=== PATIENT | female | born 1950 | race Caucasian/White ===

== ENCOUNTER → 2017-03-16 | Outpatient (POV) | payer MEDICARE, BC, SELFPAY | PROVIDERS: Visit Provider Internal Medicine | DX: I20.8 Other forms of angina pectoris (principal); I10 Essential (primary) hypertension; E78.5 Hyperlipidemia, unspecified; R00.1 Bradycardia, unspecified; R94.31 Abnormal electrocardiogram [ECG] [EKG]; G89.29 Other chronic pain; Z77.22 Contact with and (suspected) exposure to environmental tobacco smoke (acute) (chronic) | CPT/HCPCS: 36415; 71020; 80048; 80061; 80076; 84439; 84443; 85025; 93005 ==

== ENCOUNTER → 2017-03-18 | Outpatient (CLI) | payer MEDICARE, BC, SELFPAY | PROVIDERS: Family Provider Family Medicine; Visit Provider Internal Medicine | DX: I20.8 Other forms of angina pectoris (principal); I10 Essential (primary) hypertension; E78.5 Hyperlipidemia, unspecified; R00.1 Bradycardia, unspecified; Z77.29 Contact with and (suspected) exposure to other hazardous substances | CPT/HCPCS: 93306 ==

== ENCOUNTER → 2017-04-09 10:52 | Outpatient (CLI) | payer MEDICARE, BC, SELFPAY ==
--- NOTE | 2017-04-09 10:57 | NM_ITS ---
SPECT MYOCARDIAL PERFUSION SCAN, REST AND STRESS: EXERCISE STRESS: [facility] REVIEW QGS EF AND WALL MOTION EVALUATION: QPS - PERFUSION EVALUATION: HISTORY: Chest pain PROCEDURE: Rest imaging performed after administration of10.33 millicuries Tc MIBI. Dose administered at11:05 a.m., with imaging thereafter. Stress imaging was then performed following9 minutes 30 seconds of exercise stress. The patient achieved a heart [id number] with projected heart rate of120 . Resting BP169/76 with stress 168/86. At maximum exercise stress,30.6 millicuries Tc MIBI administered at1:15 pm with minutes thereafter. FINDINGS: Perfusion Evaluation: The single slice spect images as well as the [facility] bull's-eye data summary were reviewed. Wall Motion and Ejection Fraction Evaluation: Gated SPECT review and analysis used to evaluate these features. There is a 72 % left ventricular ejection fraction. There seems to be good wall motion Uniform myocardial activity with both stress and rest IMPRESSION: No scintigraphic evidence of exercise induced myocardial ischemia. Normal ejection fraction normal wall motion
== END ==
PROVIDERS: Family Provider Family Medicine; PCP Family Medicine; Visit Provider Internal Medicine
DX: R94.31 Abnormal electrocardiogram [ECG] [EKG] (principal); I20.9 Angina pectoris, unspecified; Z77.22 Contact with and (suspected) exposure to environmental tobacco smoke (acute) (chronic); I10 Essential (primary) hypertension; E78.4 Other hyperlipidemia
CPT/HCPCS: 78452; 93017; A9502

== ENCOUNTER → 2017-04-14 11:52 | Outpatient (CLI) | payer MEDICARE, BC, SELFPAY ==
[2017-04-14 12:16] LABS: Basophils # 0.1 K/mm3 (0-0.2); Basophils % 0.9 % (0.1-2.0); Eosinophils # 0.3 K/mm3 (0.0-0.4); Eosinophils % 2.2 % (0.1-12.0); Hematocrit 41.5 % (37.0-47.0); Hemoglobin 13.5 g/dL (12.2-16.2); Lymphocytes # 4.4 K/mm3 (0.7-4.5); Lymphocytes % 38.6 K/mm3 (10-50); Mean Corpuscular HGB Conc 32.5 g/dL (31.8-35.4); Mean Corpuscular Hemoglobin 28.9 pg (27.0-31.2); Mean Corpuscular Volume 88.8 fl (81-99); Mean Platelet Volume 7.8 fl (7.4-10.4); Monocytes # 0.6 K/mm3 (0.1-1.0); Monocytes % 5.5 % (1.7-9.3); Neutrophils # 5.9 K/mm3 (1.8-7.8); Neutrophils % 52.8 % (37.0-80.0); Platelet Count 237 K/mm3 (142-424); Red Blood Count 4.67 M/mm3 (4.20-5.40); Red Cell Distribution Width 13.3 % (11.5-17.5); White Blood Count 11.3 K/mm3 (4.8-10.8)
[2017-04-14 13:03] LABS: Anion Gap 10.4 mEq/L (5-15); Blood Urea Nitrogen 21 mg/dL (7-18); Carbon Dioxide 32 mmol/L (21.0-32.0); Chloride 102 mmol/L (98-107); Creatinine,Serum 0.84 mg/dL (0.55-1.02); Estimated Glomerular Filt Rate 67 ml/min (>60); GFR (African American) 82 ML/MIN (>60); Glucose 102 mg/dL (74-106); Potassium 4.4 mmoL/L (3.5-5.1); Sodium 140 mmol/L (136-145)
== END ==
PROVIDERS: PCP Internal Medicine; Visit Provider Internal Medicine
DX: R94.39 Abnormal result of other cardiovascular function study (principal); I20.8 Other forms of angina pectoris; I10 Essential (primary) hypertension; Z77.22 Contact with and (suspected) exposure to environmental tobacco smoke (acute) (chronic); J45.909 Unspecified asthma, uncomplicated; Z82.49 Family history of ischemic heart disease and other diseases of the circulatory system
CPT/HCPCS: 36415; 80048; 85025

== ENCOUNTER 2017-04-20 07:28 | Day surgery (SDC) | payer MEDICARE, BC, SELFPAY ==
[2017-04-20] VITALS (15 sets, daily range): BP systolic 111–186; BP diastolic 60–96; PULSE 59–83; RESP 16–20; TEMP 36.9; O2SAT 93–100; BMI 22.3
--- NOTE | 2017-04-20 | IR_ITS ---
CARDIAC CATHETERIZATION DATE OF CATHETERIZATION:04/20/2017 11:10 AM PROCEDURES: 1. Left heart catheterization 2. Left ventriculogram 3. Selective coronary angiogram 4. Drug-eluting stent deployment to the distal dominant circumflex artery 5. FFR to the LAD 6. FFR to the ramus intermedius INDICATION FOR TEST: 1. Intolerable angina pectoris despite 2 antianginal medications 2. Abnormal stress test 3. Coronary artery disease Informed consent was obtained prior to the procedure. COMPLICATIONS: None ESTIMATED BLOOD LOSS: Less than 10 ml. TECHNIQUE: One percent lidocaine was used to anesthetize the right groin. The right femoral artery was accessed via the Seldinger technique. A 4-Botswanan sheath was placed in the right femoral artery. The JL-4 and JR-4 catheter was also used to perform left heart catheterization left ventriculogram and selective coronary angiogram. At the end of the diagnostic angiogram the 4 B[place]wanan sheath was exchanged for a 6 B[place]wanan sheath and 8000 units of heparin was administered intravenously. An ACT of 343 seconds. A JL 4 guide catheter was used intubate the left main artery and a choice PT wire was placed into the distal circumflex. A 2.75 x 15 mm resolute Naselle stent was deployed at 20 chaparro reducing the focal 80-90% stenosis to less than 10%. Excellent angiographic results were obtained with JAMIE-3 flow down the vessel before and after the procedure. Following this an FFR wire was normalized in the ascending aorta and then placed into the LAD. Adenosine was infused per protocol which produced an FFR index of 0.84. This did not meet hemodynamic significance therefore the wire was pulled back and placed into the ramus intermedius and adenosine was infused this time producing an FFR index of 0.87. At the end of the procedure the closing ACT was 308 seconds. The apparatus was removed the groin is reprepped closure changed sheath was removed and hemostasis was achieved using Perclose device patient transferred to the postop holding area in stable condition ANGIOGRAPHIC RESULTS: 1. The left main artery normal 2. The left anterior descending artery is a small caliber vessel and has a proximal concentric 60% stenosis with normal mid segment and distal segment which produced an FFR index of 0.84 3. The ramus intermedius is a large vessel and has a proximal eccentric 50-60% stenosis which produced an FFR index of 0.87 4. The circumflex artery is a large dominant vessel and has a distal ventriculogram and 90% stenosis 5. The right coronary artery is a vestigial vessel and normal 6. The DENNISON ventriculogram reveals normal 65% 7. The left ventricular end-diastolic pressure 10 to 15 mmHg IMPRESSION: 1. Coronary artery disease as described above 2. Successful stenting of the distal circumflex artery severe disease reduced to 0% with 1 drug-eluting stent 3. Angiographically moderate to severe proximal LAD disease which produced an FFR index of 0.84 which is not hemodynamically significant at this time 4. Angiographically moderate disease in the proximal large ramus intermedius which produced an FFR 5. 0.87 which is not hemodynamically significant at this time 6. Normal ejection fraction 7. Very mildly elevated LVEDP PLAN: 1. Brilinta and aspirin 2. LDL less than 55 3. Risk factor modification 4. Avoidance of tobacco products 5. Cardiac rehabilitation
[2017-04-20 08:13] LABS: Basophils # 0.1 K/mm3 (0-0.2); Basophils % 0.8 % (0.1-2.0); Eosinophils # 0.3 K/mm3 (0.0-0.4); Eosinophils % 2.8 % (0.1-12.0); Hematocrit 40.5 % (37.0-47.0); Hemoglobin 13.4 g/dL (12.2-16.2); Lymphocytes % 45.5 K/mm3 (10-50); Mean Corpuscular HGB Conc 33.2 g/dL (31.8-35.4); Mean Corpuscular Hemoglobin 29.4 pg (27.0-31.2); Mean Corpuscular Volume 88.5 fl (81-99); Monocytes # 0.5 K/mm3 (0.1-1.0); Monocytes % 5.7 % (1.7-9.3); Neutrophils % 45.2 % (37.0-80.0); Platelet Count 220 K/mm3 (142-424); Red Blood Count 4.57 M/mm3 (4.20-5.40); Red Cell Distribution Width 13.2 % (11.5-17.5); White Blood Count 8.9 K/mm3 (4.8-10.8)
[2017-04-20 08:17] LABS: Anion Gap 9.9 mEq/L (5-15); Blood Urea Nitrogen 27 mg/dL (7-18); Carbon Dioxide 30 mmol/L (21.0-32.0); Chloride 103 mmol/L (98-107); Creatinine Clearance Estimated 46 mL/min (0-300); Estimated Glomerular Filt Rate 62 ml/min (>60); GFR (African American) 75 ML/MIN (>60); Glucose 94 mg/dL (74-106); Potassium 3.9 mmoL/L (3.5-5.1); Sodium 139 mmol/L (136-145)
[2017-04-20 14:50] LABS: CATHL Activated Clotting Time 308 SEC (74-125)
[2017-04-20 14:51] LABS: CATHL Activated Clotting Time 343 SEC (74-125)
[2017-04-20 15:26] LABS: POC Glucose,Bedside 107 mg/dL
== END 2017-04-20 15:17 | disposition home or self-care (01) ==
LOC: CATHLAB 07:30
PROVIDERS: Family Provider Family Medicine; PCP Internal Medicine; Visit Provider Internal Medicine
DX: I25.119 Atherosclerotic heart disease of native coronary artery with unspecified angina pectoris; R94.39 Abnormal result of other cardiovascular function study; Z72.0 Tobacco use; I11.9 Hypertensive heart disease without heart failure
CPT/HCPCS: 80048; 82962; 85025; 85347; 92928; 93458; 93571; 93572; 99152; 99153; C1725; C1760; C1769; C1876; C9600; J0153; J1644; Q9967

== ENCOUNTER → 2017-05-06 11:22 | Outpatient (CLI) | payer MEDICARE, BC, SELFPAY ==
[2017-05-06 11:31] LABS: Microscopic, Urine URINE MICROSCOPIC (MICROSCOPIC)
[2017-05-06 11:53] LABS: Appearance,Urine CLEAR (Clear); Bilirubin,Urine Negative (Negative); Blood, Urine Negative (Negative); Color,Urine YELLOW (Yellow); Glucose,Urine (UA) Negative (Negative); Ketones,Urine Negative (Negative); Leukocyte Esterase,Urine Negative (Negative); Nitrate,Urine Negative (Negative); PH,Urine 6.5 (5.0-8.5); Protein,Urine Negative (Negative); Specific Gravity, Urine 1.015 (1.005-1.030); Urobilinogen,Urine 0.2 EU/dl (0.2)
[2017-05-06 12:34] LABS: Anion Gap 11.5 mEq/L (5-15); Blood Urea Nitrogen 24 mg/dL (7-18); Carbon Dioxide 30 mmol/L (21.0-32.0); Chloride 104 mmol/L (98-107); Creatine Kinase 109 U/L (26-192); Creatinine,Serum 1.14 mg/dL (0.55-1.02); Estimated Glomerular Filt Rate 47 ml/min (>60); GFR (African American) 57 ML/MIN (>60); Glucose 105 mg/dL (74-106); Potassium 4.5 mmoL/L (3.5-5.1); Sodium 141 mmol/L (136-145)
[2017-05-06 12:39] LABS: Bacteria,Urine Trace /lpf; RBC,Urine Occasional #/hpf (0-3); WBC,Urine Occasional #/hpf (0-3)
== END ==
PROVIDERS: PCP Family Medicine; Visit Provider Internal Medicine
DX: E78.5 Hyperlipidemia, unspecified (principal)
CPT/HCPCS: 36415; 80048; 81001; 82550

== ENCOUNTER 2017-05-12 12:03 | Emergency (ER) | payer MEDICARE, BC, SELFPAY ==
[2017-05-12 12:55] VITALS: BP 120/65; PULSE 77; RESP 18; TEMP 37.9; O2SAT 98; BMI 21.5
--- NOTE | 2017-05-12 13:01 | HMH.EDUTC ---
[facility] [place] Disposition Clinical Impression: Influenza Disposition: Home, Self-Care Condition on Discharge: Good Instructions: Influenza Additional Instructions: ? Start Tamiflu today if you are going to take it. Discussed risk and possible benefits. ? Lots of rest ? Increase Fluids water, Gatorade, powerade, pedialyte,if /toddler/child ? Alternate Tylenol and / or ibuprofen as discussed for fever, aches, chills x 24 hours without medication for symptoms ? Follow up IMMEDIATELY for new or worsening Symptoms OR no noticeable improvement over the next 48-72 hours, 911 for difficulty or breathing ? You or your child area contagious until no fever, aches, chills for 24 hours with medication for symptoms Prescriptions: Dextromethorphan Polistirex [Delsym] 10 ml PO Q12H PRN #300 jasson.er.12h PRN Reason: Cough Oseltamivir Phosphate [Tamiflu 75mg Capsule] 75 mg PO BID #10 cap Referrals: Ciaran Stubbs MD [Primary Care Provider] - Time of Disposition: 13:10 Medical Decision Making - Medical Records Medical records reviewed: Yes: I reviewed the patient's medical records. Vital Signs: 05/12/17 12:55 Temperature 100.2 F H Temperature Source Temporal Artery Scan Pulse Rate [Right] 77 Respiratory Rate 18 Blood Pressure [Right Arm] 120/65 Blood Pressure Mean [Right Arm] 83 Blood Pressure Source [Right Arm] Automatic Cuff Blood Pressure Position [Right Arm] Sitting 02 Sat by Pulse Oximetry 98 Oxygen Delivery Method Room Air - Jaya Inquiry Pt receiving controlled substance: No Jaya was queried for this patient: No - Reevaluation(s) Reevaluation #1: Patient denies shortness of breath state that she has bad cough and didn't get much rest last night due to the coughing. State that she came in because she felt like she may have the flu [facility] [place] HPI - General Stated complaint: flu like symptoms Mode of Arrival: Ambulatory Source of Information: Patient Limitations: No Limitations Description of Symptoms (Recalled from Triage Doc. by RN): STATES HAS FLU HEENT Symptoms (Recalled from RN notes): Yes Resp Symptoms (Recalled from RN notes): No Skin Symptoms (Recalled from RN notes): No MS Symptoms (Recalled from RN notes): No Functional Status (Recalled from RN notes): N - History of Present Illness Provider Complaint: Patient state that she has been having flu like symptoms since yesterday that has continued to get worse State that she began running a low grade fever this morning and having a bad cough States that she continued to feel worse so she came in to get checked - Related Data Home Medications Medication Instructions Recorded Confirmed albuterol sulfate HFA 90 2 puff INHALATION Q6H 03/30/17 04/19/17 mcg/actuation aerosol inhaler bisoprolol 10 1 tab PO QDAY 03/30/17 04/19/17 mg-hydrochlorothiazide 6.25 mg tablet calcium carbonate 500 mg calcium 500 mg PO QDAY tab 03/30/17 04/19/17 (1,250 mg) chewable tablet cholecalciferol (vitamin D3) 400 400 unit PO QDAY 03/30/17 04/19/17 unit tablet diphenhydramine 25 mg capsule 50 mg PO TID-QID PRN 03/30/17 04/19/17 losartan 100 mg tablet 100 mg PO QDAY 03/30/17 04/19/17 meloxicam 15 mg tablet 15 mg PO QDAY 03/30/17 04/19/17 simvastatin 20 mg tablet 40 mg PO QAM tab 04/02/17 04/19/17 aspirin 81 mg tablet,delayed 81 mg PO QDAY 04/28/17 release ticagrelor 90 mg tablet 90 mg PO BID 04/28/17 cyclobenzaprine 5 mg tablet 5 mg PO TID PRN 05/11/17 Previous Rx's Medication Instructions Recorded amlodipine 10 mg tablet 10 mg PO BID #60 tab 04/28/17 ranolazine ER 500 mg 500 mg PO Q12H #60 tab 05/11/17 tablet,extended release,12 hr Dextromethorphan Polistirex 10 ml PO Q12H PRN #300 jasson.er.12h 05/12/17 [Delsym] Oseltamivir Phosphate [Tamiflu 75 mg PO BID #10 cap 05/12/17 75mg Capsule] Allergies Allergy/AdvReac Type Severity Reaction Status Date / Time PENICILLIN Allergy Intermediate I-RASH Uncoded 03/16/17 15:05 - Worker
--- NOTE | 2017-05-12 13:04 | ED_ITS ---
[facility] [place] Impression: Influenza Disposition: Home, Self-Care Condition on Discharge: Good Instructions: Influenza Additional Instructions: ? Start Tamiflu today if you are going to take it. Discussed risk and possible benefits. ? Lots of rest ? Increase Fluids water, Gatorade, powerade, pedialyte,if infant/toddler/child ? Alternate Tylenol and / or ibuprofen as discussed for fever, aches, chills x 24 hours without medication for symptoms ? Follow up IMMEDIATELY for new or worsening Symptoms OR no noticeable improvement over the next 48-72 hours, 911 for difficulty or breathing ? You or your child area contagious until no fever, aches, chills for 24 hours with medication for symptoms Prescriptions: Dextromethorphan Polistirex [Delsym] 10 ml PO Q12H PRN #300 jasson.er.12h PRN Reason: Cough Oseltamivir Phosphate [Tamiflu 75mg Capsule] 75 mg PO BID #10 cap Referrals: Ciaran Stubbs MD [Primary Care Provider] - Time of Disposition: 13:10 Medical Decision Making - Medical Records Medical records reviewed: Yes: I reviewed the patient's medical records. Vital Signs: 05/12/17 12:55 Temperature 100.2 F H Temperature Source Temporal Artery Scan Pulse Rate [Right] 77 Respiratory Rate 18 Blood Pressure [Right Arm] 120/65 Blood Pressure Mean [Right Arm] 83 Blood Pressure Source [Right Arm] Automatic Cuff Blood Pressure Position [Right Arm] Sitting 02 Sat by Pulse Oximetry 98 Oxygen Delivery Method Room Air - Jaya Inquiry Pt receiving controlled substance: No Jaya was queried for this patient: No - Reevaluation(s) Reevaluation #1: Patient denies shortness of breath state that she has bad cough and didn't get much rest last night due to the coughing. State that she came in because she felt like she may have the flu [facility] [place] - General Stated complaint: flu like symptoms Mode of Arrival: Ambulatory Source of Information: Patient Limitations: No Limitations Description of Symptoms (Recalled from Triage Doc. by RN): STATES HAS FLU HEENT Symptoms (Recalled from RN notes): Yes Resp Symptoms (Recalled from RN notes): No Skin Symptoms (Recalled from RN notes): No MS Symptoms (Recalled from RN notes): No Functional Status (Recalled from RN notes): N - History of Present Illness Provider Complaint: Patient state that she has been having flu like symptoms since yesterday that has continued to get worse State that she began running a low grade fever this morning and having a bad cough States that she continued to feel worse so she came in to get checked - Related Data Home Medications Medication Instructions Recorded Confirmed albuterol sulfate HFA 90 2 puff INHALATION Q6H 03/30/17 04/19/17 mcg/actuation aerosol inhaler bisoprolol 10 1 tab PO QDAY 03/30/17 04/19/17 mg-hydrochlorothiazide 6.25 mg tablet calcium carbonate 500 mg calcium 500 mg PO QDAY tab 03/30/17 04/19/17 (1,250 mg) chewable tablet cholecalciferol (vitamin D3) 400 400 unit PO QDAY 03/30/17 04/19/17 unit tablet diphenhydramine 25 mg capsule 50 mg PO TID-QID PRN 03/30/17 04/19/17 losartan 100 mg tablet 100 mg PO QDAY 03/30/17 04/19/17 meloxicam 15 mg tablet 15 mg PO QDAY 03/30/17 04/19/17 simvastatin 20 mg tablet 40 mg PO QAM tab 04/02/17 04/19/17 aspirin 81 mg tablet,delayed 81 mg PO QDAY 04/28/17 release
[2017-05-12 13:11] LABS: UTC Influenza A Antigen Negative (Negative); UTC Influenza B Antigen Positive (Negative)
[2017-05-12 13:12] VITALS: BP 128/77; PULSE 88; RESP 20; TEMP 37.7
== END 2017-05-12 13:17 | disposition home or self-care (01) ==
PROVIDERS: Emergency Provider Nurse Practitioner; Family Provider Family Medicine; PCP Family Medicine
DX: J11.1 Influenza due to unidentified influenza virus with other respiratory manifestations (principal); Z79.82 Long term (current) use of aspirin; J45.909 Unspecified asthma, uncomplicated; E78.5 Hyperlipidemia, unspecified; I10 Essential (primary) hypertension; Z88.0 Allergy status to penicillin; Z96.642 Presence of left artificial hip joint
CPT/HCPCS: G0463; 87804; 99202

== ENCOUNTER 2017-06-01 12:49 | Outpatient (RCR) | payer MEDICARE, BC, SELFPAY | END 2017-07-28 11:14 | disposition home or self-care (01) | LOC: PT 12:49 | PROVIDERS: Family Provider Family Medicine; PCP Family Medicine; Visit Provider Internal Medicine | DX: Z95.5 Presence of coronary angioplasty implant and graft (principal) | CPT/HCPCS: 93798 ==

== ENCOUNTER → 2017-07-20 13:34 | Outpatient (CLI) | payer MEDICARE, BC, SELFPAY ==
[2017-07-20 16:01] LABS: Anion Gap 13.6 mEq/L (5-15); Blood Urea Nitrogen 29 mg/dL (7-18); Carbon Dioxide 30 mmol/L (21.0-32.0); Chloride 105 mmol/L (98-107); Creatinine,Serum 1.11 mg/dL (0.55-1.02); Estimated Glomerular Filt Rate 49 ml/min (>60); GFR (African American) 59 ML/MIN (>60); Glucose 106 mg/dL (74-106); Potassium 3.6 mmoL/L (3.5-5.1); Sodium 145 mmol/L (136-145)
== END ==
PROVIDERS: Visit Provider Internal Medicine
DX: I25.118 Atherosclerotic heart disease of native coronary artery with other forms of angina pectoris (principal); R94.31 Abnormal electrocardiogram [ECG] [EKG]; J45.909 Unspecified asthma, uncomplicated; K21.9 Gastro-esophageal reflux disease without esophagitis; I11.9 Hypertensive heart disease without heart failure; E78.4 Other hyperlipidemia
CPT/HCPCS: 36415; 80048

== ENCOUNTER → 2017-08-17 13:16 | Outpatient (CLI) | payer MEDICARE, BC, SELFPAY ==
[2017-08-17 14:28] LABS: Alanine Aminotransferase 24 U/L (12-78); Alkaline Phosphatase 83 U/L (46-116); Aspartate Amino Transferase 23 U/L (15-37); Bilirubin,Direct 0.2 mg/dL (0.0-0.2); Bilirubin,Indirect 0.4 mg/dL (0.0-0.9); Bilirubin,Total 0.6 mg/dL (0.2-1.0); Chol/HDL Ratio 3.6 (1-3.5); Cholesterol 210 mg/dL (140-200); HDL Cholesterol 59 mg/dL (29-89); LDL Cholesterol 120 mg/dL (0-130); Total Protein,Serum 6.9 gm/dL (6.4-8.2); Triglycerides 155 mg/dL (30-200); VLDL Cholesterol 31 mg/dL (0-40)
== END ==
PROVIDERS: Family Provider Family Medicine; PCP Family Medicine; Visit Provider Internal Medicine
DX: E78.5 Hyperlipidemia, unspecified (principal); I10 Essential (primary) hypertension
CPT/HCPCS: 36415; 80061; 80076

== ENCOUNTER → 2017-09-28 08:33 | Outpatient (CLI) | payer MEDICARE, BC, SELFPAY ==
[2017-09-28 09:53] LABS: Alanine Aminotransferase 23 U/L (12-78); Albumin Level 3.8 gm/dL (3.4-5.0); Alkaline Phosphatase 73 U/L (46-116); Aspartate Amino Transferase 18 U/L (15-37); Bilirubin,Direct 0.1 mg/dL (0.0-0.2); Bilirubin,Indirect 0.2 mg/dL (0.0-0.9); Bilirubin,Total 0.3 mg/dL (0.2-1.0); Chol/HDL Ratio 3.9 (1-3.5); Cholesterol 212 mg/dL (140-200); HDL Cholesterol 54 mg/dL (29-89); LDL Cholesterol 114 mg/dL (0-130); Total Protein,Serum 6.6 gm/dL (6.4-8.2); Triglycerides 219 mg/dL (30-200); VLDL Cholesterol 44 mg/dL (0-40)
== END ==
PROVIDERS: Visit Provider Urology
DX: E78.5 Hyperlipidemia, unspecified (principal)
CPT/HCPCS: 36415; 80061; 80076

== ENCOUNTER → 2017-11-22 09:46 | Outpatient (CLI) | payer MEDICARE, BC, SELFPAY ==
[2017-11-22 10:52] LABS: Alanine Aminotransferase 26 U/L (12-78); Albumin Level 3.7 gm/dL (3.4-5.0); Alkaline Phosphatase 72 U/L (46-116); Aspartate Amino Transferase 17 U/L (15-37); Bilirubin,Direct 0.1 mg/dL (0.0-0.2); Bilirubin,Indirect 0.3 mg/dL (0.0-0.9); Bilirubin,Total 0.4 mg/dL (0.2-1.0); Chol/HDL Ratio 2.8 (1-3.5); Cholesterol 171 mg/dL (140-200); HDL Cholesterol 62 mg/dL (29-89); LDL Cholesterol 84 mg/dL (0-130); Total Protein,Serum 6.5 gm/dL (6.4-8.2); Triglycerides 127 mg/dL (30-200); VLDL Cholesterol 25 mg/dL (0-40)
== END ==
PROVIDERS: PCP Family Medicine; Visit Provider Urology
DX: E78.5 Hyperlipidemia, unspecified (principal)
CPT/HCPCS: 36415; 80061; 80076

== ENCOUNTER → 2017-12-10 12:22 | Outpatient (CLI) | payer MEDICARE, BC, SELFPAY ==
--- NOTE | 2017-12-10 12:26 | XR_ITS ---
XR finger RT min 2V HISTORY: Trauma ITS.REASON: RT THUMB PAIN ORDERING PHYSICIAN: Ciaran Stubbs MD PATIENT AGE: 67 years COMPARISON: None FINDINGS: There is a nondisplaced corner fracture at the base of the distal phalanx of the thumb. It does appear that the fracture extends to the articular cortex of the IP joint. The first metacarpal and proximal phalanx appear intact. There is minor arthritic change at the first carpometacarpal joint.. No erosive changes evident.. 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
== END ==
PROVIDERS: PCP Family Medicine; Visit Provider Family Medicine
DX: M79.644 Pain in right finger(s) (principal)
CPT/HCPCS: 73140

== ENCOUNTER 2018-01-13 14:28 | Outpatient (RCR) | payer MEDICARE, BC, SELFPAY | END 2018-03-17 12:14 | disposition home or self-care (01) | LOC: PT 14:28 | PROVIDERS: Family Provider Family Medicine; PCP Family Medicine; Visit Provider Internal Medicine | DX: I25.10 Atherosclerotic heart disease of native coronary artery without angina pectoris (principal) | CPT/HCPCS: 93798 ==

== ENCOUNTER → 2018-02-03 15:57 | Outpatient (CLI) | payer MEDICARE, BC, SELFPAY ==
--- NOTE | 2018-02-03 16:03 | XR_ITS ---
XR knee LT 3V HISTORY: ITS.REASON: ACUTE LT KNEE PAIN ORDERING PHYSICIAN: Ciaran Stubbs MD PATIENT AGE: 67 years COMPARISON: 08/30/2007 FINDINGS: Lucency is present in the distal femur and proximal tibia from prior ACL repair. Study is otherwise unremarkable. No fracture or dislocation. No lytic or blastic change. Normal mineralization. No significant arthritic changes evident. No other significant findings IMPRESSION: Postsurgical changes stable since 08/30/2007, no change with no acute finding
== END ==
PROVIDERS: PCP Family Medicine; Visit Provider Family Medicine
DX: M25.562 Pain in left knee (principal)
CPT/HCPCS: 73562

== ENCOUNTER → 2018-02-18 11:35 | Outpatient (CLI) | payer MEDICARE, BC, SELFPAY ==
--- NOTE | 2018-02-18 11:37 | NM_ITS ---
SPECT MYOCARDIAL PERFUSION SCAN, REST AND STRESS: EXERCISE STRESS: [facility] REVIEW QGS EF AND WALL MOTION EVALUATION: QPS - PERFUSION EVALUATION: HISTORY: Chest pain, Fatigue, CAD, HTN PROCEDURE: Rest imaging performed after administration of10.89 millicuries Tc MIBI. Dose administered at12:10 p.m., with imaging thereafter. Stress imaging was then performed following9 minutes of exercise stress. The patient achieved a heart [id number] with projected heart rate of128 . Resting BP145/67 with stress 150/70. At maximum exercise stress,32.5 millicuries Tc MIBI administered at1:45 p.m. with [id number] minutes thereafter. FINDINGS: Perfusion Evaluation: The single slice spect images as well as the [facility] bull's-eye data summary were reviewed. Wall Motion and Ejection Fraction Evaluation: Gated SPECT review and analysis used to evaluate these features. There is a 73% % left ventricular ejection fraction. There seems to be good wall motion Uniform myocardial activity both stress and rest gated images calculated ejection fraction is 73% with normal wall motion IMPRESSION: No scintigraphic evidence of exercise induced myocardial ischemia with normal ejection fraction normal wall motion
--- NOTE | 2018-02-18 12:12 | HMH.ITSHM ---
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 []ATORVASTATIN AMLODIPINE ASA LOSARTAN HCTZ PLAVIX BISOPROLOL MELOXICAM
== END ==
PROVIDERS: PCP Family Medicine; Visit Provider Internal Medicine
DX: I20.8 Other forms of angina pectoris; I11.9 Hypertensive heart disease without heart failure; J45.909 Unspecified asthma, uncomplicated; K21.9 Gastro-esophageal reflux disease without esophagitis; R00.1 Bradycardia, unspecified; R06.00 Dyspnea, unspecified; R94.31 Abnormal electrocardiogram [ECG] [EKG]; Z77.22 Contact with and (suspected) exposure to environmental tobacco smoke (acute) (chronic); E78.49 Other hyperlipidemia
CPT/HCPCS: 78452; 93017; A9502

== ENCOUNTER → 2018-02-23 08:14 | Outpatient (CLI) | payer MEDICARE, BC, SELFPAY ==
--- NOTE | 2018-02-23 08:16 | MM_ITS ---
MM Dig screening mamm BI w/CAD ORDERING PHYSICIAN : Ciaran Stubbs MD PATIENT AGE: 67 years GENDER: Female COMPARISON: August 20162011, November 2009 bilateral mammogram INDICATION: ITS.REASON: SCREENING no hormones. No new complaints. Noncontributory family history. The patient does note history of skin cancer TECHNIQUE: Standard CC and MLO images were obtained. R2 CAD reviewed. FINDINGS: Areas of Very dense areas of breast tissue are seen throughout the central coneof both breast. Mammography is of decreased sensitivity in areas of this very dense breast character. . RIGHT BREAST:. On MLO view there is additional fullness at superior left breast. This may be due to overlapping shadows but would recommend CC, MLO spot view as well as ultrasound right breast to further evaluate. On the MLO view is difficult to exclude underlying nearly 4 cm ovoid density at superior right breast. LEFT BREAST:On the left breast there is a area of dense tissue at the central breast on cc view, more pronounced than previous study. Still I suspect it is merely dense fibroglandular tissue but would suggest spot view here cc and MLO spot at the central breast with ultrasound of left breast. I do not see any previous ultrasound and I believe it would be helpful in this very dense breasts to augment mammography and to more optimally evaluate these areas of dense tissue. It also be helpful as Baseline reference --------IMPRESSION: ----- Dense breast, with areas of slightly denser breast tissue noted bilaterally- although may merely be due to overlapping shadows, these areas would benefit from ultrasound & additional Spot views, bilaterally.: Right breast: Question slight denser ovoid area at the superior right breast on MLO view today, Left breast:. Questionable area of slight increased density left breast on cc view. Recommend bilateral breast ultrasound & spot views of these areas to further evaluate BI-RADS Category: 0 Need Additional Imaging Evaluation RECOMMENDED FOLLOW-UP: IMM - IMMEDIATE FOLLOW-UP RECOMMENDED Bilateral breast ultrasound. Bilateral Spot views (A letter has been sent to the patient regarding results of the study.)
== END ==
PROVIDERS: PCP Family Medicine; Visit Provider Family Medicine
DX: Z12.31 Encounter for screening mammogram for malignant neoplasm of breast (principal)
CPT/HCPCS: 77067

== ENCOUNTER → 2018-03-25 13:24 | Outpatient (CLI) | payer MEDICARE, BC, SELFPAY ==
--- NOTE | 2018-03-25 13:31 | MM_ITS ---
MM Dig mamm BI DX w/CAD COMPARISON: Digital mammograms with CAD 02/23/2018 INDICATION: Evaluation of possible asymmetric densities in each breast TECHNIQUE: Spot compression MLO and CC views and spot compression 90 degree lateral views FINDINGS: Prominent heterogenic fibroglandular densities are seen in the central portions of both breasts. The subtle and questionable ovoid area of increased density right breast appears to compress out on the additional views in the center which is a benign-appearing calcification. Also the area of slightly increased density central portion left breast presses out on the additional views. IMPRESSION: Negative problem-solving views of each breast, recommend the patient continue with yearly screening mammography BI-RADS Category: 2 Benign Finding(s) RECOMMENDED FOLLOW-UP: 1YR - 1 YEAR FOLLOW-UP (A letter has been sent to the patient regarding results of the study.)
--- NOTE | 2018-03-25 13:32 | US_ITS ---
US breast RT complete, US breast LT complete Ordering Physician: Ciaran Stubbs MD Patient Age: 67 years: Female HISTORY: ITS.REASON: ABNORMAL MAMM History: Dense breast with asymmetric densities on recent mammogram TECHNIQUE: Ultrasound both breast including axillary survey COMPARISON :Today's studies are compared to mammogram studies from today 03/25/2018 and February 23, 2018 screening mammogram. Also August 2016 and 2011 bilateral mammogram studies utilized. RIGHT BREAST ULTRASOUND. Dense breast tissue. . 12:00:. Small 5.3 mm hypoechoic nodule versus debris-filled cyst. Smooth margins. Benign configuration by ultrasound. Follow-up adequate. 5:00.: Small 7.4 mm cyst with minimal septation.. A few benign axillary lymph nodes observed not concern LEFT BREAST ULTRASOUND: Dense breast tissue. 1:00. Small likely intramammary lymph node versus small echogenic lipoma. This benign-appearing area just less than 1 cm length. Scattered scattered axillary lymph nodes. Overall benign appearance with largest measuring up 1.6 cm length. IMPRESSION: Right breast ultrasound. Small 5.4 mm benign-appearing semisolid nodule or echogenic debris-filled cyst at 12:00.. Suggest follow-up right breast ultrasound 6-8 months to confirm stable, hopefully with routine protocol thereafter Left breast ultrasound. Dense breasts.. Benign features. Follow up one year. BI-RADS Category: 3 Probably Benign Finding Short Term Follow-up Ultrasound only right breast 6 months. RECOMMENDED FOLLOW-UP: 6M - 6 MONTH FOLLOW-UP (A letter has been sent to the patient regarding the results of the study.)
== END ==
PROVIDERS: PCP Family Medicine; Visit Provider Family Medicine
DX: R92.8 Other abnormal and inconclusive findings on diagnostic imaging of breast (principal)
CPT/HCPCS: 76641; 77066

== ENCOUNTER → 2018-09-09 09:21 | Outpatient (CLI) | payer MEDICARE, SELFPAY ==
[2018-09-09 10:53] LABS: Creatinine,Urine Random 60 mg/dL (20-320)
[2018-09-09 11:26] LABS: Alanine Aminotransferase 26 U/L (12-78); Albumin Level 3.7 gm/dL (3.4-5.0); Albumin/Globulin Ratio 1.3 (1.1-1.8); Alkaline Phosphatase 71 U/L (46-116); Anion Gap 10.9 mEq/L (5-15); Aspartate Amino Transferase 19 U/L (15-37); Bilirubin,Total 0.5 mg/dL (0.2-1.0); Blood Urea Nitrogen 20 mg/dL (7-18); Calcium 9.1 mg/dL (8.5-10.1); Carbon Dioxide 29 mmol/L (21.0-32.0); Chloride 103 mmol/L (98-107); Chol/HDL Ratio 3.2 (1-3.5); Cholesterol 174 mg/dL (140-200); Creatinine,Serum 1.06 mg/dL (0.55-1.02); Estimated Glomerular Filt Rate 51 ml/min (>60); GFR (African American) 62 ML/MIN (>60); Globulin 2.8 gm/dl (1.3-3.2); Glucose 101 mg/dL (74-106); HDL Cholesterol 55 mg/dL (29-89); LDL Cholesterol 89 mg/dL (0-130); Potassium 3.9 mmoL/L (3.5-5.1); Sodium 139 mmol/L (136-145); Thyroid Stimulating Hormone 2.05 uIU/ml (0.358-3.740); Total Protein,Serum 6.5 gm/dL (6.4-8.2); Triglycerides 152 mg/dL (30-200); VLDL Cholesterol 30 mg/dL (0-40)
[2018-09-10 18:05] LABS: Microalbumin, Urine <3.0 ug/mL (Not Estab.); Vitamin D 25 Hydroxy 43.4 ng/mL (30.0-100.0)
== END ==
PROVIDERS: PCP Family Medicine; Visit Provider Family Medicine
DX: I10 Essential (primary) hypertension (principal); E78.00 Pure hypercholesterolemia, unspecified; N28.9 Disorder of kidney and ureter, unspecified; M85.80 Other specified disorders of bone density and structure, unspecified site
CPT/HCPCS: 36415; 80053; 80061; 82043; 82570; 82652; 84443

== ENCOUNTER → 2018-09-20 09:26 | Outpatient (CLI) | payer MEDICARE, SELFPAY ==
--- NOTE | 2018-09-20 09:32 | XR_ITS ---
XR DEXA axial skeleton HISTORY: ITS.REASON: OSTEOPENIA ORDERING PHYSICIAN: Ciaran Stubbs MD PATIENT AGE: 67 years COMPARISON: None FINDINGS: Exam of the lumbar spine's shows multiple levels of degenerative disc disease and sclerosis therefore evaluation of the lumbar spine is limited causing false elevation of the bone density measurement. The BMD measured at the right femoral neck is 0.822 g/cm squared with a T score of -1.6. This is considered Osteopenic according to the World Health Organization criteria. Fracture risk is mild to moderate. Treatment is advised. IMPRESSION: Osteopenia.
== END ==
PROVIDERS: PCP Family Medicine; Visit Provider Family Medicine
DX: M85.89 Other specified disorders of bone density and structure, multiple sites (principal)
CPT/HCPCS: 77080

== ENCOUNTER → 2018-10-14 11:28 | Outpatient (CLI) | payer MEDICARE, SELFPAY ==
[2018-10-14 13:27] LABS: Blood Urea Nitrogen 24 mg/dL (7-18); Calcium 9.4 mg/dL (8.5-10.1); Carbon Dioxide 28 mmol/L (21.0-32.0); Chloride 103 mmol/L (98-107); Creatinine,Serum 1.35 mg/dL (0.55-1.02); Estimated Glomerular Filt Rate 39 ml/min (>60); GFR (African American) 47 ML/MIN (>60); Glucose 94 mg/dL (74-106); Sodium 140 mmol/L (136-145)
== END ==
PROVIDERS: Urology; Visit Provider Internal Medicine
DX: I11.9 Hypertensive heart disease without heart failure (principal); I25.118 Atherosclerotic heart disease of native coronary artery with other forms of angina pectoris
CPT/HCPCS: 36415; 80048

== ENCOUNTER → 2018-10-17 12:36 | Outpatient (CLI) | payer MEDICARE, SELFPAY | PROVIDERS: PCP Family Medicine; Visit Provider Physician Assistant | DX: I10 Essential (primary) hypertension; I20.9 Angina pectoris, unspecified; I25.118 Atherosclerotic heart disease of native coronary artery with other forms of angina pectoris; I77.0 Arteriovenous fistula, acquired; M79.601 Pain in right arm; R06.02 Shortness of breath; T81.9XXA Unspecified complication of procedure, initial encounter; Z95.5 Presence of coronary angioplasty implant and graft; E78.49 Other hyperlipidemia | CPT/HCPCS: 93931 ==

== ENCOUNTER → 2019-02-10 07:51 | Outpatient (CLI) | payer MEDICARE, SELFPAY ==
--- NOTE | 2019-02-10 07:54 | CA_ITS ---
APPROVED REPORT EXAM: Comprehensive 2D, Doppler, and color-flow Echocardiogram Heating Plant Superintendent: Eve Andrade RDCS Ht: 5 ft 1 in Wt: 115lbs BSA: 1.49 BP: 102/51 mmHg Indications: Shortness of Breath, CAD, Hyperlipidemia, Hypertension/HDD 2D Dimensions LVOT 1.72 cm (M/F) 1.5-2.5 M-Mode Dimensions RVDd 1.74 cm (0.9-2.6) LVDd 4.43 cm (3.5-5.7) LVDs 2.52 cm (3.5-5.7) IVSd 0.96 cm (0.6-1.1) PWd 0.98 cm (0.6-1.1) EF (Teich) 74.40% FS 43.10% EDV (Teich) 89.10 mL ESV (Teich) 22.80 mL LV Diastology E/A Ratio 1.87 Mitral Valve MV A Velocity 44.00 (40-130 cm/s) Left Ventricle Left atrium is mildly enlarged, left ventricle is normal size, mild concentric left ventricular hypertrophy, visually estimated ejection fraction 50%, there is moderate hypokinesis involving the inferior basal wall. Grade 2 diastolic dysfunction seen without tissue Doppler evidence of raise left atrial pressure. Right Ventricle Right atrium and right ventricular normal size and contractility. Aortic Valve Aortic valve is minimally thickened and fibrosed. There is no aortic stenosis aortic insufficiency. Mitral Valve Mitral valve leaflets are minimally thickened, there is mild mitral regurgitation. Tricuspid Valve Tricuspid valve is grossly normal, there is mild tricuspid regurgitation. Pulmonic Valve Pulmonic valve is poorly visualized. Great Vessels Aortic root is normal size. Pericardium No significant pericardial effusion noted. Conclusion 1. Mildly enlarged left atrium, normal left ventricular size, mild concentric left ventricular hypertrophy, visually estimated ejection fraction 50% with segmental wall motion abnormality described above, grade 2 diastolic dysfunction seen without tissue Doppler evidence of raise left atrial pressure. 2. Mild mitral and tricuspid regurgitation. 3. No significant pericardial effusion noted. Electronically signed by : Adam Shepherd, 02/11/2019 12:32:10
== END ==
PROVIDERS: PCP Family Medicine; Visit Provider Urology
DX: R06.00 Dyspnea, unspecified (principal)
CPT/HCPCS: 93306

== ENCOUNTER → 2019-02-20 11:55 | Outpatient (CLI) | payer MEDICARE, SELFPAY ==
[2019-02-20 13:57] LABS: Blood Urea Nitrogen 49 mg/dL (7-18); Calcium 9.5 mg/dL (8.5-10.1); Carbon Dioxide 27 mmol/L (21.0-32.0); Chloride 101 mmol/L (98-107); Creatinine,Serum 2.04 mg/dL (0.55-1.02); Estimated Glomerular Filt Rate 24 ml/min (>60); GFR (African American) 29 ML/MIN (>60); Glucose 92 mg/dL (74-106); Sodium 137 mmol/L (136-145)
== END ==
PROVIDERS: Visit Provider Urology
DX: E78.5 Hyperlipidemia, unspecified (principal); I11.9 Hypertensive heart disease without heart failure; I25.10 Atherosclerotic heart disease of native coronary artery without angina pectoris; R06.00 Dyspnea, unspecified; R06.01 Orthopnea
CPT/HCPCS: 36415; 80048

== ENCOUNTER → 2019-03-03 12:32 | Outpatient (CLI) | payer MEDICARE, SELFPAY ==
[2019-03-03 13:54] LABS: Anion Gap 14.3 mEq/L (5-15); Blood Urea Nitrogen 36 mg/dL (7-18); Calcium 9.2 mg/dL (8.5-10.1); Carbon Dioxide 30 mmol/L (21.0-32.0); Chloride 101 mmol/L (98-107); Creatinine,Serum 1.74 mg/dL (0.55-1.02); Estimated Glomerular Filt Rate 29 ml/min (>60); GFR (African American) 35 ML/MIN (>60); Glucose 97 mg/dL (74-106); Potassium 5.3 mmoL/L (3.5-5.1); Sodium 140 mmol/L (136-145)
== END ==
PROVIDERS: Visit Provider Physician Assistant
DX: E78.5 Hyperlipidemia, unspecified (principal); I11.9 Hypertensive heart disease without heart failure; I25.10 Atherosclerotic heart disease of native coronary artery without angina pectoris; R06.00 Dyspnea, unspecified; R06.01 Orthopnea
CPT/HCPCS: 36415; 80048

== ENCOUNTER → 2019-03-08 12:34 | Outpatient (CLI) | payer MEDICARE, SELFPAY ==
[2019-03-08 15:23] LABS: Anion Gap 14.6 mEq/L (5-15); Blood Urea Nitrogen 41 mg/dL (7-18); Carbon Dioxide 28 mmol/L (21.0-32.0); Chloride 104 mmol/L (98-107); Creatinine,Serum 1.81 mg/dL (0.55-1.02); Estimated Glomerular Filt Rate 28 ml/min (>60); GFR (African American) 33 ML/MIN (>60); Glucose 82 mg/dL (74-106); Potassium 4.6 mmoL/L (3.5-5.1); Sodium 142 mmol/L (136-145)
== END ==
PROVIDERS: Visit Provider Urology
DX: I11.9 Hypertensive heart disease without heart failure; E78.5 Hyperlipidemia, unspecified; I25.10 Atherosclerotic heart disease of native coronary artery without angina pectoris; R06.00 Dyspnea, unspecified; R06.01 Orthopnea
CPT/HCPCS: 36415; 80048

== ENCOUNTER → 2019-04-27 09:37 | Outpatient (CLI) | payer MEDICARE, SELFPAY ==
--- NOTE | 2019-04-27 09:40 | MM_ITS ---
PROCEDURE: MM DIG SCREENING MAMM BI W/CAD CLINICAL INDICATION: SCREENING There is no personal or family history of breast cancer COMPARISON: [facility] DIG MAMM-SCREEN RADHA W/CAD from 09/16/2016 [facility] MM Dig screening mamm BI w/CAD from 02/23/2018 [facility] MM Dig mamm BI DX w/CAD from 03/25/2018 TECHNIQUE: Standard CC and MLO images and 3D Tomosinthisis was obtained. R2 CAD reviewed. FINDINGS: Prominent somewhat heterogenic fibroglandular densities are seen in the central portions of both breasts. There is a benign-appearing calcification right breast. There is a possible new asymmetric density upper-outer quadrant right breast which is better seen on the tomosynthesis views. This may represent simply asymmetric glandular elements however recommend the patient return for spot compression views and ultrasound may be necessary as well. There are no suspicious microcalcifications. IMPRESSION: Moderate diffuse breast density with possible new asymmetric density right breast BI-RAD Category: 0 Need Additional Imaging Evaluation FOLLOW-UP: IMM Immediate Follow-up Recommended (A letter has been sent to the patient regarding results of the study.) Dictated by: Dr. William Chapman MD 04/28/2019 12:[address] William Chapman MD in [place] 04/28/2019 12:49
== END ==
PROVIDERS: PCP Family Medicine; Visit Provider Family Medicine
DX: Z12.31 Encounter for screening mammogram for malignant neoplasm of breast (principal)
CPT/HCPCS: 77063; 77067

== ENCOUNTER → 2019-05-10 12:51 | Outpatient (CLI) | payer MEDICARE, SELFPAY ==
[2019-05-10 15:14] LABS: Alanine Aminotransferase 16 U/L (9-52); Alkaline Phosphatase 66 U/L (46-116); Aspartate Amino Transferase 17 U/L (15-37); Bilirubin,Direct 0.1 mg/dL (0.0-0.2); Bilirubin,Indirect 0.3 mg/dL (0.0-0.9); Bilirubin,Total 0.4 mg/dL (0.2-1.0); Chol/HDL Ratio 4.8 (1-3.5); Cholesterol 247 mg/dL (140-200); HDL Cholesterol 51 mg/dL (29-89); LDL Cholesterol 149 mg/dL (0-130); Total Protein,Serum 6.8 g/dL (6.4-8.2); Triglycerides 236 mg/dL (30-200); VLDL Cholesterol 47 mg/dL (0-40)
== END ==
PROVIDERS: Visit Provider Urology
DX: E78.5 Hyperlipidemia, unspecified (principal); I25.10 Atherosclerotic heart disease of native coronary artery without angina pectoris
CPT/HCPCS: 36415; 80061; 80076

== ENCOUNTER → 2019-05-17 11:37 | Outpatient (CLI) | payer MEDICARE, SELFPAY ==
--- NOTE | 2019-05-17 | CA_ITS ---
APPROVED REPORT Exam: Pharmacologic Technologist: Netta Melgoza Ht: 5 ft 1 in Wt: 114 lbs BSA: 1.49 m2 HR: 55 bpm BP: 145/68 mmHg Indications: Abnormal EKG, Chest Pain Medical History Medications: Amlodipine,,,,, Furosemide (LASIX),,,,, Aspirin,,,,, Vitamin D3,,,,, Losartan,,,,, Albuterol,,,,, Tramadol,,,,, Calcium,,,,, MeLOXICAM,,,,, BisOPROLOL,,,,, Cyclobenzaprine,,,,, Nitroglycerin,,,,, Stress Test Details Test: LEXISCAN HR Resting HR: 62 bpm Max Heart Rate (APMHR): 150 bpm Max HR Achieved: 105 bpm Target HR (85% APMHR): 127 bpm % of APMHR: 70 Recovery HR: 80 bpm BP Resting BP: 145.0/68.0 mmHg Max BP: 145.0/68.0 mmHg Recovery BP: 125.0/61.0 mmHg ECG Clinical Exercise duration: 04:00 min Highest Stage Achieved: Exercise capacity: 1.0 METs Stress ECG Conclusion Resting ECG: Sinus bradycardia, mild ST abnormalities inferiorly and laterally, PVC Symptoms: Chest tightness, mild shortness of air, mild stomach discomfort Arrhythmias/Ectopy: Occasional PVC, one ventricular couplet ST-T Changes: 1-1.[address] depression anterolaterally and inferiorly. Conclusion: Chest pain and EKG changes concerning for ischemia. Myoview images reported separately. Test Summary REST . . . . . . . Resting REST 27:38 . . 62 . 145/ 68 . . Stage 1 . . . . . . . Myoview Injected Stage 1 01:00 . . 98 . . . . Stage 2 01:00 . . 102 . 133/ 77 . . Stage 3 . . . . . . . chest tightness Stage 3 01:00 . . 98 . 125/ 71 . . Stage 4 01:00 . . 89 . 122/ 67 . Stop exercise at 04:00 RECOVERY 01:00 . . 91 . . . . RECOVERY 02:00 . . 86 . 121/ 58 . . RECOVERY 03:00 . . 78 . 108/ 67 . . RECOVERY 04:00 . . 81 . 108/ 67 . . RECOVERY 05:00 . . 83 . 117/ 66 . . RECOVERY 06:00 . . 80 . 117/ 66 . . RECOVERY 07:00 . . 78 . 125/ 61 . . RECOVERY 08:00 . . 81 . 125/ 61 . . RECOVERY 09:00 . . 77 . 113/ 56 . . RECOVERY 10:00 . . 80 . 113/ 56 . . RECOVERY 11:00 . . 80 . 111/ 61 . . RECOVERY 12:00 . . 82 . 111/ 61 . . RECOVERY 13:00 . . 85 . 111/ 61 . . RECOVERY 13:22 . . 83 . 116/ 59 . . Electronically signed by : Adam Shepherd, 05/18/2019 15:04:22
--- NOTE | 2019-05-17 11:38 | NM_ITS ---
APPROVED REPORT Exam: Nuclear Stress Test Indication: CAD, 3 STINTS, HTN, HYPERLIPIDEMIA, FM. HX., C.P., SOB, PALPITATIONS, SYNCOPE, FATIGUE Patient Location: Outpatient Stress Tech: Netta Melgoza [place] Tech:Amada Amor, ARRT RT (R)(N)(M) Ht: 5 ft 1 in Wt: 114 lbs Bra Size: 32B HR: 55 bpm BP: 145/68 mmHg BSA: 1.49 m2 BMI: 21.5 History: CAD, 3 STINTS, HTN, HYPERLIPIDEMIA, FM. HX., C.P., SOB, PALPITATIONS, SYNCOPE, FATIGUE Procedure: Patient received a 0.4 mg of intravenous Lexiscan, resting heart rate 55 bpm, resting blood pressure 145/68 mmHg, with Lexiscan maximum heart rate achived was 103 bpm which is Less than 85 % of the maximum predicted heart rate and blood pressure was 133/77 mmHg. PVC, C.P. Electrocardiogram Resting electrocardiogram showed sinus rhythm, with Lexiscan there is additional millimeter ST segment depression noted from the baseline EKG. The EKG portion of the Lexiscan Myoview is positive for ischemia. Cardiac Stress and Resting SPECT Images: Cardiac Stress and Resting SPECT images were obtained using technetium 99m Myoview 31.3 mCi stress and 10.18 mCi at rest. Gated SPECT with analysis of segmental wall motion and calculation of the ejection fraction also done. Cardiac stress and resting SPECT images show uniform myocardial activity without segmental perfusion abnormality, computer derived ejection fraction is over 65% with no regional wall motion abnormality, right ventricle is normal size and contractility. Conclusion: 1. The EKG portion of the Lexiscan Myoview is positive for ischemia. 2. No scintigraphic evidence of reversible ischemia seen, computer derived ejection fraction is over 65% with no regional wall motion abnormality, right ventricle is normal size and contractility. 3. Likely abnormal Lexiscan Myoview study due to abnormal EKG with Lexiscan raising the concerns for presence of balanced ischemia. Electronically signed by : Adam Shepherd, 05/18/2019 15:06:27
--- NOTE | 2019-05-17 14:00 | HMH.ITSHM ---
Current Home Medications as stated by this patient Mary Espinal or desk representative. []atorvastatin amlodipine asa plavix lasix
== END ==
PROVIDERS: PCP Family Medicine; Visit Provider Urology
DX: I50.30 Unspecified diastolic (congestive) heart failure; I20.9 Angina pectoris, unspecified; I11.0 Hypertensive heart disease with heart failure
CPT/HCPCS: 78452; 93017; A9502; J2785

== ENCOUNTER → 2019-05-18 14:24 | Outpatient (CLI) | payer MEDICARE, SELFPAY ==
--- NOTE | 2019-05-18 14:26 | MM_ITS ---
PROCEDURE: MM DIG MAMM DX UNILAT RT CAD CLINICAL INDICATION: ABNORMAL MAMM COMPARISON: Mammogram 02/23/2018, 04/27/2019, and ultrasound 05/18/2019 TECHNIQUE: Standard CC and MLO images and 3D Tomosynthesis was obtained. Coned compression tomosynthesis views are also obtained over the lateral aspect of the right breast. R2 CAD reviewed. FINDINGS: The asymmetrical density in question on the screening mammogram is not reproduced as a discrete mass on this exam. There was no sonographic correlate. IMPRESSION: BI-RAD Category: 2 Benign Finding(s) FOLLOW-UP: 1YR 1 Year Follow-up (A letter has been sent to the patient regarding results of the study.) Dictated by: Corona Orellana 05/18/2019 17:11 Electronically signed by Corona Orellana in [place] 05/18/2019 17:11
--- NOTE | 2019-05-18 14:27 | US_ITS ---
PROCEDURE: US BREAST RT COMPLETE CLINICAL INDICATION: ABNORMAL MAMM COMPARISON: Mammogram FINDINGS: 05/18/2019 at the 12 o'clock position near the nipple a 5.7 by 4.8 x 2.9 millimeter complex nodule is noted. Complicated cyst is favored. At 6 o'clock near the nipple a 4.7 by 6.9 x 3.4 millimeter septated complicated cystic lesion is noted. No sonographic correlate for asymmetrical density seen in the upper outer quadrant of the breast on the screening mammogram 04/27/2019 was apparent. Nonspecific axillary lymph nodes are noted. IMPRESSION: BI-RADS category 3 probably benign six-month follow-up exam is recommended. Dictated by: Corona Orellana 05/18/2019 15:11 Electronically signed by Corona Orellana in [facility] 05/18/2019 15:11
== END ==
PROVIDERS: PCP Family Medicine; Visit Provider Family Medicine
DX: R92.8 Other abnormal and inconclusive findings on diagnostic imaging of breast (principal)
CPT/HCPCS: 76641; 77061; 77065; G0279

== ENCOUNTER → 2019-06-06 13:00 | Outpatient (CLI) | payer MEDICARE, SELFPAY ==
[2019-06-06 14:22] LABS: Anion Gap 20.4 mEq/L (5-15); Blood Urea Nitrogen 41 mg/dl (7-17); Calcium 10.2 mg/dl (8.4-10.2); Carbon Dioxide 24 mmol/L (22.0-30.0); Chloride 99 mmol/L (98-107); Estimated Glomerular Filt Rate 25 ml/min (>60); GFR (African American) 30 ML/MIN (>60); Glucose 120 mg/dl (74-100); Potassium 5.4 mmoL/L (3.5-5.1); Sodium 138 mmol/L (136-145)
== END ==
PROVIDERS: Visit Provider Urology
DX: E78.5 Hyperlipidemia, unspecified (principal); I11.9 Hypertensive heart disease without heart failure; I20.9 Angina pectoris, unspecified
CPT/HCPCS: 36415; 80048

== ENCOUNTER → 2019-06-15 12:01 | Outpatient (CLI) | payer MEDICARE, SELFPAY ==
[2019-06-15 17:21] LABS: Anion Gap 13.9 mEq/L (5-15); Blood Urea Nitrogen 28 mg/dl (7-17); Calcium 9.8 mg/dl (8.4-10.2); Carbon Dioxide 27 mmol/L (22.0-30.0); Chloride 102 mmol/L (98-107); Estimated Glomerular Filt Rate 37 ml/min (>60); GFR (African American) 45 ML/MIN (>60); Glucose 92 mg/dl (74-100); Potassium 5.9 mmoL/L (3.5-5.1); Sodium 137 mmol/L (136-145)
== END ==
PROVIDERS: Visit Provider Urology
DX: E87.5 Hyperkalemia (principal)
CPT/HCPCS: 36415; 80048

== ENCOUNTER → 2019-06-27 11:00 | Outpatient (CLI) | payer MEDICARE, SELFPAY ==
[2019-06-27 12:14] LABS: Chloride 106 mmol/L (98-107); Potassium 4.4 mmoL/L (3.5-5.1); Sodium 137 mmol/L (136-145)
[2019-06-27 12:17] LABS: Anion Gap 10.4 mEq/L (5-15); Blood Urea Nitrogen 25 mg/dl (7-17); Calcium 9.2 mg/dl (8.4-10.2); Carbon Dioxide 25 mmol/L (22.0-30.0); Estimated Glomerular Filt Rate 44 ml/min (>60); GFR (African American) 54 ML/MIN (>60); Glucose 108 mg/dl (74-100)
== END ==
PROVIDERS: Visit Provider Urology
DX: E78.5 Hyperlipidemia, unspecified (principal); E87.5 Hyperkalemia; I10 Essential (primary) hypertension; I11.9 Hypertensive heart disease without heart failure; I25.10 Atherosclerotic heart disease of native coronary artery without angina pectoris
CPT/HCPCS: 36415; 80048

== ENCOUNTER → 2019-09-06 12:17 | Outpatient (CLI) | payer MEDICARE, SELFPAY ==
[2019-09-06 13:16] LABS: Anion Gap 10.8 mEq/L (5-15); Blood Urea Nitrogen 31 mg/dl (7-17); Calcium 9.8 mg/dl (8.4-10.2); Carbon Dioxide 34 mmol/L (22.0-30.0); Chloride 99 mmol/L (98-107); Estimated Glomerular Filt Rate 44 ml/min (>60); GFR (African American) 54 ML/MIN (>60); Glucose 110 mg/dl (74-100); Potassium 4.8 mmoL/L (3.5-5.1); Sodium 139 mmol/L (136-145)
== END ==
PROVIDERS: Visit Provider Physician Assistant
DX: I25.10 Atherosclerotic heart disease of native coronary artery without angina pectoris; E78.5 Hyperlipidemia, unspecified; I11.9 Hypertensive heart disease without heart failure
CPT/HCPCS: 36415; 80048

== ENCOUNTER → 2019-10-06 09:31 | Outpatient (CLI) | payer MEDICARE, SELFPAY ==
[2019-10-06 13:09] LABS: Coronavirus 19 IgG Antibody Negative (Negative); Coronavirus 19 IgM Antibody Negative (Negative)
== END ==
PROVIDERS: Visit Provider Internal Medicine Gastroenterology
DX: Z01.818 Encounter for other preprocedural examination (principal)
CPT/HCPCS: 36415; 86328

== ENCOUNTER 2019-10-09 11:06 | Day surgery (SDC) | payer MEDICARE, SELFPAY ==
[2019-10-03 17:02] VITALS: BMI 21.5
[2019-10-09] VITALS (7 sets, daily range): BP systolic 100–143; BP diastolic 53–88; PULSE 56–70; RESP 12–18; TEMP 36.3–36.4; O2SAT 96–100
--- NOTE | 2019-10-09 12:16 | P.PN_ITS ---
[facility] Anesthesia Checklist - Patient Identification Patient Identification: Arm Band - Structural Data Admitted From: Home Planned Operative Procedure/s: colonoscopy Consent for Planned Operative Procedure(s) Verified: Yes Verified Documents: Surgical Consent, History and Physical - NPO Status Verified Time NPO: 00:00 - Additional verifications Anesthesia Reactions: No - Airway Assessment C-Spine Mobility Assessed: Yes (mp2) TMJ Mobility Assessed: Yes Dentition: Good Dentition - Neurological Assessment Level of Consciousness: Awake, Alert - Anesthesia Plan Anesthesia Risk discussed: Yes Anesthesia Plan: Verified ASA Class: III Anesthesia Type: MAC [facility] History I have reviewed the patient's past medical history: Yes Medical History: Reports:: Asthma, Coronary Artery Disease, Gastroesophageal Reflux Disease(GERD), Hyperlipidemia, Hypertension Denies:: Cancer, Diabetes Mellitus Type 1, Diabetes Mellitus Type 2, Internal Pacemaker, MRSA, Seizures *Have you ever received a pneumonia vaccine?: No *Have you received a flu vaccine this season?: Yes Other Medical History: Reports: Arthritis, Cataracts Anesthesia experience/problems:: nac Laterality Cases: Left: ACL Repair, Total Hip Replacement, Bilateral: Cataract Other Surgeries: Yes: Cardiac Catheterization, Colonoscopy, Coronary Stent, Sinus Surgery, Skin Cancer Excision, Tubal Ligation, Other (C-stent). No: Pacemaker Amputation: No Fractures: No - *Social History Smoking Status: Never smoker Alcohol Intake: never Alcohol Intake Frequency:: a few times a month Substance Use Type: denies use *Occupational Status:: other Housing: house Household Members: spouse *Travel in the last 8 weeks: None Family Hx:: Coronary Artery Disease, Heart Attack
--- NOTE | 2019-10-09 12:35 | P.PCN_ITS ---
[facility] Procedure Note Procedure Note:: Colonoscopy Procedure Report: Colonoscopy with cold snare polypectomy Endoscopist: Tanvir Villaseñor II, MD Referring physician: Ciaran Stubbs MD Date of Procedure: October 09, 2019 Equipment: Olympus 180 variable stiffness pediatric colonoscope Sedation: MAC sedation Indication: Mrs. Espinal is a 68-year-old female who is here for routine screening/surveillance colonoscopy. She did have a colonoscopy in October 2011 (Dr. Jamey Damon) which was normal. She does have some chronic constipation. She does state that her maternal aunt had colon cancer in her 80s. The patient does have rare hemorrhoidal bleeding. She reports no abdominal pain, weight loss or change in bowel habits. Procedure: Prior to the procedure, a history and physical exam was performed, and patient's medications and allergies were reviewed. The risks, benefits and alternatives of the sedation and procedure were discussed with the patient. All questions were answered and informed consent was obtained. The patient was brought to the procedure room. Patient identification and proposed procedure were verified by the physician and the nurse. The patient was placed in a left lateral decubitus position and the scope was passed under direct vision. Throughout the procedure, the patient's blood pressure, pulse, and oxygen saturations were monitored continuously. The colonoscopy was accomplished without difficulty. The patient tolerated the procedure well. Findings: On digital rectal examination there was normal rectal tone. There were no external hemorrhoids. The colonoscope was introduced through the anal canal to the rectum and advanced to the cecum. The ileocecal valve and appendiceal orifice were identified. The scope was advanced a short distance into the ileum which appeared grossly normal. The scope was then withdrawn into the colon. The cecum was normal. There were 2 polyps in the ascending colon (3 and 8 mm) and both were removed via cold snare polypectomy. There were scattered diverticuli throughout the descending and sigmoid colon (LEFT colon). The rectum itself was normal. Upon retroflexion within the rectum there were grade 1-2 internal hemorrhoids. The preparation was excellent throughout with Beacon Preparation Score of 9. The cecal time was 11 minutes. Impression: 1. Colonic polyps x2 2. Left-sided diverticulosis 3. Grade 1-2 internal hemorrhoids Plan: I will follow up the polyp pathology and recommend repeat colonoscopy again in 5-7 years based upon the polyp histology and patient's family history. I would encourage a fiber bowel regimen versus bowel habit training therapy with Linzess or trulance on a long-term daily maintenance basis.
== END 2019-10-09 13:47 | disposition home or self-care (01) ==
LOC: OUTP 11:08
PROVIDERS: PCP Family Medicine; Visit Provider Internal Medicine Gastroenterology
PROC: 0DJD8ZZ Inspection of Lower Intestinal Tract, Via Natural or Artificial Opening Endoscopic (ICD-10-PCS; CPT 45378; principal; 2019-10-09 12:00)
DX: Z12.11 Encounter for screening for malignant neoplasm of colon (principal); K63.5 Polyp of colon; K57.30 Diverticulosis of large intestine without perforation or abscess without bleeding; K64.0 First degree hemorrhoids; J45.909 Unspecified asthma, uncomplicated; I25.10 Atherosclerotic heart disease of native coronary artery without angina pectoris; K21.9 Gastro-esophageal reflux disease without esophagitis; I10 Essential (primary) hypertension; E78.5 Hyperlipidemia, unspecified; Z87.39 Personal history of other diseases of the musculoskeletal system and connective tissue; Z88.0 Allergy status to penicillin; Z79.899 Other long term (current) drug therapy
CPT/HCPCS: 45385; 88305

== ENCOUNTER → 2019-10-17 13:05 | Outpatient (CLI) | payer MEDICARE, SELFPAY ==
[2019-10-17 14:15] LABS: Blood Urea Nitrogen 22 mg/dl (7-17); Estimated Glomerular Filt Rate 55 ml/min (>60); GFR (African American) 66 ML/MIN (>60)
== END ==
PROVIDERS: Visit Provider Physician Assistant
DX: Z01.818 Encounter for other preprocedural examination (principal)
CPT/HCPCS: 36415; 82565; 84520

== ENCOUNTER → 2019-10-19 13:25 | Outpatient (CLI) | payer MEDICARE, SELFPAY ==
--- NOTE | 2019-10-19 13:25 | CT_ITS ---
PROCEDURE: CT CHEST WO/W CON CLINCAL INDICATION: chest pain Chest tightness and pain, history of asthma COMPARISON: No exams were available for comparison TECHNIQUE: IV Contrast: 75ml Optiray 350 Axial images obtained with sagittal and coronal reformats. All CT scans at the facility use one or more dose reduction, viz: automated exposure control, ma/kV adjustment per patient size (including targeted exams where dose is matched to indication, i.e. head), or iterative reconstruction technique. FINDINGS: HEART AND MEDIASTINAL STRUCTURES: Unenhanced images demonstrates coronary artery calcification and/or stent noted. No mediastinal or hilar mass or adenopathy. No evidence of aortic aneurysm or dissection. No evidence of central pulmonary embolus. LUNGS AND PLEURAL SPACES: There is some minimal atelectatic or fibrotic change in the right middle lobe and left lower lobe posteriorly. A 3 mm noncalcified nodules present in the left lower lobe posteriorly. There is a 7 mm noncalcified nodule in the lingula and a calcified nodule in the left lower lobe.. BONY STRUCTURES: No acute bony abnormalities apparent. UPPER ABDOMEN: Unremarkable. ADDITIONAL FINDINGS: No other significant abnormalities. IMPRESSION: 1. The 3 mm noncalcified nodule left lower lobe posteriorly and a 7 mm noncalcified nodule in the lingula. Recommend six-month follow-up. 2. Other nonacute findings as described above. Dictated by: Gary Carias MD 10/20/2019 12:47 Electronically signed by Gary Carias MD in [facility] 10/20/2019 12:47
== END ==
PROVIDERS: PCP Family Medicine; Visit Provider Physician Assistant
DX: I10 Essential (primary) hypertension; I25.118 Atherosclerotic heart disease of native coronary artery with other forms of angina pectoris; K21.9 Gastro-esophageal reflux disease without esophagitis; E78.49 Other hyperlipidemia
CPT/HCPCS: 71270; Q9967

== ENCOUNTER → 2019-11-20 12:35 | Outpatient (CLI) | payer MEDICARE, SELFPAY ==
--- NOTE | 2019-11-20 12:38 | US_ITS ---
PROCEDURE: US BREAST RT COMPLETE CLINICAL INDICATION: ABN US OF BREAST Follow-up complicated cyst COMPARISON: US BREASTRT US breast RT complete from 03/25/2018 US US BREAST RT COMPLETE from 05/18/2019 FINDINGS: 12 o'clock near the nipple there is a 5 mm hypoechoic nodule. Previously this appeared more hypoechoic than on today's exam however, this could be technical in nature. This the has a similar appearance when compared to 03/25/2018. A complicated cyst is present at 6 o'clock at 8 mm not significantly changed. There are small nodes in the axilla. IMPRESSION: Overall no significant change in the complicated cyst at 6 o'clock. Hypoechoic nodule at 12 o'clock at 5 mm probably unchanged considering difference in technique. Consider continued six-month follow-up. BI-RADS category 3 probably benign. Recommend six-month sonographic follow-up. At that time the patient will be due for bilateral mammogram as well Dictated by: Gary Carias MD 11/27/2019 12:59 Gary Carias MD in [facility] 11/27/2019 12:59
== END ==
PROVIDERS: PCP Family Medicine; Visit Provider Family Medicine
DX: R92.8 Other abnormal and inconclusive findings on diagnostic imaging of breast (principal)
CPT/HCPCS: 76641

== ENCOUNTER → 2020-01-10 14:13 | Outpatient (CLI) | payer MEDICARE, SELFPAY ==
[2020-01-10 16:30] LABS: Anion Gap 15.3 mEq/L (5-15); Blood Urea Nitrogen 24 mg/dl (7-17); Calcium 9.8 mg/dl (8.4-10.2); Carbon Dioxide 28 mmol/L (22.0-30.0); Chloride 103 mmol/L (98-107); Estimated Glomerular Filt Rate 40 ml/min (>60); GFR (African American) 49 ML/MIN (>60); Glucose 99 mg/dl (74-100); Potassium 4.3 mmoL/L (3.5-5.1); Sodium 142 mmol/L (136-145)
== END ==
PROVIDERS: Visit Provider Urology
DX: I10 Essential (primary) hypertension; I25.118 Atherosclerotic heart disease of native coronary artery with other forms of angina pectoris; K21.9 Gastro-esophageal reflux disease without esophagitis; E78.49 Other hyperlipidemia
CPT/HCPCS: 36415; 80048

== ENCOUNTER → 2020-04-23 14:02 | Outpatient (CLI) | payer MEDICARE, SELFPAY ==
[2020-04-23 15:12] LABS: Blood Urea Nitrogen 21 mg/dl (7-17); Estimated Glomerular Filt Rate 40 ml/min (>60); GFR (African American) 49 ML/MIN (>60)
== END ==
PROVIDERS: Visit Provider Urology
DX: Z01.818 Encounter for other preprocedural examination (principal)
CPT/HCPCS: 36415; 82565; 84520

== ENCOUNTER → 2020-04-25 13:00 | Outpatient (CLI) | payer MEDICARE, SELFPAY ==
--- NOTE | 2020-04-25 13:00 | CT_ITS ---
PROCEDURE: CT CHEST WO/W CON CLINCAL INDICATION: surveillance Pulminary nodule follow up 75ml iso 370 Prior 10/19/19 COMPARISON: CT CT CHEST WO/W CON from 10/19/2019 TECHNIQUE: IV Contrast: 75ml Isovue 370 Axial images obtained with sagittal and coronal reformats. All CT scans at the facility use one or more dose reduction, viz: automated exposure control, ma/kV adjustment per patient size (including targeted exams where dose is matched to indication, i.e. head), or iterative reconstruction technique. FINDINGS: HEART AND MEDIASTINAL STRUCTURES: No mediastinal or hilar mass or adenopathy. No evidence of central pulmonary embolus, aortic aneurysm, or aortic dissection. Coronary artery stent is present and there are coronary artery calcifications noted LUNGS AND PLEURAL SPACES: New subpleural opacity is present in the right upper lobe anteriorly image 22 series 3 measuring 4 mm nonspecific. In the right lower lobe laterally there is a small subpleural opacity image 46 series 3 at 5 mm not readily apparent on the previous exam. In the right lower lobe anteriorly there is a new 5 mm opacity series 3, image 52. In the left lower lobe laterally there is a 4 mm noncalcified nodule not readily apparent on the previous study image 60 series 3. Previously there was a 7 mm nodule in the lingula which is not apparent on today's exam. A new 3 mm nodules present in the left lower lobe posteriorly image 57 series 3 BONY STRUCTURES: No acute bony abnormalities apparent. UPPER ABDOMEN: Unremarkable. ADDITIONAL FINDINGS: No other significant abnormalities. IMPRESSION: There are numerous small pulmonary nodules as described above which were not present on the previous exam. Previously there was a 7 mm nodule within the lingula which is no longer apparent. These nodules may be inflammatory or infectious. Cannot exclude the possibility of metastatic disease. Does the patient have history of primary cancer? Suggest short-term CT follow-up in 3 months. Dictated by: Gary Carias MD 04/26/2020 09:40 Gary Carias MD in [facility] 04/26/2020 09:40
== END ==
PROVIDERS: PCP Family Medicine; Visit Provider Urology
DX: E78.5 Hyperlipidemia, unspecified (principal); I10 Essential (primary) hypertension; I25.10 Atherosclerotic heart disease of native coronary artery without angina pectoris; I51.89 Other ill-defined heart diseases; K21.9 Gastro-esophageal reflux disease without esophagitis; R91.8 Other nonspecific abnormal finding of lung field
CPT/HCPCS: 71270; Q9967

== ENCOUNTER → 2020-07-08 15:52 | Outpatient (CLI) | payer MEDICARE, SELFPAY ==
[2020-07-08 17:28] LABS: Blood Urea Nitrogen 18 mg/dl (7-17); Estimated Glomerular Filt Rate 55 ml/min (>60); GFR (African American) 66 ML/MIN (>60)
== END ==
PROVIDERS: Visit Provider Family Medicine
DX: R91.8 Other nonspecific abnormal finding of lung field (principal)
CPT/HCPCS: 36415; 82565; 84520

== ENCOUNTER → 2020-07-11 13:11 | Outpatient (CLI) | payer MEDICARE, SELFPAY ==
--- NOTE | 2020-07-11 13:15 | CT_ITS ---
PROCEDURE: CT CHEST W CON CLINCAL INDICATION: LUNG NODULE Follow up No symptoms COMPARISON: CT CT CHEST WO/W CON from 04/25/2020 TECHNIQUE: IV Contrast: 75ml Isovue 370 Axial images obtained with sagittal and coronal reformats. All CT scans at the facility use one or more dose reduction, viz: automated exposure control, ma/kV adjustment per patient size (including targeted exams where dose is matched to indication, i.e. head), or iterative reconstruction technique. FINDINGS: HEART AND MEDIASTINAL STRUCTURES: Unremarkable. LUNGS AND PLEURAL SPACES: There are small bilateral pulmonary nodules. Some of the nodules have resolved but there are a few small new nodules suggesting that this may be an inflammatory/infectious process as opposed to a neoplastic process. For example, previously noted 4 mm nodule in the right upper lobe anteriorly is not apparent on today's study. A 6 mm nodular opacity is present in the right lower lobe posteriorly image 38 which is not readily apparent on the previous exam. There are other new small nodular densities as well. Minimal ground-glass opacity noted in the right lung base posteriorly. There is mild bronchial thickening. No effusions. A small cluster of semi solid nodules is noted in the right upper lobe laterally the largest of these measuring 5 mm. These nodules were not apparent on the previous exam. Previously there was a subpleural nodule in the right lower lobe laterally not apparent on today's study. BONY STRUCTURES: Osteosclerosis of the endplates noted at L1-L2. UPPER ABDOMEN: Stable hypodense nodule of the left kidney ADDITIONAL FINDINGS: There are few mildly prominent lymph nodes in the left axillary region with stranding of the fat in this area suggesting lymphadenitis which has developed in the interval. IMPRESSION: 1. Waxing and waning small pulmonary nodules as detailed above suggesting an underlying infectious/inflammatory process assuming the patient has not had interval treatment for neoplasm. Please correlate with clinical parameters. Consider follow-up exam in 6 months to confirm stability. 2. Mildly enlarged left axillary lymph nodes with stranding of the fat in the left axilla suggesting lymphadenitis. Recommend follow-up to confirm stability Dictated by: Gary Carias MD 07/14/2020 11:52 Gary Carias MD in [facility] 07/14/2020 11:52
== END ==
PROVIDERS: PCP Family Medicine; Visit Provider Family Medicine
DX: R91.8 Other nonspecific abnormal finding of lung field (principal)
CPT/HCPCS: 71260; Q9967

== ENCOUNTER → 2020-09-19 06:58 | Outpatient (CLI) | payer MEDICARE, SELFPAY ==
--- NOTE | 2020-09-19 07:06 | CA_ITS ---
APPROVED REPORT Exam: Pharmacologic Technologist: Rosanne Estevez, Ht: 5 ft 0 in Wt: 109 lbs BSA: 1.44 m2 HR: 53 bpm BP: 146/73 mmHg Rhythm: SINUS DENNY, NS ST ABNS Medical History Medical History: HTN, Hyperlipidemia Medications: Amlodipine,,,,, Aspirin,,,,, Losartan,,,,, Albuterol,,,,, MeLOXICAM,,,,, CloPIdogrel,,,,, Nitroglycerin,,,,, DiPHENHYDRAMINE,,,,, Ezetimbe,,,,, CHOLECALCIFEROL,,,,, CyclobenAPRINE,,,,, Calcium CaRBONATE,,,,, Allergies: ROSUVASTATIN, PENICILLIN, ATORVASTATIN, ISOSORBIDE, RANOLAZINE Cardiac Risk Factors: HTN, Hyperlipidemia, FHX of CAD Stress Test Details Test: LEXISCAN HR Resting HR: 58 bpm Max Heart Rate (APMHR): 149.973707 bpm Max HR Achieved: 95 bpm Target HR (85% APMHR): 126.191484 bpm % of APMHR: 63.76 Recovery HR: 80 bpm BP Resting BP: 146/73 mmHg Max BP: 149/77 mmHg Recovery BP: 138.0/71.0 mmHg ECG Resting ECG: SINUS DENNY, NS ST ABNS Clinical Exercise duration: 04:09 min Highest Stage Achieved: Stress ECG Conclusion PT HAD MILD SOA AND CHEST TIGHTNESS. MILD NAUSEA. URGE TO DEFICATE. OCC PVC AND PAC. EXAGGERATION OF BASELELINE ST ABNS. NON-DIAGNOSTIC LEXISCAN STRESS. MYOVIEW IMAGES REPORTED SEPARETLY. Electronically signed by : Adam Shepherd, 09/19/2020 11:01:21
--- NOTE | 2020-09-19 07:06 | NM_ITS ---
APPROVED REPORT Exam: Nuclear Stress Test Indication: Chest pain, SOB, Fatigue, CAD, HTN, High cholesterol, Family history Patient Location: Outpatient Stress Tech: Rosanne Estevez [place] Tech:Eli ClarkSUSAN RT(R)(N) Ht: 5 ft 1 in Wt: 109 lbs Bra Size: 32B HR: 53 bpm BP: 146/73 mmHg BSA: 1.46 m2 BMI: 20.5 History: Chest pain, SOB, Fatigue, CAD, HTN, High cholesterol, Family history Procedure: Patient received a 0.4 mg of intravenous Lexiscan, resting heart rate 53 bpm, resting blood pressure 146/73 mmHg, with Lexiscan maximum heart rate achived was 93 bpm which is Less than 85 % of the maximum predicted heart rate and blood pressure was 149/77 mmHg. Electrocardiogram Resting electrocardiogram showed sinus rhythm, with Lexiscan there is less than 1.[address] segment depression noted from the baseline EKG. The EKG portion of the Lexiscan is nondiagnostic. Cardiac Stress and Resting SPECT Images: Cardiac Stress and Resting SPECT images were obtained using technetium 99m Myoview 30.9 mCi stress and 10.52 mCi at rest. Gated SPECT for analysis of segmental wall motion and calculation of the ejection fraction also done, prone images were also obtained. Cardiac stress and resting SPECT images show uniform myocardial activity without segmental perfusion abnormality, computer derived ejection fraction is 61% with no regional wall motion abnormality, right ventricle is normal size and contractility. Conclusion: 1. The EKG portion of the Lexiscan is nondiagnostic. 2. No scintigraphic evidence of reversible ischemia seen, computer derived ejection fraction is 61% with no regional wall motion abnormality, right ventricle is normal size and contractility 3. Normal Lexiscan Myoview study. Electronically signed by : Adam Shepherd, 09/19/2020 15:01:37
== END ==
PROVIDERS: PCP Family Medicine; Visit Provider Nurse Practitioner Family
DX: E78.2 Mixed hyperlipidemia (principal); I11.9 Hypertensive heart disease without heart failure; I25.118 Atherosclerotic heart disease of native coronary artery with other forms of angina pectoris; R00.1 Bradycardia, unspecified; R06.02 Shortness of breath; R94.31 Abnormal electrocardiogram [ECG] [EKG]
CPT/HCPCS: 78452; 93017; A9502; J2785

== ENCOUNTER → 2020-09-26 12:14 | Outpatient (CLI) | payer MEDICARE, SELFPAY ==
--- NOTE | 2020-09-26 12:17 | XR_ITS ---
PROCEDURE: XR KNEE LT 3V CLINICAL INDICATION: ACUTE PAIN OF LT KNEE COMPARISON: CR [id number] XR knee LT 3V from 02/03/2018 FINDINGS: No fracture or dislocation. No lytic or blastic change. There is normal mineralization. There is minimal osteoarthritic change of the medial compartment Other findings:None. IMPRESSION: Minimal osteoarthritis otherwise negative Dictated by: Gary Carias MD 09/26/2020 13:14 Gary Carias MD in [facility] 09/26/2020 13:14
== END ==
PROVIDERS: PCP Family Medicine; Visit Provider Family Medicine
DX: M25.562 Pain in left knee (principal)
CPT/HCPCS: 73562

== ENCOUNTER → 2020-11-28 15:29 | Outpatient (CLI) | payer MEDICARE, SELFPAY ==
[2020-11-28 15:37] LABS: Adenovirus F 40/41, stool Not Detected (NotDetected); Astrovirus Not Detected (NotDetected); Campylobacter Not Detected (NotDetected); Clostridium Difficile A/B, PCR Not Detected (NotDetected); Cryptosporidium Not Detected (NotDetected); Cyclospora Cayetanesis Not Detected (NotDetected); Entamoeba histolytica Not Detected (NotDetected); Enteroaggregative E coli Not Detected (NotDetected); Enteropathogenic E coli Not Detected (NotDetected); Enterotoxigenic E coli Not Detected (NotDetected); Giardia lamblia Not Detected (NotDetected); Norovirus Not Detected (NotDetected); Plesimonas Shigalloides, PCR Not Detected (NotDetected); Rotavirus A Not Detected (NotDetected); Salmonella, PCR Not Detected (NotDetected); Sapovirus Not Detected (NotDetected); Shiga-like toxin E coli Not Detected (NotDetected); Shigella Enterovasive E coli Not Detected (NotDetected); Vibrio Cholerae Not Detected (NotDetected); Vibrio, PCR Not Detected (NotDetected); Yersinia Entercolitica, PCR Not Detected (NotDetected)
[2020-11-28 16:41] LABS: Occult Blood,Stool Negative (Negative)
== END ==
PROVIDERS: Visit Provider Family Medicine
DX: R19.7 Diarrhea, unspecified (principal)
CPT/HCPCS: 82272; 87177; 87205; 87506; G0328

== ENCOUNTER → 2020-12-18 14:21 | Outpatient (CLI) | payer MEDICARE, SELFPAY ==
[2020-12-18 15:59] LABS: Blood Urea Nitrogen 18 mg/dl (7-17); Estimated Glomerular Filt Rate 55 ml/min (>60); GFR (African American) 66 ML/MIN (>60)
== END ==
PROVIDERS: Visit Provider Nurse Practitioner Family
DX: R10.32 Left lower quadrant pain (principal); R10.31 Right lower quadrant pain; R19.7 Diarrhea, unspecified
CPT/HCPCS: 36415; 82565; 84520

== ENCOUNTER → 2020-12-19 10:05 | Outpatient (CLI) | payer MEDICARE, SELFPAY ==
--- NOTE | 2020-12-19 10:19 | CT_ITS ---
PROCEDURE: CT ABDOMEN PELVIS W CON CLINICAL INDICATION: CHANGE IN BOWEL HABITS,DIARRHEA,FECAL URGENCY,ABD PAIN COMPARISON: No exams were available for comparison TECHNIQUE: IV Contrast: 75ML Isovue 370 Oral Contrast None Axial images obtained with sagittal and coronal reformats. All CT scans at the facility use one or more dose reduction, viz: automated exposure control, ma/kV adjustment per patient size (including targeted exams where dose is matched to indication, i.e. head), or iterative reconstruction technique. FINDINGS: LOWER THORAX: No acute finding ABDOMEN & PELVIS: There are 2 small hepatic hypodensities in the left hepatic lobe at 4 and 8 mm and may represent hepatic cysts. The spleen, adrenal glands, and pancreas have an unremarkable appearance. Small bilateral renal cysts are present. No renal or ureteral calculi. No hydronephrosis or suspicious renal mass. No intestinal obstruction or free air. There is mild thickening of the descending and sigmoid colon nonspecific but could be seen with colitis. Severe artifact is present in the pelvis from bilateral hip prosthesis obscuring the urinary bladder and cecal region. The appendix is not clearly delineated possibly due to this artifact. Part of the uterus at the fundal area and the adnexal regions are obscured. Mild levoscoliosis of the upper lumbar spine with degenerative changes. IMPRESSION: 1. Mild thickening of the descending and sigmoid colon which could be due to nondistention or mild colitis. 2. Significant artifact in the pelvis obscuring underlying structures as described above. 3. Two small hypodensities of the liver which may be due to hepatic cysts along with bilateral renal cysts Dictated by: Gary Carias MD 12/20/2020 07:45 Gary Carias MD in [facility] 12/20/2020 07:45
== END ==
PROVIDERS: PCP Family Medicine; Visit Provider Nurse Practitioner Family
DX: R10.32 Left lower quadrant pain (principal); R10.31 Right lower quadrant pain; R19.7 Diarrhea, unspecified; R15.2 Fecal urgency; R15.9 Full incontinence of feces
CPT/HCPCS: 74177; Q9967

== ENCOUNTER → 2021-02-03 11:38 | Outpatient (CLI) | payer MEDICARE, SELFPAY ==
--- NOTE | 2021-02-03 12:01 | XR_ITS ---
PROCEDURE: XR CHEST PORTABLE CLINICAL HISTORY: Cough COMPARISON: CR CXR CHEST(2 VIEWS-NOT PORTABLE) from 03/16/[address] CHEST W CON from 07/11/2020 FINDINGS: The cardiomediastinal silhouette and pulmonary vascularity are within normal limits. Coronary artery stent is present. In the left lower lobe overlying the 6th rib anteriorly there is a 2 x 1 cm area of increased density. This could be due to summation artifact versus pulmonary nodule. Upright PA and lateral chest suggested for further evaluation. No acute bony abnormalities. IMPRESSION: 2 cm opacity overlying the left lower lobe possibly due to summation density versus developing pulmonary nodule or an area of focal infiltrate or atelectasis. Suggest follow-up PA and lateral chest for further evaluation. Dictated by: Gary Carias MD 02/03/2021 12:33 Gary Carias MD in [facility] 02/03/2021 12:33
[2021-02-03 12:04] LABS: Adenovirus,PCR Not Detected (NotDetected); Bordetella Pertussis Not Detected (NotDetected); Chlamydophila Pneumoniae, PCR Not Detected (NotDetected); Coronavirus 19, PCR Not Detected (NotDetected); Coronavirus 229E Not Detected (NotDetected); Coronavirus NL63 Not Detected (NotDetected); Coronavirus OC43 Not Detected (NotDetected); Coronovirus HKU1,PCR Not Detected (NotDetected); Human Metapneumovirus Not Detected (NotDetected); Influenza A, PCR Not Detected (NotDetected); Influenza AH1, 2009 Not Detected (NotDetected); Influenza AH1, PCR Not Detected (NotDetected); Influenza AH3,PCR Not Detected (NotDetected); Influenza B, PCR Not Detected (NotDetected); Mycoplasma Pneumoniae, PCR Not Detected (NotDetected); Parainfluenza 1, PCR Not Detected (NotDetected); Parainfluenza 2, PCR Not Detected (NotDetected); Parainfluenza 3, PCR Not Detected (NotDetected); Parainfluenza 4, PCR Not Detected (NotDetected); Respiratory Syncytial Virus Not Detected (NotDetected); Rhinovirus/Enterovirus Not Detected (NotDetected)
[2021-02-03 12:09] LABS: Basophils # 0.1 K/mm3 (0-0.2); Basophils % 1.1 % (0.1-2.0); Eosinophils # 0.2 K/mm3 (0.0-0.4); Eosinophils % 1.7 % (0.1-12.0); Hematocrit 37.3 % (37.0-47.0); Hemoglobin 12.2 g/dL (12.2-16.2); Lymphocytes # 3.4 K/mm3 (0.7-4.5); Lymphocytes % 38.8 % (10-50); Mean Corpuscular HGB Conc 32.7 g/dL (31.8-35.4); Mean Corpuscular Hemoglobin 29.7 pg (27.0-31.2); Mean Corpuscular Volume 90.7 fl (81-99); Mean Platelet Volume 8.6 fl (7.4-10.4); Monocytes # 0.6 K/mm3 (0.1-1.0); Neutrophils # 4.5 K/mm3 (1.8-7.8); Neutrophils % 51.4 % (37.0-80.0); Platelet Count 297 K/mm3 (142-424); Red Blood Count 4.11 M/mm3 (4.20-5.40); Red Cell Distribution Width 13.5 % (11.5-17.5); White Blood Count 8.7 K/mm3 (4.8-10.8)
== END ==
PROVIDERS: PCP Family Medicine; Visit Provider Family Medicine
DX: Z20.822 Contact with and (suspected) exposure to COVID-19 (principal)
CPT/HCPCS: 36415; 71045; 85025; 87581; 87632; 87798; C9803; U0003; U0005

== ENCOUNTER → 2021-06-30 15:48 | Outpatient (CLI) | payer MEDICARE, SELFPAY ==
--- NOTE | 2021-06-30 15:53 | MM_ITS ---
PROCEDURE INFORMATION: Exam: MG Bilateral Screening 3D Mammography Exam date and time: 06/30/2021 3:47 PM Age: 70 years old Clinical indication: Screening examination. Personal history of a skin cancer. No family history of breast cancer. TECHNIQUE: Imaging protocol: Bilateral Screening tomosynthesis and 2D mammography including computer-aided detection (CAD) when performed. COMPARISON: 1. MG MM DIG MAMM DX UNILAT RT CAD 05/18/2019 2:28 PM 2. MG MM DIG SCREENING MAMM BI W/CAD 04/27/2019 9:48 AM 3. MG DXBI MM Dig mamm BI DX w/CAD 03/25/2018 1:39 PM 4. MG SCBI MM Dig screening mamm BI w/CAD 02/23/2018 8:40 AM FINDINGS: MAMMOGRAPHY: Breast composition: The breast tissue is heterogeneously dense, which may obscure small masses. Mass: No suspicious mass. Architectural distortion: None. Calcifications: No suspicious calcifications. Asymmetric density: None. Skin thickening: None. Axillary adenopathy: None. IMPRESSION: No mammographic evidence of malignancy. Annual screening is recommended unless otherwise clinically indicated. Please note that ultrasound report from 11/27/2019 advises six-month follow-up for hypoechoic nodule in the right breast at 12 o'clock retroareolar , if this is not been already been performed, suggest adding right breast ultrasound, unless otherwise clinically indicated. ASSESSMENT: see comment BI-RADS Category 1: Negative
== END ==
PROVIDERS: PCP Family Medicine; Visit Provider Family Medicine
DX: Z12.31 Encounter for screening mammogram for malignant neoplasm of breast (principal)
CPT/HCPCS: 77063; 77067

== ENCOUNTER → 2022-02-17 12:34 | Outpatient (CLI) | payer MEDICARE, SELFPAY ==
--- NOTE | 2022-02-17 | US_ITS ---
FINAL REPORT CLINICAL HISTORY: HTN, CAD, hyperlipidemia, bilateral rest pain, bilateral claudication. FINDINGS: ANKLE-BRACHIAL PRESSURE INDICES Pressure indices are as follows: RIGHT LOWER EXTREMITY: Ankle-brachial pressure index: 1.1 Comments: Normal LEFT LOWER EXTREMITY: Ankle-brachial pressure index: 1.2 Comments: Normal CONCLUSION: No evidence of significant obstructive peripheral vascular disease of the lower extremities Reviewed, Interpreted and Dictated by Santiago Mckay III, MD Transcribed by Ashlee Herrera Authenticated and [facility]
== END ==
PROVIDERS: PCP Family Medicine; Visit Provider Nurse Practitioner
DX: I70.213 Atherosclerosis of native arteries of extremities with intermittent claudication, bilateral legs (principal)
CPT/HCPCS: 93923

== ENCOUNTER → 2022-05-07 15:12 | Outpatient (CLI) | payer MEDICARE, SELFPAY ==
--- NOTE | 2022-05-07 15:16 | XR_ITS ---
FINAL REPORT CLINICAL HISTORY: PLANTAR FASCITIS FINDINGS: RIGHT FOOT Three views of the right foot demonstrate no acute fracture or dislocation. The joint spaces are preserved. There is a small plantar calcaneal spur. The soft tissues are unremarkable. IMPRESSION: No acute bony abnormality. Small plantar calcaneal spur. Reviewed, Interpreted and Dictated by Molina Santamaria MD Transcribed by Ashlee Herrera Authenticated and . [facility]
== END ==
PROVIDERS: PCP Family Medicine; Visit Provider Family Medicine
DX: M79.671 Pain in right foot (principal); M72.2 Plantar fascial fibromatosis
CPT/HCPCS: 73630

== ENCOUNTER → 2022-09-08 06:25 | Outpatient (CLI) | payer MEDICARE, SELFPAY ==
--- NOTE | 2022-09-08 06:31 | NM_ITS ---
APPROVED REPORT Exam: Nuclear Stress Test Indication: CAD, 4 STENTS, DYSRHYTHMIA, HTN,M HYPERLIPIDEMIA, FM HX, C.P., SYNCOPE, FATIGUE Patient Location: Outpatient Stress Tech: [facility] Tech:Amada Amor, ARRT RT (R)(N)(M) Ht: 5 ft 1 in Wt: 107 lbs Bra Size: B HR: 54 bpm BP: 143/80 mmHg BSA: 1.45 m2 TID: 1.16 BMI: 20.2 History: CAD, 4 STENTS, DYSRHYTHMIA, HTN,M HYPERLIPIDEMIA, FM HX, C.P., SYNCOPE, FATIGUE Procedure: Patient received 0.4 mg of intravenous Lexiscan, resting heart rate 54 bpm, resting blood pressure 143/80 mmHg, with Lexiscan maximum heart rate achieved was 92 bpm which is % of the maximum predicted heart rate and blood pressure was 109/59 mmHg. With Lexiscan, patient denied any complaint of chest pain. Cardiac Stress and Resting SPECT Images: Cardiac Stress and Resting SPECT images were obtained using technetium 99m Myoview 31.2 mCi stress and 10.54 mCi at rest. Resting and stress imaging in both supine and prone positions demonstrate no evidence of reversible or fixed perfusion defects. Gated imaging demonstrates a normal LV global and regional systolic function. LVEF is calculated at 54% Conclusion: No evidence of reversible or fixed perfusion defects. Gated imaging demonstrates a normal LV global and regional systolic function. LVEF is calculated at 54% Electronically signed by : Emelina Lynne, 09/08/2022 18:10:57
--- NOTE | 2022-09-08 08:48 | CA_ITS ---
APPROVED REPORT Exam: Pharmacologic Technologist: Anni Crawley, Ht: 5 ft 0 in Wt: 106 lbs BSA: 1.43 m2 HR: 54 bpm BP: 143/80 mmHg Rhythm: NSR Medical History Medications: Amlodipine,,,,, Aspirin,,,,, Losartan,,,,, Lipitor,,,,, Albuterol,,,,, Calcium,,,,, MeLOXICAM,,,,, Vit D3,,,,, CloPIdogrel,,,,, BisOPROLOL,,,,, BenaDRYL,,,,, Cyclobenzaprine,,,,, Stress Test Details Test: LEXISCAN Reason for pharmacologic stress test: physical limitation. HR Resting HR: 57 bpm Max Heart Rate (APMHR): 147 bpm Max HR Achieved: 93 bpm Target HR (85% APMHR): 125 bpm % of APMHR: 63 Recovery HR: 76 bpm BP Resting BP: 143.0/80.0 mmHg Max BP: 143.0/80.0 mmHg Recovery BP: 117.0/57.0 mmHg ECG Resting ECG: Normal sinus rhythm, PVC, minimal ST depression in inferolateral leads, cannot R/O old septal UT Stress ECG: <[address] depression Arrhythmia: PVCs, 1 couplet Recovery ECG: Return to baseline Recovery Arrhythmia: PVCs Clinical Exercise duration: 04:00 min Highest Stage Achieved: Exercise capacity: n/a METs Stress ECG Conclusion Symptoms: Mild SOA, nausea, head discomfort. No CP. Arrhythmias/Ectopy: PVCs, One ventricular couplet. ST-T Changes: < 1mm exaggeration of baseline ST depression. Conclusion: Non-diagnostic Lexiscan stress due to baseline abnormalities. Myoview images reported separately. Test Summary REST . . . . . . . Resting REST 03:43 . . 57 . 143/ 80 . . Stage 1 01:00 . . 84 . . . . Stage 2 01:00 . . 91 . 109/ 59 . . Stage 3 01:00 . . 90 . 117/ 61 . . Stage 4 01:00 . . 86 . 126/ 64 . Stop exercise at 04:00 RECOVERY 01:00 . . 75 . 113/ 63 . . RECOVERY 02:00 . . 80 . 116/ 60 . . RECOVERY 03:00 . . 77 . 117/ 57 . . Electronically signed by : Emelina Lynne, 09/08/2022 18:08:26
== END ==
PROVIDERS: PCP Family Medicine; Visit Provider Nurse Practitioner Family
DX: E78.2 Mixed hyperlipidemia (principal); I11.9 Hypertensive heart disease without heart failure; I25.118 Atherosclerotic heart disease of native coronary artery with other forms of angina pectoris; J11.1 Influenza due to unidentified influenza virus with other respiratory manifestations; R00.1 Bradycardia, unspecified; R06.02 Shortness of breath
CPT/HCPCS: 78452; 93017; 93306; A9502; J2785

== ENCOUNTER 2023-10-01 13:30 | Outpatient (CLI) | payer MEDICARE, SELFPAY ==
--- NOTE | 2023-10-01 13:30 | CA_ITS ---
FINAL REPORT TECHNIQUE: Color Doppler, duplex Doppler and peacock scale sonography of the bilateral neck vasculature was performed. Velocities were measured in the carotid arteries. Stenosis evaluation based on velocity criteria. CLINICAL HISTORY: dizziness, CAD, HTN, SOB, HLD COMPARISON: None FINDINGS: The peak systolic velocity of the right common carotid artery is 105 cm/sec and internal carotid artery 100 cm/sec. The diastolic velocity in the internal carotid artery is 37 cm/sec. The ICA/CCA ratio is 1.12. Visually, a small amount of plaque is seen. These findings are consistent with less than 50% stenosis. The external carotid artery is patent. The right vertebral artery is patent with antegrade flow. The peak systolic velocity of the left common carotid artery is 99 cm/sec and internal carotid artery 111 cm/sec. The diastolic velocity in the internal carotid artery is 26 cm/sec. The ICA/CCA ratio is 1.13. Visually, a small amount of plaque is seen. These findings are consistent with less than 50% stenosis. The external carotid artery is patent. The left vertebral artery is patent with antegrade flow. IMPRESSION: No evidence of significant carotid stenosis. Bilateral patent vertebral arteries. If indicated, CTA or MRA could further evaluate. Reviewed, Interpreted and Dictated by Santiago Mckay III, MD Transcribed by Brenna Kaufman Authenticated and [facility]
== END 2023-10-01 23:59 | disposition home or self-care (01) ==
LOC: RT 13:30
PROVIDERS: PCP Family Medicine; Visit Provider Physician Assistant
DX: R42 Dizziness and giddiness (principal)
CPT/HCPCS: 93880

== ENCOUNTER 2025-01-31 14:23 | Outpatient (CLI) | payer MEDICARE, SELFPAY ==
--- OUTSIDE RECORDS SUMMARY | 2023-09-01 08:45 | XMS_ITS ---
Author Organization [facility] Address [address] [place] [id number] Care Team Providers Care Sterile Processing Tech Name Role Phone Ciaran Stubbs Primary Care Provider [phone] REASON FOR VISIT 6 mth Encounters Encounter Location Date Provider Diagnosis [facility] [address] [place] [id number] 09/01/2023 Ciaran Stubbs Plan Of Treatment No Information Progress Notes * Mary ESPINALDOB:1950 (74 yo F)Acc No.[id number]:09/01/2023 Progress Notes Patient: Mary OTERO Provider: Jen Stubbs M.D. :1950 A ge:72 Y S ex:Female Date:09/01/2023 Address:[address], [id number] Subjective: * Chief Complaints: * 1 . 6 mth. * Medical History: Objective: * Vitals: Assessment: Plan: * Treatment: * Images: Billing Information: * Visit Code: * Procedure Codes: * Electronic signature of Grecia Stubbs MD on 01/31/2025 at 02:28 PM EST Sign off status: Pending * Provider: Jen Stubbs M.D. Date: 0 09/01/2023 Generated for Printi ng/Faxing/eTransmitting on: 04/02/2024 02:28 PM EST
--- OUTSIDE RECORDS SUMMARY | 2023-10-22 08:45 | XMS_ITS ---
Author Organization [facility] Address [address] [place] [id number] Care Team Providers Care Investor Relations Specialist Name Role Phone Ciaran Stubbs Primary Care Provider Allergies Allergen (clinical drug ingredient) Drug/Non Drug Allergy documented on EMR Reaction Allergy Type Onset Date Status Penicillin rash Drug Allergy Active Results Component Value Reference Range Notes Glucose (In-House) Reviewed date:10/25/2023 09:34:29 AM Interpretation:140 Performing Lab: Notes/Report: 140 blood glucose 140 74 - 106 mg/dL Glycohemoglobin A1c (in hous e) Reviewed date:10/25/2023 09:34:29 AM Interpretation:5.3 Performing Lab: Notes/Report: 5.3 glycohemoglobin 5.3% 5 - 6.5 % P-Comprehensive Metabolic Pa esther (CMP) Reviewed date:10/25/2023 09:34:28 AM Interpretation:gluc 106, bun 27, Cr 1.05, gfr 55 Performing Lab: Notes/Report: Test performed by [facility] , [address], [place] [address] Kenny Sosa MD, Wafer Mounter CLIA: [id number] Sodium 140 135-145 mmol/L Potassium 4.3 3.5-5.3 mmol/L Chloride 101 97-108 mmol/L CO2 29 22-32 mmol/L Glucose 106 65-99 mg/dL BUN 27 8-23 mg/dL Creatinine 1.05 0.50-1.00 mg/dL Calcium 10.2 8.6-10.4 mg/dL eGFR by Creatinine 55 >59 mL/min/1.73m2 Protein 6.4 6.0-8.3 g/dL Albumin 4.5 3.5-5.3 g/dL Alkaline Phosphatase 76 35-121 IU/L ALT (SGPT) 20 <5-47 IU/L AST (SGOT) 22 <5-40 IU/L Bilirubin, Total 0.3 <0.2-1.2 mg/dL A/G Ratio 2.4 1.1-2.5 mg/dL P-Lipid Panel Reviewed date:10/25/2023 09:34:28 AM Interpretation:trigs 185 Performing Lab: Notes/Report: Test performed by [facility], [address] , [facility], [place] [address] Kenny Sosa MD, Wafer Mounter CLIA: [id number] Cholesterol 155 <200 mg/dL Triglycerides 185 <150 mg/dL HDL Cholesterol 62 >39 mg/dL Cholesterol / HDL Ratio 2.50 0.00-4.44 Ratio Non-HDL Cholesterol 93 <130 mg/dL LDL Cholesterol (Calculation) 56 <130 mg/dL LDL Cholesterol Levels* Less than 100 mg/dL Optimal 100 to 129 mg/dL Near Optimal/ Above Optimal 130 to 159 mg/dL Borderline High 160 to 189 mg/dL High 190 mg/dL and above Very High * Categories as recommended by the 2004 ATPIII guidelines LDL/HDL Ratio 0.9 <3.3 Ratio LDL Cholesterol Patient History Test Date: 08/31/2022 LDL Results: 68 Units: mg/dL % Change: - Test Date: 03/03/2023 LDL Results: 71 Units: mg/dL % Change: +4% Test Date: 10/22/2023 LDL Results: 56 Units: mg/dL % Change: -21% P-TSH reflex to FT4 Reviewed date:10/25/2023 09:34:29 AM Interpretation:Normal Performing Lab: Notes/Report: Test performed by [facility] [address] [place] [address] [address] , [place] [address] Kenny Sosa MD, Wafer Mounter CLIA: [id number] TSH reflex to FT4 1.05 0.43-5.25 mU/L P-Microalbumin/Creatinine, R andom Urine Sample Reviewed date:10/25/2023 09:34:29 AM Interpretation:Normal Performing Lab: Notes/Report: Test performed by [facility] [address] [place] [address] [address] C, [place] [address] Kenny Sosa MD, Wafer Mounter CLIA: [id number] Albumin/Creatinine Ratio, Urine 7 0-30 ug/m g Microalbumin, Urine, Random 0.3 Creatinine, Urine 46.1 P-Uric Acid Reviewed date:10/25/2023 09:34:29 AM Interpretation:Normal Performing Lab: Notes/Report: Test performed by [facility] [address] [place] [address] Dr[address], [place] [address] Kenny Sosa MD, Wafer Mounter CLIA: [id number] Uric Acid 5.9 2.4-7.0 mg/dL REASON FOR VISIT 6 Month Check Up Medications Medication SIG (Take, Route, Frequency, Duration) Notes Start Date End Date Status amLODIPine Besylate 10 MG 1 tab(s) orall y once daily Active Atorvastatin Calcium 20 MG Take 1 tablet by mouth once daily Active Albuterol Sulfate HFA 108 (90 Base) MCG/ACT INHALE 2 PUFFS BY MOUTH 4 TIMES DAILY NEEDED; Duration: 25 Active Ezetimibe 10 MG 1 tab(s) orally once a day Active Triamcinolone Acetonide 0.1 % 1 application Externally Twice a day 03/03/2023 Active Plavix 75 MG 1 tab(s) orally once a day Active Aspirin Adult Low Dose 81 MG 1 tab(s) orally once a day Active Nitroglycerin 0.4 MG 1 tab(s) sublingual ly every 5-15 minutes Active SM Vitamin D3 100 MCG (4000 UT) 1 tab(s) orally once a day 09/08/2010 Active Calcium Carbonate 1250 (500 Ca) MG 1 tab(s) chewed once a day Active Bisoprolol Fumarate 5 MG 1 tab(s) orally once a day Active Benadryl Allergy 25 MG 1 cap(s) orally e very 6 hours prn Active Losartan Potassium 100 MG 1 tab(s) orall y once a day Active Furosemide 20 MG 1 tab(s) orally once a day Active Vital Signs Weight 107.4 lbs 10/22/2023 Blood pressure systolic 120 mm Hg 10/22/19 24 Blood pressure diastolic 64 mm Hg 024 Heart Rate 68 /min 10/22/2023 Height 61 in 10/22/2023 BMI 20.29 kg/m2 10/22/2023 Encounters Encounter Location Date Provider Diagnosis [facility] [address] [place] [id number] 10/22/2023 Ciaran Stubbs Essential hypertensi on I10 ; IFG (impaired fasting glucose) R73.01 ; Pure hypercholesterolemia E78.00 and Hypertriglyceridemia E78.1 Assessments Encounter Date Diagnosis (ICD Code) Assessment Notes Treatment Notes Treatment Clinical Notes Section Notes 10/22/2023 Essential hypertensi on (ICD-10 - I10) 10/22/2023 IFG (impaired fastin g glucose) (ICD-10 - R73.01) 10/22/2023 Pure hypercholesterolemia (ICD-10 - E78.00) 10/22/2023 Hypertriglyceridemia (ICD-10 - E78.1) Plan Of Treatment Medication Medication Name Sig Start Date Stop Date Notes amLODIPine Besylate 10 MG 1 tab(s) orally once daily Atorvastatin Calcium 20 MG Take 1 tablet by mouth once daily Ezetimibe 10 MG 1 tab(s) orally once a day Bisoprolol Fumarate 5 MG 1 tab(s) orally once a day Losartan Potassium 100 MG 1 tab(s) orally once a day Furosemide 20 MG 1 tab(s) orally once a day Next Appt Details Follow Up: 6 Months, Reason: Progress Notes * Ramsey ESPINALjodiDOB:1950 (74 yo F)Acc No.[id number]:10/22/2023 Progress Notes Patient: Mary OTERO Provider: Jen Stubbs M.D. :1950 A ge:73 Y S ex:Female Date:10/22/2023 Address:[address] [place] [address], [place], [id number] Subjective: * Chief Complaints: * 1 . 6 Month Check Up. * HPI: C ardiology: 73 year old female presents with c/o Blood Pressure Elevated?Pt here for 6 mo f/u on hypertension, states she is doing well and does not have any concerns.? c/o Hyperlipidemia P t is not fasting today. * ROS: D ERMATOLOGY: no R inga. n o H filiberto. G ASTROENTEROLOGY: no N ausea. n o V omiting. U ROLOGY: no D ifficulty urinating. n o B lood in urine. * Medical History: C oronary Artery Disease, stent placed 2017, Hypertension, Hyperlipidemia, Asthma, Skin Cancer, ACL Tear 2000, LT Knee and Hip Osteoarthritis, Face, Leg, Arm Basal Cell Carinoma. * Surgical History: D eviated Septum , Tubal Ligation , LT Wrist Break Repair , LT Ankles Break Repair , LT ACL Replacement , Bilateral Cataract Repair , Skin Cancer Removal x 2 , Colonoscopy 2011, Cardiac Stent x1 04/20/2017, Cardiac Stent x1 - Aortic Artery 12/24/2017, Cardiac Stent x2 - Matthew 10/06/2018, RT Hip Replacement - Dr. Powell 11/29/2019, Cryotherapy on her Nose - Dermatology - Skin Cancer 01/2020. * Hospitalization/Major Diagno stic Procedure: F joan- [facility] [place] 05/12/2017, Stent Placement- [facility] 11/2017. * Family History: F ather: , of heart attack. M other: , heart, stomach problems, esophageal cancer. S iblings: brother . 1 brother(s) . . * Social History: C URRENT TOBACCO USE S moking Status: Patient does NOT smoke. C affeine: yes, frequency:4 cups. Past smoking status: no. Alcohol: Yes, Type: , Frequency: ,Years: , Determination:wine, rare. * Medications: T aking Ezetimibe 10 MG Tablet 1 tab(s) orally once a day , Taking Benadryl Allergy 25 MG Capsule 1 cap(s) orally every 6 hours prn , Taking SM Vitamin D3 100 MCG (4000 UT) Capsule 1 tab(s) orally once a day , Taking Calcium Carbonate 1250 (500 Ca) MG Tablet Chewable 1 tab(s) chewed once a day , Taking Plavix 75 MG Tablet 1 tab(s) orally once a day , Taking Aspirin Adult Low Dose 81 MG Tablet Delayed Release 1 tab(s) orally once a day , Taking Nitroglycerin 0.4 MG Tablet Sublingual 1 tab(s) sublingually every 5-15 minutes , Taking Albuterol Sulfate HFA 108 (90 Base) MCG/ACT Aerosol Solution INHALE 2 PUFFS BY MOUTH 4 TIMES DAILY NEEDED , Taking Triamcinolone Acetonide 0.1 % Cream 1 application Externally Twice a day , Taking Losartan Potassium 100 MG Tablet 1 tab(s) orally once a day , Taking Bisoprolol Fumarate 5 MG Tablet 1 tab(s) orally once a day , Taking amLODIPine Besylate 10 MG Tablet 1 tab(s) orally once daily , Taking Furosemide 20 MG Tablet 1 tab(s) orally once a day , Taking Atorvastatin Calcium 20 MG Tablet Take 1 tablet by mouth once daily , Medication List reviewed and reconciled with the patient * Allergies: P enicillin: rash. Objective: * Vitals: W t:107.4, Temp:97.9, BP:120/64, HR:68, Nurse:kk, Ht: 61, BMI:20.29. * Examination: C ardiology: General Appearance: p leasant, NAD. H EENT: u nremarkable. H eart sounds: R RR, normal S1, S2. L ungs: c lear, no rales or wheezes.?Extremities: n o leg edema. P eripheral pulses: 2 plus bilateral. ? Assessment: * Assessment: 1. E ssential hypertension - I10 (Primary) 2 . I FG (impaired fasting glucose) - R73.01 3 . P ure hypercholesterolemia - E78.00 4 . H ypertriglyceridemia - E78.1 Plan: * Treatment: Value Reference Range A /G Ratio 2.4 1.1-2.5 - mg/dL * A lbumin 4.5 3.5-5.3 - g/dL * A lkaline Phosphatase 76 35-121 - IU/L * A LT (SGPT) 20 <5-47 - IU/L * A ST (SGOT) 22 <5-40 - IU/L * B ilirubin, Total 0.3 <0.2-1.2 - mg/dL * B UN 27 H 8-23 - mg/dL * C alcium 10.2 8.6-10.4 - mg/dL * C hloride 101 97-108 - mmol/L * C O2 29 22-32 - mmol/L * C reatinine 1.05 H 0.50-1.00 - mg/dL * G lucose 106 H 65-99 - mg/dL * P otassium 4.3 3.5-5.3 - mmol/L * S odium 140 135-145 - mmol/L * P rotein 6.4 6.0-8.3 - g/dL * e GFR by Creatinine 55 L >59 - mL/min/1.73m2 * Kat Perry 10/25/2023 9:34: 21 AM >See phone encounter ?LAB: P-Microalbumin/Creatinine, Random Urine Sample (Collection Date & Time - 10/22/2023 01:10 PM)?Normal* Value Reference Range A lbumin/Creatinine Ratio, Urine 7 0-30 - ug /mg * C reatinine, Urine 46.1 - mg/dL * M icroalbumin, Urine, Random 0.3 - mg/dL * Kat Perry 10/25/2023 9:34: 21 AM >See phone encounter ?LAB: P-Uric Acid (Collection Date & Time - 10/22/2023 01:10 PM)?Normal* Value Reference Range U aiden Acid 5.9 2.4-7.0 - mg/dL * Kat Perry 10/25/2023 9:34: 21 AM >See phone encounter 2.?IFG (impaired fasting glucose)?LAB: Glucose (In-House) (Collection Date & Time - 10/22/2023)?140* Value Reference Range b lood glucose 140 74 - 106 mg/dL * Jeanette Manuel 10/22/2023 3:21:40 PM > Kat Perry 10/25/2023 9:34:21 AM >See phone encounter ?LAB: Glycohemoglobin A1c (in house) (Collection Date & Time - 10/22/2023)? 5.3* Value Reference Range g lycohemoglobin 5.3% 5 - 6.5 % * Jeanette Manuel 10/22/2023 3:21:55 PM > OrlandoKat 10/25/2023 9:34:21 AM >See phone encounter 3.?Pure hypercholesterolemia? Continue Ezetimibe Tablet, 10 MG, 1 tab(s), orally, once a day;?Continue Atorvastatin Calcium Tablet, 20 MG, Take 1 tablet by mouth once daily.?LAB: P-Comprehensive Metabolic Panel (CMP) (Collection Date & Time - 10/22/2023 01:10 PM)?gluc 106, bun 27, Cr 1.05, gfr 55* Value Reference Range A /G Ratio 2.4 1.1-2.5 - mg/dL * A lbumin 4.5 3.5-5.3 - g/dL * A lkaline Phosphatase 76 35-121 - IU/L * A LT (SGPT) 20 <5-47 - IU/L * A ST (SGOT) 22 <5-40 - IU/L * B ilirubin, Total 0.3 <0.2-1.2 - mg/dL * B UN 27 H 8-23 - mg/dL * C alcium 10.2 8.6-10.4 - mg/dL * C hloride 101 97-108 - mmol/L * C O2 29 22-32 - mmol/L * C reatinine 1.05 H 0.50-1.00 - mg/dL * G lucose 106 H 65-99 - mg/dL * P otassium 4.3 3.5-5.3 - mmol/L * S odium 140 135-145 - mmol/L * P rotein 6.4 6.0-8.3 - g/dL * e GFR by Creatinine 55 L >59 - mL/min/1.73m2 * Kat Perry 10/25/2023 9:34: 21 AM >See phone encounter ?LAB: P-Lipid Panel (Collection Date & Time - 10/22/2023 01:10 PM)?trigs 185 * Value Reference Range C holesterol / HDL Ratio 2.50 0.00-4.44 - Ratio * C holesterol 155 <200 - mg/dL * H DL Cholesterol 62 >39 - mg/dL * L DL Cholesterol (Calculation) 56 <130 - mg/d L * L DL/HDL Ratio 0.9 <3.3 - Ratio * N on-HDL Cholesterol 93 <130 - mg/dL * T riglycerides 185 H <150 - mg/dL * Kat Perry 10/25/2023 9:34: 21 AM >See phone encounter ?LAB: P-TSH reflex to FT4 (Collection Date & Time - 10/22/2023 01:10 PM)? Normal* Value Reference Range T SH reflex to FT4 1.05 0.43-5.25 - mU/L * Kat Perry 10/25/2023 9:34: 21 AM >See phone encounter 4.?Hypertriglyceridemia?LAB: P-Comprehensive Metabolic Panel (CMP) (Collection Date & Time - 10/22/2023 01:10 PM)?gluc 106, bun 27, Cr 1.05, gfr 55* Value Reference Range A /G Ratio 2.4 1.1-2.5 - mg/dL * A lbumin 4.5 3.5-5.3 - g/dL * A lkaline Phosphatase 76 35-121 - IU/L * A LT (SGPT) 20 <5-47 - IU/L * A ST (SGOT) 22 <5-40 - IU/L * B ilirubin, Total 0.3 <0.2-1.2 - mg/dL * B UN 27 H 8-23 - mg/dL * C alcium 10.2 8.6-10.4 - mg/dL * C hloride 101 97-108 - mmol/L * C O2 29 22-32 - mmol/L * C reatinine 1.05 H 0.50-1.00 - mg/dL * G lucose 106 H 65-99 - mg/dL * P otassium 4.3 3.5-5.3 - mmol/L * S odium 140 135-145 - mmol/L * P rotein 6.4 6.0-8.3 - g/dL * e GFR by Creatinine 55 L >59 - mL/min/1.73m2 * Kat Perry 10/25/2023 9:34: 21 AM >See phone encounter * Procedure Codes: G 2211 Complex e/[place], [address] GLUCOSE TEST, 16702 GLYCATED HEMOGLOBIN TEST, Modifiers: QW * Follow Up: 6 Months * Images: Billing Information: * Visit Code: 93775 Office Visit, Est Pt., Level 4. * Procedure Codes: G2211 Complex e/[place]. [address] GLUCOSE TEST. 99721 GLYCATED HEMOGLOBIN TEST. Modifiers: QW * Electronic signature of Grecia Stubbs MD on 01/31/2025 at 02:27 PM EST Sign off status: Pending * Provider: Jen Stubbs M.D. Date: 0 10/22/2023 Generated for Joe heaton/Margret/La on: 04/02/2024 02:27 PM EST History and Physical Notes * HPI (History of Present Illness) Category Sub-Category Detail Notes Category Not es Cardiology Blood Pressure Elevated Pt here for 6 mo f/u on hypertension, states she is doing well and does not have any concerns Hyperlipidemia Pt is not fasting to day Examination Category Sub-Category Detail Notes Category Not es Cardiology Lungs: clear, no rales or wheezes HEENT: unremarkable Heart sounds: RRR, normal S1, S2 Extremities: no leg edema Peripheral pulses: 2 plus bilateral General Appearance: pleasant, NAD
--- OUTSIDE RECORDS SUMMARY | 2023-12-03 09:00 | XMS_ITS ---
Author Organization [facility] Address [address] [place] [id number] Care Team Providers Care Physicist Astrophysics Name Role Phone Ciaran Stubbs Primary Care Provider [phone] Allergies Allergen (clinical drug ingredient) Drug/Non Drug Allergy documented on EMR Reaction Allergy Type Onset Date Status Penicillin rash Drug Allergy Active REASON FOR VISIT sciatic pain Medications Medication SIG (Take, Route, Frequency, Duration) Notes Start Date End Date Status Triamcinolone Acetonide 0.1 % 1 application Externally Twice a day 03/03/2023 Active Albuterol Sulfate HFA 108 (90 Base) MCG/ACT INHALE 2 PUFFS BY MOUTH 4 TIMES DAILY NEEDED; Duration: 25 Active Nitroglycerin 0.4 MG 1 tab(s) sublingual ly every 5-15 minutes Active Aspirin Adult Low Dose 81 MG 1 tab(s) orally once a day Active Plavix 75 MG 1 tab(s) orally once a day Active Benadryl Allergy 25 MG 1 cap(s) orally e very 6 hours prn Active Calcium Carbonate 1250 (500 Ca) MG 1 tab(s) chewed once a day Active Furosemide 20 MG 1 tab(s) orally once a day Active Gabapentin 300 MG 1 capsule Orally Two times a day; Duration: 30 day(s) 12/03/2023 Active SM Vitamin D3 100 MCG (4000 UT) 1 tab(s) orally once a day 09/08/2010 Active Bisoprolol Fumarate 5 MG 1 tab(s) orally once a day Active amLODIPine Besylate 10 MG 1 tab(s) orall y once daily Active Atorvastatin Calcium 20 MG Take 1 tablet by mouth once daily Active Ezetimibe 10 MG 1 tab(s) orally once a day Active Losartan Potassium 100 MG 1 tab(s) orall y once a day Active Problems Problem Type SNOMED Code ICD Code Onset Dates Problem Status W/U Status Risk Notes Problem Sciatica (57934882) Sciatica, unspecified laterality (M54.30) Active confirmed Vital Signs Weight 109 lbs 12/03/2023 Blood pressure systolic 140 mm Hg 12/03/19 24 Blood pressure diastolic 70 mm Hg 024 Heart Rate 60 /min 12/03/2023 Height 61 in 12/03/2023 BMI 20.59 kg/m2 12/03/2023 Encounters Encounter Location Date Provider Diagnosis [facility] [address] [place] [id number] 12/03/2023 Ciaran Stubbs Sciatica, unspecifie d laterality M54.30 Assessments Encounter Date Diagnosis (ICD Code) Assessment Notes Treatment Notes Treatment Clinical Notes Section Notes 12/03/2023 Sciatica, unspecified laterality (ICD-10 - M54.30) Current course of treatment reviewed, including pertinent labs and diagnostic imaging. Risks and benefits of the use of controlled substances discussed, including the risk of tolerance and drug dependence. Refer to [facility] Controlled Substance Agreement. Plan Of Treatment Medication Medication Name Sig Start Date Stop Date Notes Gabapentin 300 MG 1 capsule Orally Two times a day; Duration: 30 day(s) 12/03/2023 Treatment Notes Assessment Notes Sciatica, unspecified laterality Current course of treatment reviewed, including pertinent labs and diagnostic imaging. Risks and benefits of the use of controlled substances discussed, including the risk of tolerance and drug dependence. Refer to [facility] Controlled Substance Agreement. Next Appt Details Follow Up: via phone to repo rt progress, Reason: Progress Notes * Mary ESPINALDOB:1950 (74 yo F)Acc No.[id number]:12/03/2023 Progress Notes Patient: Mary OTERO Provider: Jen Stubbs M.D. :1950 A ge:73 Y S ex:Female Date:12/03/2023 Address:[facility] [address] [id number] Subjective: * Chief Complaints: * 1 . Sciatic pain. * HPI: Grey albarran back: 73 year old female presents with c/o radiation of pain P t complains of pain the starts in lt lower back and radiates down to lt foot for about a month. Pt states that she has had sciatic p ain in the past and the pain i s worsening . * ROS: D ERMATOLOGY: no R inga. [...] * Hospitalization/Major Diagno stic Procedure: [place] [facility] [place], [facility] 11/2017. * Family History: F ather: , of heart attack. M other: , heart, stomach problems, esophageal cancer. S iblings: brother . 1 brother(s) . . * Social History: C URRENT TOBACCO USE S moking Status: Patient does NOT smoke. C affeine: yes, frequency:4 cups. Past smoking status: no. Alcohol: Yes, Type: , Frequency: ,Years: , Determination:wine, rare. * Medications: T aking Benadryl Allergy 25 MG Capsule 1 cap(s) [...] application Externally Twice a day , Taking Ezetimibe 10 MG Tablet 1 tab(s) orally once a day , Taking Atorvastatin Calcium 20 MG Tablet Take 1 tablet by mouth once daily , Taking amLODIPine Besylate 10 MG Tablet 1 tab(s) orally once daily , Taking Bisoprolol Fumarate 5 MG Tablet 1 tab(s) orally once a day , Taking Losartan Potassium 100 MG Tablet 1 tab(s) orally once a day , Taking Furosemide 20 MG Tablet 1 tab(s) orally once a day , Medication List reviewed and reconciled with the patient * Allergies: P enicillin: rash. Objective: * Vitals: W t:109, Temp:98.1, BP:140/70, HR:60, Nurse:shayy, Ht: 61, BMI:20.59. * Examination: G eneral Examination: General Appearance: N AD. Assessment: * Assessment: 1. S ciatica, unspecified laterality - M54.30 (Primary) Plan: * Treatment: * Follow Up: v ia phone to report progress * Images: Billing Information: * Visit Code: 08451 Office Visit, Est Pt., Level 3. * Procedure Codes: * Electronic signature of Grecia Stubbs MD on 01/31/2025 at 02:27 PM EST Sign off status: Pending * Provider: Jen Stubbs M.D. Date: 0 12/03/2023 Generated for Joe heaton/Margret/La on: 1 04/02/2024 02:27 PM EST History and Physical Notes * HPI (History of Present Illness) Category Sub-Category Detail Notes Category Not es Lower back radiation of pain Pt complains o f pain the starts in lt lower back and radiates down to lt foot for about a month. Pt states that she has had sciatic pain in the past and the pain is worsening Examination Category Sub-Category Detail Notes Category Not es General Examination General Appearance: NAD
--- OUTSIDE RECORDS SUMMARY | 2024-04-21 10:00 | XMS_ITS ---
Author Organization [facility] Address [address] [place] [phone] Care Team Providers Care Palliative Senior Np Name Role Phone Ciaran Stubbs Primary Care Provider Allergies Allergen (clinical drug ingredient) Drug/Non Drug Allergy documented on EMR Reaction Allergy Type Onset Date Status Penicillin rash Drug Allergy Active Results Component Value Reference Range Notes Glucose (In-House) Reviewed date:04/24/2024 08:44:31 AM Interpretation:132 Performing Lab: Notes/Report: 132 blood glucose 132 74 - 106 mg/dL Glycohemoglobin A1c (in hous e) Reviewed date:04/24/2024 08:44:13 AM Interpretation:5.6 Performing Lab: Notes/Report: 5.6 glycohemoglobin 5.6% 5 - 6.5 % P-Basic Metabolic Panel (BMP ) Reviewed date:04/24/2024 08:32:10 AM Interpretation:gluc 105, bun 26, Cr 1.04, gfr 56 Performing Lab: Notes/Report: Test performed by [facility] [address] [place] [address] , [address], [place] [address] Kenny Ssoa MD, Psychological Tests Sales Agent CLIA: [id number] Sodium 143 135-145 mmol/L Potassium 4.2 3.5-5.3 mmol/L Chloride 104 97-108 mmol/L CO2 28 22-32 mmol/L Glucose 105 65-99 mg/dL BUN 26 8-23 mg/dL Creatinine 1.04 0.50-1.00 mg/dL Calcium 9.3 8.6-10.4 mg/dL eGFR by Creatinine 56 >59 mL/min/1.73m2 P-Lipid Panel Reviewed date:04/24/2024 08:32:10 AM Interpretation:trigs 225 Performing Lab: Notes/Report: Test performed by [facility] [address] [place] [address] , [address], [place] [address] Kenny Sosa MD, Psychological Tests Sales Agent CLIA: [id number] Cholesterol 168 <200 mg/dL Triglycerides 225 <150 mg/dL HDL Cholesterol 54 >39 mg/dL Cholesterol / HDL Ratio 3.11 0.00-4.44 Ratio Non-HDL Cholesterol 114 <130 mg/dL LDL Cholesterol (Calculation) 69 <130 mg/dL LDL Cholesterol Levels* Less than 100 mg/dL Optimal 100 to 129 mg/dL Near Optimal/ Above Optimal 130 to 159 mg/dL Borderline High 160 to 189 mg/dL High 190 mg/dL and above Very High * Categories as recommended by the 2004 ATPIII guidelines LDL/HDL Ratio 1.3 <3.3 Ratio LDL Cholesterol Patient History Test Date: 03/03/2023 LDL Results: 71 Units: mg/dL % Change: +4% Test Date: 10/22/2023 LDL Results: 56 Units: mg/dL % Change: -21% Test Date: 04/21/2024 LDL Results: 69 Units: mg/dL % Change: +23% REASON FOR VISIT 6 month f/u Medications Medication SIG (Take, Route, Frequency, Duration) Notes Start Date End Date Status Albuterol Sulfate HFA 108 (90 Base) MCG/ACT INHALE 2 PUFFS BY MOUTH 4 TIMES DAILY NEEDED; Duration: 25 Active Triamcinolone Acetonide 0.1 % 1 application Externally Twice a day 03/03/2023 Active Ezetimibe 10 MG 1 tab(s) orally once a day Active amLODIPine Besylate 10 MG 1 tab(s) orall y once daily Active Bisoprolol Fumarate 5 MG 1 tab(s) orally once a day Active Calcium Carbonate 1250 (500 Ca) MG 1 tab(s) chewed once a day Active Plavix 75 MG 1 tab(s) orally once a day Active Aspirin Adult Low Dose 81 MG 1 tab(s) orally once a day Active Nitroglycerin 0.4 MG 1 tab(s) sublingual ly every 5-15 minutes Active SM Vitamin D3 100 MCG (4000 UT) 1 tab(s) orally once a day 09/08/2010 Active Gabapentin 300 MG 2 capsule Orally Two times a day 12/03/2023 Active Atorvastatin Calcium 20 MG 1 tablet Oral ly Once a day; Duration: 90 days Active traZODone HCl 50 MG 1 or 2 tablet at bed time as needed Orally Once a day 04/21/2024 Active Benadryl Allergy 25 MG 1 cap(s) orally e very 6 hours prn Active Furosemide 20 MG 1 tab(s) orally once a day Active Losartan Potassium 100 MG 1 tab(s) orall y once a day Active Problems Problem Type SNOMED Code ICD Code Onset Dates Problem Status W/U Status Risk Notes Problem Primary insomnia (2533645) Primary insomnia (F51.01) Active confirmed Problem Sciatica (68133798) Lumbago with sciatica, right side (M54.41) Active confirmed Problem Chronic pain (81071583) Other chronic pain (G89.29) Active confirmed Vital Signs Weight 110.2 lbs 04/21/2024 Blood pressure systolic 124 mm Hg 04/21/19 25 Blood pressure diastolic 62 mm Hg 025 Heart Rate 64 /min 04/21/2024 Height 61 in 04/21/2024 BMI 20.82 kg/m2 04/21/2024 Encounters Encounter Location Date Provider Diagnosis [facility] [address] [place], [place] [phone] 04/21/2024 Ciaran Stubbs Primary insomnia F51 .01 ; Essential hypertension I10 ; IFG (impaired fasting glucose) R73.01 ; Renal insufficiency N28.9 ; Lumbago with sciatica, right side M54.41 and Other chronic pain G89.29 Assessments Encounter Date Diagnosis (ICD Code) Assessment Notes Treatment Notes Treatment Clinical Notes Section Notes 04/21/2024 Primary insomnia (ICD-10 - F51.01) 04/21/2024 Essential hypertension (ICD-10 - I10) 04/21/2024 IFG (impaired fasting glucose) (ICD-10 - R73.01) 04/21/2024 Renal insufficiency (ICD-10 - N28.9) 04/21/2024 Lumbago with sciatica, right side (ICD-10 - M54.41) 04/21/2024 Other chronic pain (ICD-10 - G89.29) Plan Of Treatment Medication Medication Name Sig Start Date Stop Date Notes traZODone HCl 50 MG 1 or 2 tablet at bed time as needed Orally Once a day 04/21/2024 Next Appt Details Follow Up: via phone to repo rt progress, 6 Months, Reason: Progress Notes * Mary ESPINALDOB:1950 (74 yo F)Acc No.[id number]:04/21/2024 Progress Notes Patient: Mary OTERO Provider: Jen Stubbs M.D. :1950 A ge:73 Y S ex:Female Date:04/21/2024 Address:[address], [place], [id number] Subjective: * Chief Complaints: * 1 . 6 month f/u. * HPI: C ardiology: 73 year old [...] * Hospitalization/Major Diagno stic Procedure: F joan- [facility] [place] 05/12/2017, Stent Placement- [facility] 11/2017. * Family History: F ather: , [...] tab(s) orally once a day , Taking Gabapentin 300 MG Capsule 2 capsule Orally Two times a day , Taking Atorvastatin Calcium 20 MG Tablet 1 tablet Orally Once a day , Medication List reviewed and reconciled with the patient * Allergies: P enicillin: rash. Objective: * Vitals: W t:110.2, Temp:97.9, BP:124/62, HR:64, Nurse:shayy, Ht: 61, BMI:20.82. * Examination: C ardiology: General Appearance: p leasant, NAD. H EENT: u nremarkable. H eart sounds: R RR, normal S1, S2. L ungs: c lear, no rales or wheezes.?Extremities: n o leg edema. P eripheral pulses: 2 plus bilateral. ? Assessment: * Assessment: 1. P rimary insomnia - F51.01 (Primary) 2 . E ssential hypertension - I10? 3. I FG (impaired fasting glucose) - R73.01 4 . R enal insufficiency - N28.9 5 . L umbago with sciatica, right side - M54.41 ?6. O ther chronic pain - G89.29 Plan: * Treatment: 2. E ssential hypertension L AB: P-Basic Metabolic Panel (BMP) (Collection Date & Time - 04/21/2024 02:16 PM) g juan c 105, bun 26, Cr 1.04, gfr 56 Value Reference Range B UN 26 H 8-23 - mg/dL * C alcium 9.3 8.6-10.4 - mg/dL * C hloride 104 97-108 - mmol/L * C O2 28 22-32 - mmol/L * C reatinine 1.04 H 0.50-1.00 - mg/dL * G lucose 105 H 65-99 - mg/dL * P otassium 4.2 3.5-5.3 - mmol/L * S odium 143 135-145 - mmol/L * e GFR by Creatinine 56 L >59 - mL/min/1.73m2 * Kat Perry 04/24/2024 8:32: 04 AM >See phone encounter ?LAB: P-Lipid Panel (Collection Date & Time - 04/21/2024 02:16 PM)?trigs 225 * Value Reference Range C holesterol / HDL Ratio 3.11 0.00-4.44 - Ratio * C holesterol 168 <200 - mg/dL * H DL Cholesterol 54 >39 - mg/dL * L DL Cholesterol (Calculation) 69 <130 - mg/d L * L DL/HDL Ratio 1.3 <3.3 - Ratio * N on-HDL Cholesterol 114 <130 - mg/dL * T riglycerides 225 H <150 - mg/dL * Kat Perry 04/24/2024 8:32: 04 AM >See phone encounter 3.?IFG (impaired fasting glucose)?LAB: Glucose (In-House) (Collection Date & Time - 04/24/2024)?132* Value Reference Range b od glucose 132 74 - 106 mg/dL * Jeanette Manuel 04/24/2024 8:43:13 AM >Kta Perry 04/24/2024 8:44:23 AM > , See phone encounter ?LAB: Glycohemoglobin A1c (in house) (Collection Date & Time - 04/24/2024)? 5.6* Value Reference Range g lycohemoglobin 5.6% 5 - 6.5 % * Jeanette Manuel 04/24/2024 8:43:34 AM >Kat Perry 04/24/2024 8:44:04 AM > , See phone encounter 4.?Renal insufficiency?LAB: P-Basic Metabolic Panel (BMP) (Collection Date & Time - 04/21/2024 02:16 PM)?gluc 105, bun 26, Cr 1.04, gfr 56* Value Reference Range B UN 26 H 8-23 - mg/dL * C alcium 9.3 8.6-10.4 - mg/dL * C hloride 104 97-108 - mmol/L * C O2 28 22-32 - mmol/L * C reatinine 1.04 H 0.50-1.00 - mg/dL * G lucose 105 H 65-99 - mg/dL * P otassium 4.2 3.5-5.3 - mmol/L * S odium 143 135-145 - mmol/L * e GFR by Creatinine 56 L >59 - mL/min/1.73m2 * Kat Perry 04/24/2024 8:32: 04 AM >See phone encounter * Procedure Codes: G 2211 Complex e/[place], [address] GLUCOSE TEST, 58888 GLYCATED HEMOGLOBIN TEST, Modifiers: QW * Follow Up: v ia phone to report progress, 6 Months * Images: Billing Information: * Visit Code: 31365 Office Visit, Est Pt., Level 4. * Procedure Codes: G2211 Complex e/[place]. [address] GLUCOSE TEST. 70954 GLYCATED HEMOGLOBIN TEST. Modifiers: QW * Electronic signature of Grecia Stubbs MD on 01/31/2025 at 02:28 PM EST Sign off status: Pending * Provider: Jen Stubbs M.D. Date: 0 04/21/2024 Generated for Joe heaton/Margret/eTransmitting on: 04/02/2024 02:28 PM EST History and Physical Notes * [...]
--- OUTSIDE RECORDS SUMMARY | 2025-01-31 14:27 | XMS_ITS | Encounter Summary ---
Author Organization [employer] ([place], [place], [place], [place], [place]) Address [address] [place] [id number] Care Team Providers Care Animal Technician Name Role Phone Unavailable Primary Care Provider Unavailabl e Encounter Details Date Type Department Care Team (Late st Contact Info) Description 11/30/2019 Transcribed Document [facility] Radiology [address] [place] [address] Provider, [facility] MD Joseph Social History Tobacco Use Types Packs/Day Years Used Date Smoking Tobacco: Never Assessed Comments Unknown Sex and Gender Information Value Date Recorded Sex Assigned at Not on file Legal Sex Female 5:45 PM CDT Gender Identity Not on file Sexual Orientation Not on file documented as of this encounter Miscellaneous Notes * Cerner Conversion Note - [facility] Joseph Richardson MD - 11/30/2019 1:[address] [facility] ([place], [place]) [facility] [place] [address] JAN ESPINAL :1950 Visit Time:11/29/2019 Your Visit Summary Your Care Team Admitting Physician - BRIAN ALVES MD-ORT Attending Physician - BRIAN ALVES MD-ORKareem Primary Care Physician - BOBY, NOT LISTED Referring Physician - BRIAN ALVES MD-ORT Your Diagnosis History of hip replacement, total Unilateral primary osteoarthritis, right hip, Unilateral primary osteoarthritis, right hip Discharge Vitals Heart Rate (Monitored) 65 Blood Pressure 118/49 What to do next Instructions From Your Care Team Diet after Discharge: Resume usual diet as tolerated Activity after Discharge: No strenuous activity Lifting Restrictions: No heavy lifting over 10 pounds Weight Bearing: Full weight bearing Driving after Discharge: Do not drive Showering/Bathing: May shower, No tub bathing, soaking or swimming, Cover site with GLAD [id number] while showering Notify Provider of: Foul smelling drainage from site, increasing redness, tenderness, and heat. Notify of fever greater than 101, pain that cannot be relived by pain medication, excess drainage after 7 days, and/or if incision begins to open. Wound/Incision Care after Discharge: Keep operative site/wound site clean and dry, DO NOT change dressing; may reinforce it as needed, Leave Aquacel dressing in place for 7-10 days and then remove and leave site open to air. Instructions: Wear PATRICIA hose as often as possible and as tolerated for 6 weeks, continue daily exercises per therapy, continue gait training, Wear ice therapy (30 min on and 30 min off) Community Services: [facility] Services: [phone] Medical Equipment for Home Use: Discharge Follow Up Instructions: Follow-up Dr. Alvse 3 wks ([phone]) Follow Up Instructions: Continue PATRICIA hose for 6 weeks Follow Up Instructions: Leave Aquacel dressing in place x 7-10d, then open to air. Follow-Up Appointments Follow Up with ROBBIN CORRALES PA-ORKareem When 12/20/2019 03:15 PM EDT Where: [address] [place], [place] [address], [place] [address]- Medications What How Much When Instructions Next Dose acetaminophen-oxyCODONE (Percocet 5/ 325 oral tablet) 1 Tablet(s) Oral Every 4 Hours as needed for Pain (Severe 7-10) not to exceed 6 tablets/ day Printed Prescription docusate (Colace 100 mg oral capsule) 1 Capsule(s) Oral Two Times A Day as needed for for constipation Duration: 30 Day(s) Printed Prescription ferrous gluconate (ferrous gluconate 324 mg (37.5 mg elemental iron) oral tablet) 1 Tablet(s) Oral Every Day Printed Prescription Wednesday12/01/19 9:00 AM meloxicam (meloxicam 15 mg oral tablet) 1 Tablet(s) Oral Every Day Printed Prescription Wednesday12/01/19 9:00 AM albuterol (albuterol 90 mcg/ inh inhalation powder) 1 Puff(s) Inhalation Every 4 Hours as needed for as needed for shortness of breath or wheezing amLODIPine 10 Milligram(s) Oral Every Day Wednesday12/01/19 9:00 AM arginine (L-Arginine 500 mg oral capsule) 1 Capsule(s) Oral Wednesday12/05/19 9:00 AM aspirin 81 Milligram(s) Oral Every Day Wednesday12/01/19 9:00 AM bisoprolol 5 Milligram(s) Oral Every Day Wednesday12/01/19 9:00 AM calcium citrate 300mg/150mg Oral Every Day Wednesday12/01/19 9:00 AM cholecalciferol (Vitamin D3) 10 Microgram(s) Oral Every Day Wednesday12/01/19 9:00 AM clopidogrel (Plavix) 75 Milligram(s) Oral Every Day Wednesday12/01/19 9:00 AM cranberry (Cranberry) 500 Milligram(s) Oral Every Day Wednesday12/01/19 9:00 AM ezetimibe 10 Milligram(s) Oral At Bedtime 11/30/19 9:00 PM furosemide (Lasix) 5 Milligram(s) Oral Every Day Wednesday12/01/19 9:00 AM losartan 50 Milligram(s) Oral Every Day Wednesday12/01/19 9:00 AM multivitamin 1 gummy Chew Every Day Wednesday12/01/19 9:00 AM nitroglycerin 0.4 Milligram(s) SubLINgual Every 5 minutes as needed for as needed for chest pain Non Formulary (dandelion root) 515 Milligram(s) Oral Wednesday12/05/19 9:00 AM Non Formulary (mangosteen) 500 Milligram(s) Oral Every Day Wednesday12/01/19 9:00 AM Non Formulary (Non Formulary med) 20/1 mg Oral Every Day Wednesday12/01/19 9:00 AM Non Formulary (Non Formulary med) 450 Milligram(s) Oral Wednesday12/05/19 9:00 AM Non Formulary (Non Formulary med) 425 Milligram(s) Oral Every Day Wednesday12/01/19 9:00 AM Non Formulary (Non Formulary med) 750 Milligram(s) Oral Every Day Wednesday12/01/19 9:00 AM Non Formulary (Non Formulary med) 500 Milligram(s) Oral Every Day Wednesday12/01/19 9:00 AM Take your medications faithfully. Do NOT skip medication. Do NOT stop taking medications without the direction of a physician. Carry a list of your medications with you at all times, and take this medication list with you to your first follow up visit. Report any side effects. Avoid herbal remedies unless discussed with your physician. As part of your treatment plan, your physician may have prescribed a limited course of a controlled substance. This medication may be given to help people with moderate or severe pain or for other medical conditions, but there are risks involved with treatment. Common side effects may include nausea, constipation, drowsiness, sweating, itching, dry mouth, and rash. More serious side effects may include cognitive and motor impairment, like problems with thinking, concentrating, alertness, and movement (e.g. slowed reflexes), and driving and operating heavy machinery can be dangerous. It is important for you to talk to your physician if you have these side effects or questions. These controlled substances can produce physical dependence and be habit-forming if taken for an extended period of time, which means that the body has gotten used to them and may experience withdrawal symptoms if they are abruptly stopped. Withdrawal symptoms can include runny nose, sweating, goose bumps, diarrhea, abdominal cramping, rapid heartbeat, difficulty sleeping, and nervousness. Please dispose of unused and medications per your retail pharmacy guidance. Allergies Enviromental Ranolazine ER atorvastatin isosorbide penicillin (Rash) rosuvastatin (Muscle weakness) Immunizations This Visit No Immunizations Found Education Materials CALL FIRST! Unless you are experiencing life-threatening issues, call your surgeon???s office or nurse navigator first, before going to the Emergency Department. Call your surgeon or nurse navigator if: E Your incision has increased swelling that does not get better with time, rest, and propping up your leg E Your incision has a foul smell or begins to open E You have a large amount of bleeding from incision E Your incision gets red, warm or increased drainage after 2 days E You have a fever over 101 degrees for more than 24 hours E You have increased swelling, redness, warmth or pain in your calf E You fall, but don???t have an obvious injury E You have questions or cause for concern regarding your total joint replacement Call 922 if: E You have sudden chest pain or shortness of breath E You fall and cannot get up E Life-threatening signs or symptoms E Stroke signs and symptoms: Facial droop, uneven smile, arm numbness, arm weakness, slurred speech, difficulty speaking or understanding If you are a patient of Dr. Alves or Dr. Ortega, call [phone] If you are a patient of Dr. Nolasco, call [phone] Nurse Navigator: Tamera Pereyra Office: [phone]; ; available during regular business hours Discharge Instructions for Anterior Total Hip Replacement Your Hip Incision: No swimming, soaking or bathing in a tub until cleared by the surgeon. If you have an Aquacel (light brown) dressing: Keep your dressing in place for 7-10 days. This type of dressing is water resistant. Please check the edges of the dressing, if they are intact, you may shower until the dressing is removed. Either the home health Physical Therapist or Nurse will remove the dressing after 7- 10 days, or your surgeon will remove it at your follow-up appointment. Then your incision may be open to air. Ideally, sponge bathe from the time the dressing is removed until your follow-up appointment. If you have a dry, white dressing: Change daily as needed. Wash your hands before and after changing the dressing. Activity: E You may put weight on your leg when you walk, unless your surgeon tells you not differently. Use your walker until the therapist or surgeon say you do not need it anymore. Continue your exercises from physical therapy. E Stay active, getting up every 1-2 hours, walk short distances, and increase how far you walk a little each week. No driving until cleared by your surgeon. E If your surgeon has ordered support hose, continue to wear them for 6 weeks in order to prevent blood clots. Remove them 1-2 times per day for about 30 minutes-1 hour. Check your skin for red or open areas under stockings. Thigh-high support hose can be bought online and at many pharmacies, be sure that compression is 15-20mmHg. E For swelling, prop up your leg above your heart. Apply cold therapy, 30 minutes on 30 minutes off with cloth or clothing between cold wrap and skin. General Instructions: E Increase fiber and protein intake. Drink 8-10 glasses of water a day and take stool softeners while you are on pain medication, since they cause constipation. If you do not have a bowel movement in 3-4 days after your surgery, try an over the counter laxative, such as milk of magnesia, miralax, dulcolax tablet or suppository, or fleets enema. If you do not have success after this, contact your home health nurse or surgeon office. E Continue using your incentive spirometer to keep fever and lung infection away. Aim for 10 breaths every hour while you are awake. E Take pain medicine as needed, especially before therapy. E Let your doctors and dentist know you have a prosthetic hip. They may need to give you an antibiotic before a procedure. Call Your Surgeon: Infection: Your hip has increased swelling that does not get better with time, propping up your leg and with rest. Your incision has a foul smell or your incision begins to open. Your incision gets red, is warm or has increased drainage after 2 days. You have a fever over 101 degrees for more than 24 hours. A Blood Clot: You have increased swelling, redness, warmth or pain in your calf. A Fall: E You fall down, but don???t have an obvious injury. Call 911: Sudden shortness of breath and/or chest pain You fall down and cannot get up Stroke signs and symptoms: Facial droop, uneven smile, arm numbness, arm weakness, slurred speech, difficulty speaking or understanding Last Revised May 2016 Emergency Awareness and Preventative Care STROKE is an EMERGENCY Every Minute Counts Act FAST and Check for these signs: FACE Does the face look uneven? ARM Does one arm drift down? SPEECH Does their speech sound strange? TIME Call at any sign of stroke Stroke Risk Factors Atrial Fibrillation (irregular heartbeat) Diabetes Family history of stroke Heart Disease Heavy alcohol use High Blood Pressure High Cholesterol Physical inactivity and obesity Smoking Cigarette Smoking The facts are clear, cigarette smoking will shorten your life. Smoking can cause many illnesses along the way. As a healthcare provider, we recommend that you stop smoking. Assistance with quitting is available by contacting 8-047-WNLE-NOW. This is a free resource providing counseling, support, and referral. Or you may contact your personal physician. National Suicide Prevention Lifeline: The National Suicide Prevention Lifeline is a national network of local crisis centers that provides free and confidential emotional support to people in suicidal crisis or emotional distress 24 hours a day, 7 days a week. Don't Wait! Stop a Heart Attack Before it Starts What is a heart attack? A heart attack is damage or to a part of the heart from severely decreased or lack of blood flow to the heart. Over time, arteries can become narrow from the buildup of fat and cholesterol, which is called plaque. The plaque can rupture causing a blood clot to form. When the blood clot forms, the artery can become severely narrowed or completely blocked, causing a heart attack. Heart attack is the leading cause of in the [place]. 85% of muscle damage occurs within the first 2 hours. Delay in the recognition of heart attack symptoms increases the chances of . Know the early symptoms of a heart attack: Nausea Feeling of fullness in chest Jaw Pain Pain that travels down one or both arms Fatigue/being tired Anxiety Back Pain Chest pressure, squeezing, or discomfort Shortness of breath Sweating, or a cold sweat Feeling of impending doom There are unusual signs of a heart attack, too! Women, the elderly, and diabetics may present with atypical symptoms: Fainting/dizziness Weakness Confusion Risk Factors for a Heart Attack Some heart disease risk factors, such as age and family history, cannot be changed. Others, like smoking and lack of exercise, can be changed. Smoking High Cholesterol High Blood Pressure Family History Obesity Age Gender (Males are at higher risk) Lack of Exercise Diabetes Diet Stress Excessive Alcohol Intake If you or someone you know is experiencing the signs and symptoms of a heart attack, DON???T DELAY. Call immediately and seek help. If someone collapses, perform CPR! Do not attempt to drive if you are having symptoms of heart attack. Hands-Only CPR Why Hands-Only CPR? Hands-Only CPR has been shown to be as effective as conventional CPR for cardiac arrests that occur outside of a hospital. Survival depends on immediately receiving CPR from someone nearby. How do you perform Hands-Only CPR? There are two easy steps: Call if you see a teen or adult collapse Push hard and fast in the center of the chest at a beat of 100 beats per minute. Save a life! 4 WAYS TO GET AHEAD OF SEPSIS SEPSIS is a MEDICAL EMERGENCY. Time matters! Infections put you and your family at risk for a life-threatening condition called sepsis. Sepsis is the body's extreme response to an infection. It is life-threatening, and without timely treatment, sepsis can rapidly lead to tissue damage, organ failure, and . Sepsis happens when an infection you already have-in your skin, lungs, urinary tract or somewhere else-triggers a chain reaction throughout your body. 1 PREVENT INFECTIONS Take good care of chronic conditions. Talk to your doctor about getting the recommended vaccines. 2 PRACTICE GOOD HYGIENE Wash your hands frequently. Keep cuts or open sores clean and covered until they are healed. 3 KNOW THE SYMPTOMS Confusion or disorientation Shortness of breath High heart rate Fever, shivering, or feeling very cold Extreme pain or discomfort Clammy or sweaty skin 4 ACT FAST Get medical care IMMEDIATELY if you suspect sepsis or if you have an infection that is not getting better or is getting worse. To learn more about sepsis and how to prevent infections, visit www.cdc.gov/sepsis. Test Results Laboratory or Other Results This Visit (last charted value for your 11/29/2019 visit) Hematology 11/30/2019 3:30 AM WBC: 14.7 K/uL -- Normal range between ( 4.5 and 10.5 ) RBC: 3.11 Million/uL -- Normal range between ( 3.93 and 5.22 ) Hct: 28.5 % -- Normal range between ( 34.1 and 44.9 ) Hgb: 9.3 g/dL -- Normal range between ( 11.2 and 15.7 ) Platelet Count: 172 K/uL -- Normal range between ( 163 and 369 ) MCH: 29.9 pg -- Normal range between ( 25.6 and 32.2 ) MCHC: 32.6 Gram/dL -- Normal range between ( 32.2 and 36.5 ) MCV: 91.6 fL -- Normal range between ( 79.0 and 94.8 ) Slide Review: No Eos %: 0.0 % -- Normal range between ( 0.0 and 7.0 ) [place] #: 1.30 K/uL -- Normal range between ( 0.16 and 1.00 ) Eos #: 0.00 x10(3)/uL -- Normal range between ( 0.00 and 0.80 ) [place] %: 8.8 % -- Normal range between ( 3.0 and 9.0 ) Baso %: 0.2 % -- Normal range between ( 0.0 and 1.5 ) Baso #: 0.03 x10(3)/uL -- Normal range between ( 0.00 and 0.20 ) RDW: 13.0 % -- Normal range between ( 11.7 and 14.9 ) Neut %: 76.8 % -- Normal range between ( 34.0 and 71.0 ) Neut #: 11.29 K/uL -- Normal range between ( 1.56 and 6.13 ) Lymph %: 13.6 % -- Normal range between ( 19.3 and 53.1 ) Lymph #: 2.00 x10(3)/uL -- Normal range between ( 1.00 and 3.90 ) MPV: 10.9 fL -- Normal range between ( 9.4 and 12.4 ) IG#: 0.09 x10(3)/uL -- Normal range between ( 0.00 and 0.05 ) IG%: 0.60 % -- Normal range between ( 0.00 and 0.60 ) Microbiology 11/27/2019 12:45 PM Novel Coronavirus 2019: Not Detected 11/23/2019 10:03 AM MRSA Surveillance: See Result General Chemistry 11/30/2019 3:30 AM Creatinine Level: 1.00 mg/dL -- Normal range between ( 0.55 and 1.02 ) Sodium Level: 133 mmol/L -- Normal range between ( 136 and 146 ) Potassium Level: 4.4 mmol/L -- Normal range between ( 3.5 and 5.1 ) Chloride Level: 105 mmol/L -- Normal range between ( 102 and 112 ) Carbon Dioxide Level: 22 mmol/L -- Normal range between ( 21 and 32 ) Anion Gap: 10 -- Normal range between ( 9 and 20 ) Bun/Creatinine: 18.0 -- Normal range between ( 8.0 and 20.0 ) Calcium Level: 7.6 mg/dL -- Normal range between ( 8.4 and 10.1 ) eGFR : >60 mL/min/1.73m2 eGFR NonAfrican: 55 mL/min/1.73m2 Glucose Level: 129 mg/dL -- Normal range between ( 74 and 106 ) Blood Urea Nitrogen: 18 mg/dL -- Normal range between ( 7 and 22 ) 11/23/2019 10:03 AM Hgb A1C: 5.9 % eAVG Glucose: 123 mg/dL Coagulation 11/23/2019 10:03 AM INR: 0.9 -- Normal range between ( 0.9 and 1.1 ) PTT: 27.1 Second(s) -- Normal range between ( 24.0 and 34.0 ) PT: 9.8 Second(s) -- Normal range between ( 9.6 and 12.0 ) Patient Name:JAN ESPINAL ANN I have received and understand this information and was given the opportunity to ask questions. Patient/Bulk Filler Name: Patient/Bulk Filler Signature: Relationship to Patient: Clinician/Hospital Bulk Filler Signature: Date: documented in this encounter Plan of Treatment Not on file documented as of this encounter Visit Diagnoses Not on filedocumented in this encounter
--- OUTSIDE RECORDS SUMMARY | 2025-01-31 14:27 | XMS_ITS | Encounter Summary ---
Author Organization [employer] ([place], [place], [place], [place], [place]) Address [address] [place] [address] Care Team Providers Care Scheduling Analyst Name Role Phone Unavailable Primary Care Provider Unavailabl e Encounter Details Date Type Department Care Team (Late st Contact Info) Description 11/30/2019 Transcribed Document [facility] Radiology [address] [place] [address] ProviderDeni MD Social History Tobacco Use Types Packs/Day Years Used Date Smoking Tobacco: Never Assessed Comments Unknown Sex and Gender Information Value Date Recorded Sex Assigned at Not on file Legal Sex Female 5:45 PM CDT Gender Identity Not on file Sexual Orientation Not on file documented as of this encounter Miscellaneous Notes * Cerner Conversion Note - [facility] Joseph ProviderMD - 11/30/2019 4:45 PM EDT Discharge Summary, PT Entered On: 11/30/2019 15:46 EDT Performed On: 11/30/2019 15:45 EDT by MURALI HERNANDEZ PT Discharge Summary Discharge Summary Provider Notified : Nursing, substance abuse services director/case management Reason for Discharge : Discharged from hospital Discharged to, Therapy : Home, with home health Discharge Equipment, PT : Walker Discharge Summary Comment, PT : As of 11/30/2019, pt able to transfer and ambulate today modified independent with RWx. Pt ambulating 150' and able to negotiate 5% 10' incline/decline. Pt instructed on HEP and verbalizes understanding of importance HEP plays in regaining ROM and strength. Pt discharging home today with home health. Pt able to meet all goals. MURALI HERNANDEZ, PT - 11/30/2019 15:45 EDT documented in this encounter Plan of Treatment Not on file documented as of this encounter Visit Diagnoses Not on filedocumented in this encounter
--- OUTSIDE RECORDS SUMMARY | 2025-01-31 14:27 | XMS_ITS | Encounter Summary ---
Author Organization [employer] ([place], [place], [place], [place], [place]) Address [address] [place] [address] Care Team Providers Care Bilingual Instructor Name Role Phone Unavailable Primary Care Provider Unavailabl e Encounter Details Date Type Department Care Team (Late st Contact Info) Description 11/29/2019 Transcribed Document [facility] Radiology [address] [place] [address] ProviderDeni MD Social History Tobacco Use Types Packs/Day Years Used Date Smoking Tobacco: Never Assessed Comments Unknown Sex and Gender Information Value Date Recorded Sex Assigned at Not on file Legal Sex Female 5:45 PM CDT Gender Identity Not on file Sexual Orientation Not on file documented as of this encounter Miscellaneous Notes * Cerner Conversion Note - [facility] Joseph ProviderMD - 11/29/2019 11:48 AM EDT Event Note Entered On: 11/29/2019 10:50 EDT Performed On: 11/29/2019 10:48 EDT by CEDRIC CALVO Event Note Event Date/Time : 11/29/2019 10:00 EDT Event Location : [facility] Description of Event : Patient has PCN allergy listed, per PHARMACEUTICAL SALESPERSON patient had skin test completed and MD was OK with patient recieving Cefazolin as ordered. Patient tolerated Cefazolin Intraoperatively. PACU will intitiate 20 hour infusion per order. CEDRIC CALVO - 11/29/2019 10:48 EDT Electronically signed by Deni Candelaria Conversion Tool Grinder Operator External Cerner at 09/18/2022 5:03 PM CDT documented in this encounter Plan of Treatment Not on file documented as of this encounter Visit Diagnoses Not on filedocumented in this encounter
--- OUTSIDE RECORDS SUMMARY | 2025-01-31 14:27 | XMS_ITS | Encounter Summary ---
Author Organization [employer] ([place], [place], [place], [place], [place]) Address [address] [place] [address] Care Team Providers Care Meteorology Teacher Name Role Phone Unavailable Primary Care Provider Unavailzach e Encounter Details Date Type Department Care Team (Late st Contact Info) Description 11/29/2019 Transcribed Document [facility] Radiology [address] [place] [address] Provider, Deni Ruiz MD Social History Tobacco Use Types Packs/Day Years Used Date Smoking Tobacco: Never Assessed Comments Unknown Sex and Gender Information Value Date Recorded Sex Assigned at Not on file Legal Sex Female 5:45 PM CDT Gender Identity Not on file Sexual Orientation Not on file documented as of this encounter Miscellaneous Notes * Cerner Conversion Note - Deni Ruiz ProviderMD - 11/29/2019 4:04 PM EDT Treatment Intervention, OT Entered On: 11/30/2019 13:12 EDT Performed On: 11/30/2019 9:13 EDT by VIC WATTS, OTR/L General Information, OT Visit Type, OT : Treatment Note Patient Orders : Order Date Order Ordering 11/29/2019 12:46 OT Evaluation and Treatment Ordered By: BRIAN COPE MD-ORT 11/29/2019 12:46 OT Treatment Instructions Ordered By: BRIAN COPE MD-ORKareem 11/29/2019 15:04 OT Additional Treatment Ordered By: Active Diagnoses : 11/30/2019 12:00 Presence of unspecified artificial hip joint Therapy Diagnosis, OT : Decreased I with ADLs and fxnl mobility secondary to osteoarthritis of right hip, resulting in fxnl decline. Admission Date : 11/29/2019 06:27 Co-treated by, OT : Physical Therapist Personal Devices : Personal Devices No Devices Recorded Assistive Devices : Assistive Devices No Devices Recorded VIC WATTS, OTR/L - 11/30/2019 13:07 EDT General Status Patient Received Status : Up in chair Treatment Start Time : 11/30/2019 8:41 EDT Patient Left Status : Up in chair, RN/PCT informed, All needs met and within reach RN/PCT Informed Comment : DONELL Gray Treatment End Time : 11/30/2019 9:13 EDT Treatment Time : 32 Minute(s) VIC WATTS, OTR/L - 11/30/2019 13:07 EDT Self Care/Home Management, OT Upper Body Dressing Assist Level, OT : Independent, complete Lower Body Dressing Assist Level, OT : Supervision or set-up VIC WATTS OTR/L - 11/30/2019 13:07 EDT Functional Mobility Mobility Grid Sit to Stand : Supervision/set-up Stand to Sit : Supervision/set-up STEFANIEVIC Glenys OTR/L - 11/30/2019 13:07 EDT Sit to Stand Device : Belt, gait, Walker, front wheel Stand to Sit Device : Belt, gait, Walker, front wheel VIC WATTS Glenys, OTR/L - 11/30/2019 13:07 EDT Plan of Care, OT OT Tx Plan/Goals Established w Patient : Yes VIC WATTS, OTR/L - 11/30/2019 13:07 EDT Correction Goals, OT Dressing, Lower Body LTG Grid Goal #1 Activity : Dressing, Lower Body Cues : No cues Assist : Independent, modified Equipment : Long Handled Dietetic Aide, Sock aid, Long handled shoehorn Date to Meet : 12/13/2019 EDT Goal Status : Progressing, continue VIC WATTS, OTR/L - 11/30/2019 13:07 EDT Toilet Transfer LTG Grid Goal #1 Activity : Toilet Transfer, Ambulatory Cues : No cues Assist : Independent, modified Equipment : Rolling walker Date to Meet : 12/13/2019 EDT Goal Status : Initial goal VIC WATTS, OTR/L - 11/30/2019 13:07 EDT Bed Mobility/ Bed Transfer LTG Grid Goal #1 Activity : Bed Mobility/Bed Transfer Cues : No cues Assist : Independent, complete Date to Meet : 12/13/2019 EDT Goal Status : Initial goal VIC WATTS Glenys OTR/L - 11/30/2019 13:07 EDT Treatment Note Subjective Comment : Pt and RN vishnu'd OT tx at this time Patient's Response to Treatment : Pt tolerated OT tx well Additional Objective Information : No joint assistant baseball coach present for AE or education Pt sitting up in chair upon OT arrival. Pt provided and educated on AE. Pt completed lower body dressing with appropriate AE and supervision. Pt completed upper body dressing indepedently. Pt stood with RW and superivison. Pt walked approx. 100ft with RWx and supervision. Pt returned to room and left sitting up in chair with call light/phone within reach. Assessment : Pt would continue to benefit from skilled OT services to improve fxnl status. Plan for Treatment : Continue with pt's POC per pt tolerance. VIC WATTS OTKaci/L - 11/30/2019 13:07 EDT Pain Assessment Pain Scaled Used : 0-10 Pain scale Pain Score Pre-Intervention : 0 VIC WATTS OTR/L - 11/30/2019 13:07 EDT Image 1 - Images currently included in the form version of this document have not been included in the text rendition version of the form. [facility] OT Charges OT Selfcare/Hm Mgmt Ea 15 Min : 2 STEFANIE FARHEENRAJIV Veronica OTR/L - 11/30/2019 13:07 EDT Electronically signed by Deni Candelaria Conversion Residential Pest Control Technician Cerner at 09/18/2022 4:50 PM CDT documented in this encounter Plan of Treatment Not on file documented as of this encounter Visit Diagnoses Not on filedocumented in this encounter
--- OUTSIDE RECORDS SUMMARY | 2025-01-31 14:27 | XMS_ITS | Encounter Summary ---
Author Organization [employer] ([place], [place], [place], [place], [place]) Address [address] [place] [address] Care Team Providers Care Social Welfare Administrator Name Role Phone Unavailable Primary Care Provider Unavailabl e Encounter Details Date Type Department Care Team (Late st Contact Info) Description 11/29/2019 Transcribed Document [facility] Radiology [address] [place] [address] ProviderDeni MD Social History Tobacco Use Types Packs/Day Years Used Date Smoking Tobacco: Never Assessed Comments Unknown Sex and Gender Information Value Date Recorded Sex Assigned at Not on file Legal Sex Female 5:45 PM CDT Gender Identity Not on file Sexual Orientation Not on file documented as of this encounter Miscellaneous Notes * Cerner Conversion Note - [facility] Joseph Richardson MD - 11/29/2019 1:46 PM EDT Pain Assessment Entered On: 11/29/2019 14:01 EDT Performed On: 11/29/2019 14:22 EDT by Marina Salazar RN Intervention Information: acetaminophen Performed by Marina Salazar RN on 11/29/2019 13:22:00 EDT acetaminophen,1000mg Oral Pain Assessment Pain Assessment : Follow-up assessment Pain Scale Goal : 3 Pain Scale Used : 0-10 Scale Marina Salazar RN - 11/29/2019 14:01 EDT Pain Scale Intensity : 2 Marina Salazar RN - 11/29/2019 14:01 EDT Image 4 - Images currently included in the form version of this document have not been included in the text rendition version of the form. documented in this encounter Plan of Treatment Not on file documented as of this encounter Visit Diagnoses Not on filedocumented in this encounter
--- OUTSIDE RECORDS SUMMARY | 2025-01-31 14:27 | XMS_ITS | Clinical Summary ---
Author Organization [facility] Address [address] [place] [address] Care Team Providers Care Logistics Analytics Manager Name Role Phone Ciaran Stubbs MD Primary Care Provider [phone] Family History Medical History Relation Name Comments Cardiac disorder Father Other cancer Mother Relation Name Status Comments Father Mother Social History Tobacco Use Types Packs/Day Years Used Date Smoking Tobacco: Never Comments Unknown Sex and Gender Information Value Date Recorded Sex Assigned at Not on file Legal Sex Female 8:02 PM EDT Gender Identity Not on file Sexual Orientation Not on file Last Filed Vital Signs Vital Sign Reading Time Taken Comments Blood Pressure 146/75 09/08/2022 8:06 AM EDT Pulse - - Temperature - - Respiratory Rate - - Oxygen Saturation - - Inhaled Oxygen Concentration - - Weight 48.1 kg (106 lb) 09/08/2022 8:06 AM EDT Height 152.4 cm (5') 09/08/2022 8:06 AM EDT Body Mass Index 20.7 09/08/2022 8:06 AM EDT Plan of Treatment Health Maintenance Due Date Last Done Comments [facility]-Bone Density Scan 1948 [facility]-Depression Screening 1950 [facility]-/Child/Adol SDOH Screenings 1950 [facility]- SDOH Screenings 1966 [facility]-Adult SDOH Screenings 1966 [facility]-DTaP,Tdap,and Td Vaccines (1 - Tdap) 10/14/1967 [facility]-Zoster Vaccines (1 of 2) 1998 [facility]-RSV Vaccine: 60+ Years or (1 - 1-dose 75+ series) 10/14/2023 [id number]-18 Vaccine (4 - 2025- season) 2024 11/20/2020, 07/10/2020, 06/12/2020 [facility]-Influenza Vaccine (#1) 2024 [facility]-Pneumococcal Vaccine: 50+ Years Completed 03/02/2022 HPV Vaccines Aged Out No longer eligi ble based on patient's age to complete this topic [facility]-HIB Vaccines Aged Out No longer e ligible based on patient's age to complete this topic [facility]-Hepatitis A Vaccines Aged Out No longer eligible based on patient's age to complete this topic [facility]-IPV Vaccines Aged Out No longer e ligible based on patient's age to complete this topic [facility]-Rotavirus Vaccines Aged Out No lo nger eligible based on patient's age to complete this topic Insurance MEDICARE Care Teams Logistics Analytics Manager Relationship Specialty Start Date End Date Ciaran Stubbs MD Replaced by [facility] [address] [phone] PCP - General 08/09/20
--- OUTSIDE RECORDS SUMMARY | 2025-01-31 14:27 | XMS_ITS | Encounter Summary ---
Author Organization [employer] ([place], [place], [place], [place], [place]) Address [address] [place] [address] Care Team Providers Care Defense Analyst Name Role Phone Unavailable Primary Care Provider Unavailabl e Encounter Details Date Type Department Care Team (Late st Contact Info) Description 11/30/2019 Transcribed Document [facility] Radiology 1 [place] [address] ProviderDeni MD Social History Tobacco Use Types Packs/Day Years Used Date Smoking Tobacco: Never Assessed Comments Unknown Sex and Gender Information Value Date Recorded Sex Assigned at Not on file Legal Sex Female 5:45 PM CDT Gender Identity Not on file Sexual Orientation Not on file documented as of this encounter Miscellaneous Notes * Cerner Conversion Note - [facility] Joseph Richardson MD - 11/30/2019 3:52 PM EDT Nursing Discharge Summary Entered On: 11/30/2019 14:53 EDT Performed On: 11/30/2019 14:52 EDT by Marina Salazar brush cleaner Documentation Discharge Date/Time : 11/30/2019 14:20 EDT Patient Disposition, General : Discharge Discharge To : Home with ambulatory/outpatient follow-up Mode Of Departure, General Discharge : Private vehicle Accompanied By, Discharge : Spouse IV Discontinued : Yes Personal Belongings With Patient : Yes Medications Given to Patient : Yes Discharge Instructions Reviewed With, Opportunity For Questions Given : Patient, Spouse, Other: Joint head girls golf coach spouse Patient Education Completed : Yes Number of Medications Given : 3 Teaching Method : Explanation Teaching Evaluation : Verbalizes understanding Education Comment : Pt verbalized understanding of incentive spirometry. Had difficulty initially with getting class online on her ipad. Her stepson helped her access it via phone. Marina Salazar RN - 11/30/2019 14:52 EDT documented in this encounter Plan of Treatment Not on file documented as of this encounter Visit Diagnoses Not on filedocumented in this encounter
--- OUTSIDE RECORDS SUMMARY | 2025-01-31 14:27 | XMS_ITS | Encounter Summary ---
Author Organization [employer] ([place], [place], [place], [place], [place]) Address [address] [place] [address] Care Team Providers Care Gyro Mechanic Name Role Phone Unavailable Primary Care Provider Unavailabl e Encounter Details Date Type Department Care Team (Late st Contact Info) Description 11/28/2019 Transcribed Document [facility] Radiology [address] [place] [address] ProviderDeni MD Social History Tobacco Use Types Packs/Day Years Used Date Smoking Tobacco: Never Assessed Comments Unknown Sex and Gender Information Value Date Recorded Sex Assigned at Not on file Legal Sex Female 5:45 PM CDT Gender Identity Not on file Sexual Orientation Not on file documented as of this encounter Miscellaneous Notes * Cerner Conversion Note - Deni Richardson MD - 11/28/2019 2:26 PM EDT UM Authorization Entered On: 11/28/2019 13:27 EDT Performed On: 11/28/2019 13:26 EDT by FRANCES RIOJAS Level Glass Forming Machine Operator Primary Insurance Authorization Authorization and Policy Numbers : Insurance 1 Health Plan: [facility] MEDICARE ADVANTAGE Policy Number: [id number] Authorization Number: Insurance Primary Name : [facility] Medicare [id number] Authorized Service Begin Date-Primary : 11/29/2019 EDT Authorization Comments-Primary : Patient is scheduled for OUT PT total hip replacement on 11-29-2019 [facility] MCR: NPR for OP Historical Authorization Comments-Primary : No Authorization Comments Found FRANCES RIOJAS Level Glass Forming Machine Operator - 11/28/2019 13:26 EDT documented in this encounter Plan of Treatment Not on file documented as of this encounter Visit Diagnoses Not on filedocumented in this encounter
--- OUTSIDE RECORDS SUMMARY | 2025-01-31 14:27 | XMS_ITS | Encounter Summary ---
Author Organization [employer] ([place], [place], [place], [place], [place]) Address [address] [place] [address] Care Team Providers Care Sales Representative Wire Rope Name Role Phone Unavailable Primary Care Provider Unavailabl e Encounter Details Date Type Department Care Team (Late st Contact Info) Description 11/30/2019 Transcribed Document [facility] Radiology 1 [place] [address] Provider, eDni Ruiz MD Social History Tobacco Use Types Packs/Day Years Used Date Smoking Tobacco: Never Assessed Comments Unknown Sex and Gender Information Value Date Recorded Sex Assigned at Not on file Legal Sex Female 5:45 PM CDT Gender Identity Not on file Sexual Orientation Not on file documented as of this encounter Miscellaneous Notes * Cerner Conversion Note - Deni Ruiz ProviderMD - 11/30/2019 12:57 PM EDT Initial Discharge Planning Entered On: 11/30/2019 11:59 EDT Performed On: 11/30/2019 11:57 EDT by KATY SOLOMON RN-Traffic Line Painter Initial Assessment I Previously Documented Living Environment : No qualifying data available. Living Situation : Home Patient Lives With : Spouse Is the Patient a Caregiver at Home? : No Emergency Contact #1 : Luis Danieltae Espinal Emergency Contact #1 Emergency Contact #1 Relationship : spouse Emergency Contact #2 : n Emergency Contact #2 Phone Number : n Emergency Contact #2 Relationship : n KATY SOLOMON RN-Traffic Line Painter - 11/30/2019 11:57 EDT Initial Assessment II Sensory and Motor Deficits : None Current Home Treatments and Equipment : Walker Does the Patient have a Floor to SNF Benefit? : No KATY SOLOMON RN-Traffic Line Painter - 11/30/2019 11:57 EDT Discharge Needs I Anticipated Discharge Date : 11/30/2019 EDT Anticipated Discharge To, CM : Home with home health Current Home Treatment/Equipment : Current Home Treatment/Equipment No qualifying data available. Post Acute/Home Treatments : None Documentation Status Complete : Yes KATY SOLOMON RN-Traffic Line Painter - 11/30/2019 11:57 EDT Discharge Needs II Professional Skilled Services : Professional Skilled Services No qualifying data available. Needs Assistance with Transportation : No Discharge Options Discussed with Patient : Home Health KATY SOLOMON RN-Traffic Line Painter - 11/30/2019 11:57 EDT Narrative Note Narrative Note : 69yo female pt s/p RTHA-DA. Met with pt at bedside to discuss DCP. Pt has DME at home. Referral sent to [facility] (chose in ) via [place] and confirmed acceptance with Shanika in intake. No other CM needs identified. KATY SOLOMON RN-Traffic Line Painter - 11/30/2019 11:57 EDT Electronically signed by Deni Candelaria Conversion Book Jacket Cover Machine Operator Cerner at 09/18/2022 5:01 PM CDT documented in this encounter Plan of Treatment Not on file documented as of this encounter Visit Diagnoses Not on filedocumented in this encounter
--- OUTSIDE RECORDS SUMMARY | 2025-01-31 14:27 | XMS_ITS | Encounter Summary ---
Author Organization [employer] ([place], [place], [place], [place], [place]) Address [address] [place] [address] Care Team Providers Care Sql Database Developer Name Role Phone Unavailable Primary Care Provider Unavailabl e Encounter Details Date Type Department Care Team (Late st Contact Info) Description 11/23/2019 Transcribed Document [facility] Radiology [address] [place] [address] Provider, Deni Ruiz MD Social [...] Conversion Note - Deni Ruiz ProviderMD - 11/23/2019 10:56 AM EDT PAT Adult Entered On: 11/23/2019 9:59 EDT Performed On: 11/23/2019 9:56 EDT by GAMA VASQUEZ RN Vital Measurements Temperature Source : Temporal artery scanning Temperature Mode : Fahrenheit Temperature, Fahrenheit : 97.3 Deg F Clinical Temperature, C : 36.3 Deg C Pulse Method : Pulse Oximetry Peripheral Pulse Rate : 53 bpm (LOW) Blood Pressure Location : Arm, left upper Blood Pressure Source : Non-Invasive BP Device Blood Pressure Position : Sitting Systolic Blood Pressure : 136 mmHg Diastolic Blood Pressure : 63 mmHg Oxygen Saturation : 100 % Oxygen Therapy Mode : Room air GAMA VASQUEZ RN - 11/23/2019 10:42 EDT Height and Weight, Clinical Dosing Height Source : Measured Height Entry Format : Haakon Height, Feet : 0 ft(Converted to: 0 cm, 0 Inch) Height, Inches : 60.5 Inch(Converted to: 5 ft 0 Inch, 153.67 cm) Clinical Height : 153.67 cm Weight Source : Standing scale Weight Entry Format : Haakon Clinical Dosing Weight : 50 kg Weight, Pounds : 110 lb Body Surface Area (BSA) : 1.46 m2 Body Mass Index : 21.2 kg/m2 Raymond Body Weight : 46 kg GAMA AVSQUEZ RN - 11/23/2019 9:56 EDT Health Histories Smoking Status : Never (less than 100 in lifetime; none in last 30 days) Smokeless Tobacco Status : Never GAMA VASQUEZ RN - 11/23/2019 9:56 EDT Social History (As Of: 11/23/2019 09:59:46 EDT) Tobacco: Smoking Status Never smoker. (Last Updated: 11/07/2015 10:18:33 EDT by CHERI KRISHNAN, RN) Alcohol: Alcohol Use History Yes. Alcohol Use Frequency Rarely. Alcohol Use Comment a glass of wine once or twice a year . (Last Updated: 11/07/2015 10:19:02 EDT by CHERI KRISHNAN, RN) Substance Abuse: Drug Use Hx: No. Use in Last 12 Months: No. (Last Updated: 11/07/2015 10:19:07 EDT by CHERI KRISHNAN, RN) Home/Environment: Lives with Spouse. Home equipment: Walker/Cane. (Last Updated: 11/08/2015 08:22:43 EDT by TRENA CHUNG, DONELL) Home equipment: Wheelchair. (Last Updated: 11/08/2015 08:23:00 EDT by TRENA CHUNG, DONELL) Employment/School: Retired (Last Updated: 11/08/2015 08:22:53 EDT by TRENA CHUNG, DONELL) Infectious Disease History Has the patient ever been tested for COVID-19? : No, Patient stated Does patient have symptoms of COVID-19? : No COVID19 Screening : No Experiencing Infectious Disease Symptoms : No symptoms Physical contact outside [place] in the last 30 days : No Infectious Disease History : None Tuberculosis Symptoms : None GAMA VASQUEZ RN - 11/23/2019 9:56 EDT COVID19 PreProcedure Screening Has patient been isolated since the test : No Exposed to COVID19 symptoms since test? : No Kaity Rose RN - 11/29/2019 7:17 EDT Is this an Emergent or Add on Procedure? : No GAMA VASQUEZ RN - 11/23/2019 9:56 EDT Anesthesia/Transfusion History Family History of Anesthesia Reaction : No prior transfusion(s) Blood Transfusion Acceptable to Patient : Yes Transfusion History : Prior anesthesia without reaction Family History of Anesthesia Reaction : None GAMA VASQUEZ RN - 11/23/2019 9:56 EDT Advance Directive Copy Advance Directive Verified/on Chart : Yes GAMA VASQUEZ RN - 11/23/2019 10:09 EDT Patient has Advance Directive *Q : Yes, Advance Directive with the patient Advance Directive Type : Living will GAMA VASQUEZ RN - 11/23/2019 9:56 EDT Spiritual/Cultural Needs Any Spiritual/Cultural Needs or Requests : Yes Spiritual/Cultural Needs Comment : prayer before surgery (11/29/2019 TBA) Spiritual/Cultural Needs Comment : prayer before surgery (11/29/2019 TBA) GAMA VASQUEZ RN - 11/23/2019 10:09 EDT [place] Suicide Severity Rating Scale (C-SSRS) CSSRS Past Month Wish to be : No CSSRS Past Month Suicidal Thoughts : No CSSRS Lifetime Suicide Behavior : No Suicide Severity Rating Score : 0 Suicide Severity Rating : No Additional Care Required at this time GAMA VASQUEZ RN - 11/23/2019 10:09 EDT Psychosocial History Do You Have a History of the Following? : Patient denies history Currently in Unsafe Situation : No GAMA VASQUEZ RN - 11/23/2019 9:56 EDT General Info Preferred Name : Mary Support Person/Patient Inside Sales Advisor : Yes Support Person/Pt Rep Name : Luis Daniel Espinal, spouse Support Person/Pt Rep Contact Information : [phone] home Want Family/Rep/Phys Notified of Admit : No Emergency Contact #1 : Luis Daniel Espinal Emergency Contact #1 Emergency Contact #1 Relationship : spouse Emergency Contact #2 : n Emergency Contact #2 Phone Number : n Emergency Contact #2 Relationship : n Information Obtained From : Patient Primary Language : Ugandan Preferred Communication Mode : Verbal Communication Barrier : None Press Catcher Needed : No GAMA VASQUEZ RN - 11/23/2019 10:09 EDT Pepe Scale Pepe Sensory Perception : Slightly limited Pepe Moisture : Rarely moist Pepe Activity : Walks occasionally Pepe Mobility : Slightly limited Pepe Nutrition : Adequate Pepe Friction and Shear : No apparent problem Pepe Score : 19 GAMA VASQUEZ RN - 11/23/2019 10:15 EDT Sleep Apnea Risk Assmt Hx of Obstructive Sleep Apnea Diagnosis : No Snore Loudly : No Tired, Fatigued, or Sleepy During Day : Yes Observed Stopping Breathing During Sleep : No Have/Are Being Treated for Hypertension : Yes BMI Greater Than 35 kg/m2 : No Age over 50 Years Old : Yes Neck Circumference Greater Than 40 cm : No Gender Male : No STOP-BANG Sleep Apnea Risk Level Score : 3 GAMA VASQUEZ RN - 11/23/2019 9:56 EDT Electronically signed by Deni Candelaria Conversion Golf Course Equipment Operator Cerner at 09/18/2022 5:18 PM CDT documented in this encounter Plan of Treatment Not on file documented as of this encounter Visit Diagnoses Not on filedocumented in this encounter
--- OUTSIDE RECORDS SUMMARY | 2025-01-31 14:27 | XMS_ITS | Encounter Summary ---
Author Organization [employer] ([place], [place], [place], [place], [place]) Address [address] [place] [address] Care Team Providers Care Web Communications Specialist Name Role Phone Unavailable Primary Care Provider Unavailabl e Encounter Details Date Type Department Care Team (Late st Contact Info) Description 10/31/2019 Transcribed Document [facility] Radiology [address] [place] [address] Provider, Deni Ruiz MD Social [...] Conversion Note - Deni Ruiz ProviderMD - 10/31/2019 3:56 PM EDT Total Joints Assessment Entered On: 01/01/2020 14:56 EDT Performed On: 10/31/2019 14:56 EDT by Bonnie Pereyra RN-Navigator JR STEFFEN. Hip Survey 1. Going up or down stairs : Severe 2. Walking on an uneven surface : Moderate 3. Rising from sitting : Moderate 4. Bending to floor/picker box operator an object : Moderate 5. Lying in bed (turning over, maintaining hip position) : Severe 6. Sitting : Moderate STEFFEN ROBERT Raw Score (ref) : 14 Bonnie Pereyra RN-Navigator - 01/01/2020 14:56 EDT PROMIS Global Health Scale In general, would you say your health is: : Good In general, would you say your quality of life is: : Very good In general, how would you rate your physical health? : Good In general, how would you rate your mental health, including your mood and your ability to think? : Good In general, how would you rate your satisfaction with your social activities and relationships? : Very good In general, please rate how well you carry out your usual social activities and roles. (This includes activities at home, at work and in your community, and responsibilities as a parent, child, spouse, employee, friend, etc.) : Good To what extent are you able to carry out your everyday physical activities such as walking, climbing stairs, carrying groceries, or moving a chair? : Mostly How often have you been bothered by emotional problems such as feeling anxious, depressed or irritable? : Sometimes How would you rate your fatigue on average? : Moderate How would you rate your pain on average? : 7 Global Physical Health Score (ref) : 12 Global Mental Health Score (ref) : 14 Bonnie Pereyra RN-Navigator - 01/01/2020 14:56 EDT Electronically signed by Deni Candelaria Conversion Embroidery Machine Operator Cerner at 09/18/2022 5:04 PM CDT documented in this encounter Plan of Treatment Not on file documented as of this encounter Visit Diagnoses Not on filedocumented in this encounter
--- OUTSIDE RECORDS SUMMARY | 2025-01-31 14:27 | XMS_ITS | Patient Health Record ---
[facility] Address [address] [facility] [address] [place] [id number] Care Team Providers Care Tester Operator Name Role Phone Valley HeadTanyaCiaran Primary Care Provider Allergies Allergen (clinical drug [...] 56 Performing Lab: Notes/Report: Test performed by [facility], [employer] [address] [place] [address] , [address], [place] [address] Kenny Sosa MD, Breast Splitter CLIA: [id number] Sodium 143 135-145 mmol/L Potassium 4.2 3.5-5.3 mmol/L Chloride 104 97-108 mmol/L CO2 28 22-32 mmol/L Glucose 105 65-99 mg/dL BUN 26 8-23 mg/dL Creatinine 1.04 0.50-1.00 mg/dL Calcium 9.3 8.6-10.4 mg/dL eGFR by Creatinine 56 >59 mL/min/1.73m2 P-Lipid Panel Reviewed date:04/24/2024 08:32:10 AM Interpretation:trigs 225 Performing Lab: Notes/Report: Test performed by [facility], [address] , [place] [address] Kenny Sosa MD, Breast Splitter CLIA: [id number] Cholesterol 168 <200 mg/dL Triglycerides 225 <150 [...] Results: 69 Units: mg/dL % Change: +23% Medications Medication SIG (Take, Route, Frequency, Duration) Notes Start Date End Date Status Calcium Carbonate 1250 (500 Ca) MG 1 tab(s) chewed once a day Active Gabapentin 300 MG 2 capsule Orally Two times a day 12/03/2023 Active Plavix 75 MG 1 tab(s) orally once a day Active Aspirin Adult Low Dose 81 MG 1 tab(s) orally once a day Active Nitroglycerin 0.4 MG 1 tab(s) sublingual ly every 5-15 minutes Active Albuterol Sulfate HFA 108 (90 Base) [...] tab(s) orall y once a day Active SM Vitamin D3 100 MCG (4000 UT) 1 tab(s) orally once a day 09/08/2010 Active Furosemide 20 MG 1 tab(s) orally once a day Active traZODone HCl 50 MG TAKE 1 TO 2 TABLETS BY MOUTH ONCE DAILY; Duration: 23 Active Atorvastatin Calcium 20 MG 1 tablet Oral ly Once a day; Duration: 30 days Active Immunizations Vaccine Route Administration Date Status Comme nts COVID 19 Moderna Unknown 06/12/2020 Administered COVID 19 Moderna Unknown 07/10/2020 Administered COVID 19 Moderna Unknown 11/20/2020 Administered Prevnar (PCV20) IM Intramuscular 03/02/2022 Administered Tetanus Tdap-Adacel (over 7yrs) IM Intramuscular 08/02/2012 Administered Problems Problem Type SNOMED Code ICD Code Onset Dates Problem Status W/U Status Risk Notes Problem Essential hypertension (17044735) Essential hypertension (I10) Active confirmed Problem Abnormal mammogram (049599372) Abnormal mammogram (R92.8) Active confirmed Problem Hypertriglyceridemia (063830880) Hypertriglyceridemia (E78.1) Active confirmed Problem Osteopenia (553462078) Osteopenia (M85.80) Active confirmed Problem Sciatica (73675754) Lumbago with sciatica, right side (M54.41) Active confirmed Problem Pure hypercholesterolemia (518804295) Pure hypercholesterolemia (E78.0) Active confirmed Problem Primary insomnia (1064712) Primary insomnia (F51.01) Active confirmed Problem Sciatica (30863865) Lumbago with sciatica, left side (M54.42) Active confirmed Problem Degeneration of lumbar intervertebral disc (18104253) Lumbar degenerative disc disease (M51.36) Active confirmed Problem Chronic pain (40125116) Other chronic pain (G89.29) Active confirmed Problem COPD - Chronic obstructive pulmonary disease (01057857) Chronic obstructive pulmonary disease, unspecified COPD type (J44.9) Active confirmed Problem Atherosclerotic hear t disease of [place] coronary artery without angina pectoris (211819467442194) Coronary artery disease involving [place] coronary artery of [place] heart without angina pectoris (I25.10) Active confirmed Problem Arthropathy of lumba r facet joint (645334557) Lumbar facet arthropathy (M46.96) Active confirmed Problem Asthma without statu s asthmaticus (16268622) Uncomplicated asthma, unspecified asthma severity (J45.909) Active confirmed Problem Amnesia (79442923) Memory change (R41.3) Active confirmed Problem Sciatica (68001668) Chronic bila teral low back pain with left-sided sciatica (M54.42) Active confirmed Problem Impaired fasting glycaemia (385674592) IFG (impaired fasting glucose) (R73.01) Active confirmed Problem Decreased renal function (07174119) Decreased renal function (N28.9) Active confirmed Problem Pure hypercholesterolemia (174313066) Pure hypercholesterolemia (E78.00) Active confirmed Problem History of placement of stent for coronary artery disease (situation) (682062543) S/P coronary artery stent placement (Z95.5) Active confirmed Problem Sciatica (97873244) Sciatica, un specified laterality (M54.30) Active confirmed Vital Signs Heart Rate 64 /min 04/21/2024 Blood pressure diastolic 62 mm Hg 04/21/2024 Height 61 in 04/21/2024 Blood pressure systolic 124 mm Hg 04/21/2024 Weight 110.2 lbs 04/21/2024 BMI 20.82 kg/m2 04/21/2024 Encounters Encounter Location Date Provider [facility] [address] [facility] [address] [facility] [address] [place] [id number] 04/21/2024 Ciaran Stubbs Primary insomnia F51 .01 ; Essential hypertension I10 ; IFG (impaired fasting glucose) R73.01 ; Renal insufficiency N28.9 ; Lumbago with sciatica, right side M54.41 and Other chronic pain G89.29 [facility] [address] [facility] [address] [facility] [address] [place] [id number] 04/24/2024 Ciaran Stubbs Assessments Encounter Date Diagnosis (ICD Code) Assessment Notes Treatment Notes Treatment Clinical Notes Section Notes 04/21/2024 Essential hypertension (ICD-10 - I10) 04/21/2024 Primary insomnia (ICD-10 - F51.01) 04/21/2024 IFG (impaired fasting glucose) (ICD-10 - R73.01) 04/21/2024 Renal insufficiency (ICD-10 - N28.9) 04/21/2024 Lumbago with sciatica, right side (ICD-10 - M54.41) 04/21/2024 Other chronic pain (ICD-10 - G89.29) Plan Of Treatment No Information Insurance Providers Payer Name Payer Address Payer Phone Subscriber Number Group Number Insured Name Patient Relationship to Insured Coverage Start Date Coverage End Date [employer] MEDICARE [address] [address] [place], [place] [id number] Kylie Luis Daniel Spouse - patient is the spouse of the insured Medical (General) History Medical History History ICD Code Coronary Artery Disease, stent placed 20 Hypertension Hyperlipidemia Asthma Skin Cancer ACL Tear 2000 LT Knee and Hip Osteoarthritis Face, Leg, Arm Basal Cell Carinoma Surgical History Surgery Date(Month/Year) Deviated Septum Tubal Ligation LT Wrist Break Repair LT Ankles Break Repair LT ACL Replacement Bilateral Cataract Repair Skin Cancer Removal x 2 Colonoscopy 2012 Cardiac Stent x1 04/20/2017 Cardiac Stent x1 - Aortic Artery 018 Cardiac Stent x2 - Matthew 10/06/2018 RT Hip Replacement - Dr. Powell 11/29/2019 Cryotherapy on her Nose - Dermatology - Skin Cancer 01/2020 Hospitalization History Reason Date(Month/Year) [place] [facility] [place] St[facility]acement- [facility] 11/2017
--- OUTSIDE RECORDS SUMMARY | 2025-01-31 14:28 | XMS_ITS | Encounter Summary ---
Author Organization [employer] ([place], [place], [place], [place], [place]) Address [address] [place] [address] Care Team Providers Care Parts Assembler Name Role Phone Unavailable Primary Care Provider Unavailabl e Encounter Details Date Type Department Care Team (Late st Contact Info) Description 11/30/2019 Transcribed Document [facility] Radiology [address] [place] [address] Deni Richardson MD Social History Tobacco Use Types Packs/Day Years Used Date Smoking Tobacco: Never Assessed Comments Unknown Sex and Gender Information Value Date Recorded Sex Assigned at Not on file Legal Sex Female 5:45 PM CDT Gender Identity Not on file Sexual Orientation Not on file documented as of this encounter Miscellaneous Notes * Cerner Conversion Note - [facility] Joseph ProviderMD - 11/30/2019 6:00 AM EDT Chart Check - Review Order Profile Entered On: 11/30/2019 6:24 EDT Performed On: 11/30/2019 5:00 EDT by Wanda Kuo, RN Chart Check Powerplans Initiated/Discontinued as Appropriate : Yes All Active Orders Reviewed : Yes Wanda Kuo, RN - 11/30/2019 6:24 EDT Electronically signed by Deni Candelaria Conversion Marketing Project Coordinator Cerner at 09/18/2022 5:11 PM CDT documented in this encounter Plan of Treatment Not on file documented as of this encounter Visit Diagnoses Not on filedocumented in this encounter
--- OUTSIDE RECORDS SUMMARY | 2025-01-31 14:28 | XMS_ITS | Encounter Summary ---
Author Organization [employer] ([place], [place], [place], [place], [place]) Address [address] [place] [address] Care Team Providers Care Appraiser Timber Name Role Phone Unavailable Primary Care Provider Unavailabl e Encounter Details Date Type Department Care Team (Late st Contact Info) Description 11/30/2019 Transcribed Document [facility] Radiology [address] [place] [address] Provider, Deni Ruiz MD Social [...] Conversion Note - Deni Richardson MD - 11/30/2019 1:40 PM EDT Patient Education Materials Follows: CALL FIRST! Unless you are experiencing life-threatening issues, call your surgeon's office or nurse navigator first, before going to the Emergency Department. Call your surgeon or nurse navigator if: ?? Your incision has increased swelling that does not get better with time, rest, and propping up your leg ?? Your incision has a foul smell or begins to open ?? You have a large amount of bleeding from incision ?? Your incision gets red, warm or increased drainage after 2 days ?? You have a fever over 101 degrees for more than 24 hours ?? You have increased swelling, redness, warmth or pain in your calf ?? You fall, but don't have an obvious injury ?? You have questions or cause for concern regarding your total joint replacement Call 911 if: ?? You have sudden chest pain or shortness of breath ?? You fall and cannot get up ?? Life-threatening signs or symptoms ?? Stroke signs and symptoms: Facial droop, uneven smile, arm numbness, arm weakness, slurred speech, difficulty speaking or understanding If you are a patient of Dr. Alves or Dr. Ortega, call [phone] If you are a patient of Dr. Nolasco, call [phone] Nurse Navigator: Tamera Pereyra Office: [phone]; ; available during regular business hours Discharge [...] before and after changing the dressing. Activity: ?? You may put weight on your leg when you walk, unless your surgeon tells you not differently. Use your walker until the therapist or surgeon say you do not need it anymore. Continue your exercises from physical therapy. ?? Stay active, getting up every 1-2 hours, walk short distances, and increase how far you walk a little each week. No driving until cleared by your surgeon. ?? If your surgeon has ordered support hose, continue to wear them for 6 weeks in order to prevent blood clots. Remove them 1-2 times per day for about 30 minutes-1 hour. Check your skin for red or open areas under stockings. Thigh-high support hose can be bought online and at many pharmacies, be sure that compression is 15-20mmHg. ?? For swelling, prop up your leg above your heart. Apply cold therapy, 30 minutes on 30 minutes off with cloth or clothing between cold wrap and skin. General Instructions: ?? Increase fiber and protein intake. Drink 8-10 [...] your home health nurse or surgeon office. ?? Continue using your incentive spirometer to keep fever and lung infection away. Aim for 10 breaths every hour while you are awake. ?? Take pain medicine as needed, especially before therapy. ?? Let your doctors and dentist know you [...] or pain in your calf. A Fall: ?? You fall down, but don???t have an obvious injury. Call 911: Sudden shortness of breath and/or chest pain You fall down and cannot get up Stroke signs and symptoms: Facial droop, uneven smile, arm numbness, arm weakness, slurred speech, difficulty speaking or understanding Last Revised May 2016 documented in this encounter Plan of Treatment Not on file documented as of this encounter Visit Diagnoses Not on filedocumented in this encounter
--- OUTSIDE RECORDS SUMMARY | 2025-01-31 14:28 | XMS_ITS | Encounter Summary ---
Author Organization [employer] ([place], [place], [place], [place], [place]) Address [address] [place] [address] Care Team Providers Care Machine Heddle Cleaner Name Role Phone Unavailable Primary Care Provider Unavailabl e Encounter Details Date Type Department Care Team (Late st Contact Info) Description 11/30/2019 Transcribed Document [facility] Radiology [address] [place] [address] Provider, Deni Ruiz MD Social [...] Note - Deni Richardson MD - 11/30/2019 1:00 PM EDT Final Discharge Planning Entered On: 11/30/2019 12:00 EDT Performed On: 11/30/2019 12:00 EDT by KATY SOLOMON RN-Medical Claims Examiner Final Discharge Planning Discharge Arrangements : Patient Post-Acute Information Patient Name: JAN ESPINAL Gender: Female : 46 Age: 69 Years Brenna Referral(s): Service: Organization: Business Address: Phone Number: [facility] [address], [address] Patient Offered Choice/Affiliations Explained : Yes Designation of Choice Signed : Yes Important Medicare Message Reviewed With : Other: Outpatient Transportation Needs : Family/Friend Follow Up Appointment Scheduled : Yes Is Patient High/Moderate Readmission Risk? : No Patient/Family Notified of Plan : Yes Is Patient Ready for Discharge? : Yes Physician Notified Patient is Ready for Discharge? : Yes Discharge To Care Management : Home Health Services (Related/SOC within 3 days)- KATY SOLOMON RN-Medical Claims Examiner - 11/30/2019 12:00 EDT documented in this encounter Plan of Treatment Not on file documented as of this encounter Visit Diagnoses Not on filedocumented in this encounter
--- OUTSIDE RECORDS SUMMARY | 2025-01-31 14:28 | XMS_ITS | Encounter Summary ---
Author Organization [employer] ([place], [place], [place], [place], [place]) Address [address] [place] [address] Care Team Providers Care Loom Control Chain Builder Name Role Phone Unavailable Primary Care Provider Unavailabl e Encounter Details Date Type Department Care Team (Late st Contact Info) Description 11/29/2019 Transcribed Document [facility] Radiology 1 [place] [address] Provider, Deni Ruiz MD Social [...] Note - Deni Ruiz ProviderMD - 11/29/2019 4:19 PM EDT Treatment Intervention, PT Entered On: 11/30/2019 15:44 EDT Performed On: 11/30/2019 15:37 EDT by MURALI HERNANDEZ, PT General Information, PT Visit Type, PT : Treatment Note Patient Orders : Order Date Order Ordering 11/29/2019 12:46 PT Evaluation and Treatment Ordered By: BRIAN COPE MD-ORT 11/29/2019 12:46 PT Treatment Instructions Ordered By: BRIAN COPE MD-ORT 11/29/2019 12:46 PT Treatment Instructions Ordered By: BRIAN COPE MD-ORT 11/29/2019 12:46 PT Treatment Instructions Ordered By: BRIAN COPE MD-ORT 11/29/2019 12:46 PT Treatment Instructions Ordered By: BRIAN COPE MD-ORT 11/29/2019 12:46 PT Treatment Instructions Ordered By: BRIAN COPE MD-ORT 11/29/2019 15:19 Physical Therapy Additional Tx Ordered By: JAY MATUTE PT Active Diagnoses : 11/30/2019 12:00 Presence of unspecified artificial hip joint Admission Date : 11/29/2019 06:27 Co-treated by, PT : Occupational Therapist Assisted by, PT : Occupational Therapist Personal Devices : Personal Devices No Devices Recorded Assistive Devices : Assistive Devices No Devices Recorded MURALI HERNANDEZ PT - 11/30/2019 15:37 EDT General Status Patient Received Status : Up in chair Treatment Start Time : 11/30/2019 8:41 EDT Patient Left Status : Up in chair, RN/PCT informed, Communication board completed, All needs met and within reach RN/PCT Informed Comment : RN Ok'd PTx. Treatment End Time : 11/30/2019 9:23 EDT Treatment Time : 42 Minute(s) MURALI HERNANDEZ PT - 11/30/2019 15:37 EDT Intervention Summary O2 Pre-Intervention : RA MURALI HERNANDEZ PT - 11/30/2019 15:37 EDT Functional Mobility Mobility Grid Supine to Sit : Rehab Complete independence Sit to Stand : Rehab Modified independence Stand to Sit : Rehab Modified independence Sit to Supine : Rehab Complete independence MURALI HERNANDEZ PT - 11/30/2019 15:37 EDT Sit to Stand Device : Belt, gait, Walker, front wheel Stand to Sit Device : Belt, gait, Walker, front wheel MURALI HERNANDEZ PT - 11/30/2019 15:37 EDT Gait Training/Assessment, PT Weight Bearing Status : As tolerated left lower extremity Gait Assistance Level : Independent, modified Walking Distance : 150' Ambulatory Devices : Gait belt, Walker, front wheel Gait Training Comment : pt educated on step to gait pattern but able to demonstrate reciprocal pattern with no difficulty, increase in pain, or balance disturbances. Pt able to ambulate up/down 10 ft 5% incline MURALI HERNANDEZ PT - 11/30/2019 15:37 EDT Edu Topics Physical Therapy Education Grid Bed Mobility Training : Returns demonstration, Needs further teaching Gait Training : Returns demonstration, Needs further teaching Therapeutic Exercises : Returns demonstration, Needs further teaching MURALI HERNANDEZ PT - 11/30/2019 15:37 EDT Indication Assesessment, PT Physical Therapy Indicated : Yes MURALI HERNANDEZ PT - 11/30/2019 15:37 EDT Plan of Care, PT PT Tx Plan/Goals Established w Patient : Yes MURALI HERNANDEZ PT - 11/30/2019 15:37 EDT Food Safety Scientist Goals Mobility/Bed Mobility LTG PT Grid Goal #1 Activity : Sit to stand Assist : Independent, modified Equipment : Walker, front wheel Date to Meet : 12/06/2019 EDT Goal Status : Goal met Date Met : 11/30/2019 EDT MURALI HERNANDEZ PT - 11/30/2019 15:37 EDT Ambulation LTG Grid Goal #1 Device : Walker, front wheel Distance : 150 ft Assist : Independent, modified Date to Meet : 12/06/2019 EDT Goal Status : Goal met Date Met : 11/30/2019 EDT MURALI HERNANDEZ, PT - 11/30/2019 15:37 EDT Treatment Note Subjective Comment : Pt agreed to PTx. Additional Objective Information : Pt educated on and reviewed HEP. Pt educated on frequency, intensity, duration. Pt performed seated LAQ, supine hip abduction/flexion, supine quad sets, supine glute sets, supine ankle pumps. Pt performed 10 repetitions for each exercise. No joint cross country and track and field coach present today. Assessment : Pt able to transfer and ambulate today modified independent with RWx. Pt ambulating 150' and able to negotiate 5% 10' incline/decline. Pt instructed on HEP and verbalizes understanding of importance HEP plays in regaining ROM and strength. Pt safe to discharge home today with home health therapy. Plan for Treatment : Continue with PTx and POC. MURALI HERNANDEZ PT - 11/30/2019 15:37 EDT Pain Assessment Pain Scaled Used : 0-10 Pain scale Pain Score Pre-Intervention : 0 MURALI HERNANDEZ PT - 11/30/2019 15:37 EDT Image 1 - Images currently included in the form version of this document have not been included in the text rendition version of the form. Anticipated Discharge Needs, OT/PT Anticipated Discharge to : Home, with home health Recommend Continued Therapy at Discharge : Yes MURALI HERNANDEZ PT - 11/30/2019 15:37 EDT [facility] Charges PT Therap. Exercise 15 min : 1 PT Ther Activities Ea 15 Min : 1 Gait Training Each 15 Min : 1 MURALI HERNANDEZ, PT - 11/30/2019 15:37 EDT documented in this encounter Plan of Treatment Not on file documented as of this encounter Visit Diagnoses Not on filedocumented in this encounter
--- OUTSIDE RECORDS SUMMARY | 2025-01-31 14:28 | XMS_ITS | Encounter Summary ---
Author Organization [facility] ([place], [place], [place], [place], [place]) Address [address] [place] [address] Care Team Providers Care Administrator Of Home Health Name Role Phone Unavailable Primary Care Provider Unavailabl e Encounter Details Date Type Department Care Team (Late st Contact Info) Description 11/29/[address] [facility] Radiology [address] [place] [address] Provider, [facility] MD Joseph Social History Tobacco Use Types Packs/Day Years Used Date Smoking Tobacco: Never Assessed Comments Unknown Sex and Gender Information Value Date Recorded Sex Assigned at Not on file Legal Sex Female 5:45 PM CDT Gender Identity Not on file Sexual Orientation Not on file documented as of this encounter Miscellaneous Notes * Cerner Conversion Note - [facility] Joseph ProviderMD - 11/29/2019 9:49 AM EDT [facility] Main OR IntraOp Summary Primary Physician: BRIAN COPE MD-ORT Finalized Date/Time: 11/30/19 10:44:10 Pt. Name: JAN ESPINAL D.O.B./Sex: 1950 Female Med Rec #: [id number] Physician: BRIAN COPE MD-ORT Financial #: [id number] Pt. Type: O Room/Bed: [facility]/ Admit/Disch: 11/29/19 06:27:00 - Institution: [facility] IntraOp Case Attendance Entry 1 Entry 2 Entry 3 Case Attendee BRIAN COPE RHYNE, HEATHER, MD-Brook Magana CRNA MD-ORT Role Performed Surgeon/Proceduralist, Anesthesiologist of SAHARA/Nurse Youth Corrections Officer First Record Time In 11/29/19 08:19:00 11/29/19 08:19:00 11/29/19 08:19:00 Time Out 11/29/19 09:52:00 11/29/19 09:52:00 11/29/19 09:52:00 Procedure Hip Total Anterior Hip Total Anterior Hip Total Anterior Approach(Right) Approach(Right) Approach(Right) Other Attendee Superficial Wound Closed By: Last Modified By: Jacinta Bryant, Jacinta Bryant, Jacinta Bryant, RN 11/29/19 09:52:08 RN 11/29/19 09:52:08 RN 11/29/19 09:52:08 Entry 4 Entry 5 Entry 6 Case Attendee Jacinta Bryant, RONIT CLAYTON, Magdy Macias, supervisor metalizing Emergency Room Rn Role Performed Dinkey Operator, Licensed Land Surveyor, First Scrub, First Time In 11/29/19 08:19:00 11/29/19 08:19:00 11/29/19 08:19:00 Time Out 11/29/19 09:52:00 11/29/19 09:52:00 11/29/19 09:52:00 Procedure Hip Total Anterior Hip Total Anterior Hip Total Anterior Approach(Right) Approach(Right) Approach(Right) Other Attendee Superficial Wound Closed By: Last Modified By: Jacinta Bryant Greenslate, Kristen D, Jacinta Bryant, RN 11/29/19 09:52:08 RN 11/29/19 09:52:08 RN 11/29/19 09:52:08 Entry 7 Entry 8 Entry 9 Case Attendee Luly Cavanaugh, OTHER, ATTENDEE OTHER, ATTENDEE #1 Diagnostic Air Tube Releaser Role Performed Cell Feed Department Supervisor Vendor RECHARGER Time In 11/29/19 08:19:00 11/29/19 08:19:00 11/29/19 08:19:00 Time Out 11/29/19 09:52:00 11/29/19 09:52:00 11/29/19 09:52:00 Procedure Hip Total Anterior Hip Total Anterior Hip Total Anterior Approach(Right) Approach(Right) Approach(Right) Other Attendee YONI IVAN- RECHARGER ORTHO Superficial Wound Closed By: Last Modified By: Jacinta Bryant, Jacinta Bryant, Jacinta Bryant, RN 11/29/19 09:52:08 RN 11/29/19 08:54:21 RN 11/29/19 08:54:21 [facility] IntraOp Case Attendance Audit 11/29/19 09:52:08 Outside Rigger: [id number] Modifier: [id number] <+> Time Out 1 <*> Procedure Hip Total Anterior Approach(Right) 2 <+> Time In 2 <+> Time Out 2 <*> Procedure Hip Total Anterior Approach(Right) 3 <+> Time In 3 <+> Time Out 3 <*> Procedure Hip Total Anterior Approach(Right) 4 <+> Time In 4 <+> Time Out 4 <*> Procedure Hip Total Anterior Approach(Right) 5 <+> Time In 5 <+> Time Out 5 <*> Procedure Hip Total Anterior Approach(Right) 6 <+> Time In 6 <+> Time Out 6 <*> Procedure Hip Total Anterior Approach(Right) 7 <+> Time In 7 <+> Time Out 7 <*> Procedure Hip Total Anterior Approach(Right) 8 <+> Time In 8 <+> Time Out 8 <*> Procedure Hip Total Anterior Approach(Right) 9 <+> Time In 9 <+> Time Out 9 <*> Procedure Hip Total Anterior Approach(Right) [facility] IntraOp Case Times Entry 1 Patient In Room Time 11/29/19 08:19:00 Out Room Time 11/29/19 09:52:00 Anesthesia Start Time 11/29/19 08:19:00 Stop Time 11/29/19 09:52:00 Surgery / Procedure Times Start Time 11/29/19 08:49:00 Stop Time 11/29/19 09:45:00 Last Modified By: Jacinta Bryant, DONELL 11/29/19 09:51:13 [facility] IntraOp Case Times Audit 11/29/19 09:52:07 Outside Rigger: [id number] Modifier: [id number] <+> 1 Out Room Time <+> 1 Stop Time 11/29/19 09:51:13 Outside Rigger: [id number] Modifier: [id number] <+> 1 Stop Time [facility] IntraOp Cautery Entry 1 ESU Identification Cautery Type Monopolar ESU ID Number [id number] ID Type Hospital Number Cautery Settings Cut Setting 50 Coag Setting 50 ESU Grounding Pad Ground Pad Type Adult Grounding Pad Site Left Upper Abdomen Grounding Pad Jacinta Bryant, Applied By RN Grounding Pad Site Intact, Warm, Dry Skin Condition Before Cautery Grounding Pad Site Unchanged Skin Condition After Cautery Last Modified By: Jacinat Bryant RN 11/29/19 08:54:37 [facility] IntraOp Communication Entry 1 Communication To Family/Significant other Comment START Last Modified By: Jacinta Bryant RN 11/29/19 08:55:01 [facility] IntraOp Counts Verification Entry 1 Procedure Hip Total Anterior Approach(Right) Count Info Count Type Sponge, Sharps, Miscellaneous Counts Verification Baseline/pre-procedure Sequence Count Results Not Applicable Counts Performed By Count Performed By Magdy Friend, Surgical (Scrub) Emergency Room Rn Count Performed By Jacinta Bryant (RN) RN Last Modified By: Jacinta Bryant RN 11/29/19 08:55:10 [facility] IntraOp Counts Final Entry 1 Procedure Hip Total Anterior Approach(Right) Final Count Info Count Type Sponge, Sharps, Miscellaneous Counts Verification Skin Closure/end of Sequence procedure Count Results Correct, surgeon notified Counts Performed By Count Performed By Magdy Friend, Surgical (Scrub) Emergency Room Rn Count Performed By Jacinta Bryant (RN) RN Last Modified By: Jacinta Bryant RN 11/29/19 08:55:15 [facility] IntraOp Counts Final Audit 11/29/19 09:45:33 Outside Rigger: [id number] Modifier: [id number] <*> Procedure Hip Total Anterior Approach(Right) 1 <+> Count Performed By (Scrub) 1 <+> Count Performed By (RN) [facility] IntraOp Cultures and Spec Summary Entry 1 Cultrures and Specimens Specimen Ordered: Yes Test(s) Routine/Path-Lab Requested/Final Disposition Last Modified By: Jacinta Bryant RN 11/29/19 08:55:18 [facility] IntraOp Departure from OR Entry 1 Integumentary Assessment Integumentary WDL with patient Assessment WDL specific variances Patient's Normal NEW SURGICAL INCISION: Integumentary RIGHT HIP Variance(s) Transfer/Handoff Transfer to PACU Phase I Handoff Method Phone call Post-op Transport Stretcher/Gurney Via Patient Transport Brook Mendoza CRNA, Accompanied by Jacinta Bryant RN Last Modified By: Jacinta Bryant RN 11/29/19 08:55:35 [facility] IntraOp Dressing and Packing Entry 1 Type Dressing Location OPERATIVE SITE Wound Dressing Item Occlusive dressing, Skin Closure Glue Applied By RONIT CLAYTON CSA Other Comments [facility] Last Modified By: Jacinta Bryant RN 11/29/19 08:55:39 [facility] IntraOp Fire Risk Assessment Entry 1 Fire Info Surgical Site or 0- No Incision Above the Xyphoid Open O2 Source 0- No (Mask or Cannula) Available Ignition 1- Yes (ESU, Laser, Light Source) Fire Risk 1 Assessment Score Fire Score Fire Risk Yes Assessment Complete Fire Risk Jacinta Bryant, Assessment Verified RN By Fire Risk 11/29/19 08:19:00 Assessment Verified Date/Time Fire Risk Standard Fire Yes Safety Precautions Followed Last Modified By: Jacinta Bryant RN 11/29/19 08:55:45 [facility] IntraOp General Case Social Welfare Research Worker 1 Case Information OR OR 04 [facility] Case Level 1 Room Verified Yes Wound Class I - Clean Specialty SN Orthopedic Anesthesia Type General ASA Class 2 Diagnosis Preop Diagnosis PRIMARY UNILATERAL OSTEOARTHRITIS: RIGHT HIP Postop Same As Preop No Postop Diagnosis SEE MD POSTOP NOTE Last Modified By: Jacinta Bryant RN 11/29/19 08:56:07 [facility] IntraOp Implant Log Entry 1 Entry 2 Entry 3 Type Implant (Synthetic) Implant (Synthetic) Implant (Synthetic) Implant Log Implant Type Hardware Hardware Hardware Tissue Implant Type Implant SHELL TRIDENT II TRI INSRT TRIDENT X3 0DEG D [facility] LOW PROFILE Identification [id number] Description Implant Quantity 1 1 1 Implant Site OPSITE: RIGHT HIP OPSITE: RIGHT HIP OPSITE: RIGHT HIP Implant Identification Model Number Implant Identification Serial Number Implant [id number] [facility] Identification Lot Number Implant [place] Shay:Shay Penalozayker:Shay Identification Orthopaedics Orthopaedics Traveling Storekeeper Name: Implant [id number] Identification Catalog Number Implant Size 50MM 36MM 6.5X25MM Implant Has an Yes Yes Yes Expiration Date Implant Expiration 05/27/24 06/13/24 05/23/24 Date Wasted Radioactive Material Time Implanted Tissue Implant Continue for Tissue Implant Documentation Tissue Identification Number Graft Prep Per Traveling Storekeeper Instructions: Tissue Preparation Method: Reconstitution Solution: Reconstitution Solution Lot Number Reconstitution Solution Expiration Date: Thawing Solution Thawing Solution Lot Number Thawing Solution Expiration Date Preparation Materials, Other Preparation Materials, Other Lot Number Preparation Materials, Other Expiration Date Tissue Prepared/Processed By Traveling Storekeeper Paperwork Completed Implant Type Comment Last Modified By: Jacinta Bryant, Jacinta Bryant, Jacinta Bryant, RN 11/29/19 09:14:49 RN 11/29/19 09:14:49 RN 11/29/19 09:14:49 Entry 4 Entry 5 Entry 6 Type Implant (Synthetic) Implant (Synthetic) Implant (Synthetic) Implant Log Implant Type Hardware Hardware Hardware Tissue Implant Type Implant SCR LOW PROFILE HEAD FEM 36MM BIOLOX HIP STEM ACCOLADE II Identification [id number] [id number] Description Implant Quantity 1 1 1 Implant Site OPSITE: RIGHT HIP OPSITE: RIGHT HIP OPSITE: RIGHT HIP Implant Identification Model Number Implant Identification Serial Number Implant 2RL [id number] Identification Lot Number Implant Shay:Shay Shay:Shay Penalozayker:Shay Identification Orthopaedics Orthopaedics Orthopaedics Traveling Storekeeper Name: Implant [id number] Identification Catalog Number Implant Size 6.5X25MM 36MM 4 Implant Has an Yes Yes Yes Expiration Date Implant Expiration 05/24/24 10/09/24 05/07/24 Date Wasted Radioactive Material Time Implanted Tissue Implant Continue for Tissue Implant Documentation Tissue Identification Number Graft Prep Per Traveling Storekeeper Instructions: Tissue Preparation Method: Reconstitution Solution: Reconstitution Solution Lot Number Reconstitution Solution Expiration Date: Thawing Solution Thawing Solution Lot Number Thawing Solution Expiration Date Preparation Materials, Other Preparation Materials, Other Lot Number Preparation Materials, Other Expiration Date Tissue Prepared/Processed By Traveling Storekeeper Paperwork Completed Implant Type Comment Last Modified By: Jacinta Bryant, Jacinta Bryant, Jacinta Bryant RN 11/29/19 09:14:49 RN 11/29/19 09:45:25 RN 11/29/19 09:45:25 [facility] IntraOp Implant Log Audit 11/29/19 09:45:25 Outside Rigger: [id number] Modifier: [id number] <+> 5 Implant Identification Description <+> 5 Implant Identification Lot Number <+> 5 Implant Identification Traveling Storekeeper Name: <+> 5 Implant Size <+> 5 Implant Expiration Date <+> 5 Implant Site <+> 5 Implant Quantity <+> 5 Implant Identification Catalog Number <+> 5 Implant Type <+> 5 Implant Has an Expiration Date <+> 5 Type <+> 6 Implant Identification Description <+> 6 Implant Identification Lot Number <+> 6 Implant Identification Traveling Storekeeper Name: <+> 6 Implant Size <+> 6 Implant Expiration Date <+> 6 Implant Site <+> 6 Implant Quantity <+> 6 Implant Identification Catalog Number <+> 6 Implant Type <+> 6 Implant Has an Expiration Date <+> 6 Type [facility] IntraOp Intraoperative Assessment Entry 1 Handoff Method Bedside/Face to face, Online nursing summary Valid History / Yes Physical in Chart Preoperative Yes Checklist Reviewed/Evaluated Allergies Reviewed Yes Patient is Latex No Sensitive Isolation Not applicable Precautions Noted Level of WDL Consciousness (WDL = Alert, Oriented to Person, Place, and Time) Skin Assessment Yes Verified Present Upon IVs Arrival to OR Last Modified By: Jacinta Bryant RN 11/29/19 08:56:12 [facility] IntraOp Intraoperative Equipment Entry 1 Type Equipment Equipment Equipment Nghia Suction System ID Number [id number] Setting HIGH Intraop Monitoring Electrocardiogram Five lead placement (ECG) Electrode Placement Blood Pressure Non-Invasive BP Device Source Blood Pressure Arm, right upper Location Pulse Oximeter Hand, left Probe Site Antiembolic Devices Antiembolic Devices Antiembolic hose, thigh high Antiembolic Device Left Location Scopes Photo/Video Documentation Last Modified By: Jacinta Bryant RN 11/29/19 08:56:28 [facility] IntraOp Medication Admin Entry 1 Entry 2 Medication/Irrigant Bacitracin 50,00units vancomycin 1Gm vial - powder vial [id number] Combo Med List 1 - Combo Med Time Administered Route of ADDED TO IRRIGATION TOPICAL Administration Dose Dose 73737 1 Unit of Measure units gram Volume Administered By BRIAN COPE KARTHIKEYAN, THARUN, MD-ORKareem [place] Procedure Irrigation Irrigant Volume In Irrigant Volume Out Last Modified By: Jacinta Bryant, Jacinta Bryant RN 11/29/19 08:56:40 RN 11/29/19 08:56:40 [facility] IntraOp Patient Positioning Entry 1 Procedure Hip Total Anterior Approach(Right) Body Position Supine Left Arm Position Secured on padded arm board Right Arm Position Secured on padded arm board Left Leg Position Secured in Leg Yates Right Leg Position Secured in Leg Yates Feet Uncrossed Yes Pressure Points Yes Checked Positioning Devices Arm Board, Head Rest, Pad, Arm, Safety Strap, Arm(s), Stirrups/Leg Yates, Boot, Pad, Elbow Device Position hana table Positioned By Jacinta Bryant, DONELL, RONIT CLAYTON CSA, BRIAN COPE MD-ORT, Brook Mendoza, AMMONIA STILL OPERATOR, OTHER, ATTENDEE #1 Position Verified Positioning Yes Verified by Anesthesia Positioning Yes Verified by Surgeon Last Modified By: Jacinta Bryant RN 11/29/19 08:56:50 [facility] IntraOp Sign In Entry 1 Patient, Site, Yes Procedure Identified Surgical Consent Yes Confirmed Relevant Surgical Yes Documents Available Surgical Site Yes Marked by person performing procedure Anesthesia Machine Yes Check Completed Medication Checks Yes Completed Allergies Yes Airway Difficult Yes Airway/Aspiration Risk Difficult Yes Airway/Aspiration Intervention Equipment Available Blood Loss Risk Yes Blood Loss Yes Intervention Equipment Prepared and Ready Blood Identifiers Not applicable Verified Per Policy Hypothermia Risk Yes Warming Measures Yes Taken Last Modified By: Jacinta Bryant RN 11/29/19 08:56:55 [facility] IntraOp Sign Out Entry 1 RN Confirmation Surgical Yes Procedure(s) Identified Instrument, Sponge Yes and Sharps Counts Correct/Documented Equipment Problems N/A Documented Specimen Labeled Yes Correctly Urinary Catheter N/A Documented in IView Griffith Patient Yes Recovery Concerns Reviewed with Anesthesia Provider, Surgeon and RN Griffith Patient Yes Management Concerns Reviewed with Anesthesia Provider, Surgeon and RN Safety Checklist Yes Elements Complete? RN Sign Out Jacinta Bryant, Signature RN RN Sign Out 11/29/19 09:51:00 Signature Date/Time Plan of Care Outcome - Fire Risk OUTCOME STATEMENT: Goal met Patient is free from injury related to surgical fire Plan of Care Outcome - Pt Positioning OUTCOME STATEMENT: Goal met Absence of signs and symptoms of positioning injury. Plan of Care Outcome - Skin Prep OUTCOME STATEMENT: Goal met Intraoperative care is consistent with measures to prevent infection Plan of Care Outcome - Xray/Images OUTCOME STATEMENT: Goal met Absence of observable signs or symptoms of radiation injury Plan of Care Outcome - Counts OUTCOME STATEMENT: Goal met Absence of signs and symptoms of injury related to extraneous objects Last Modified By: Jacinta Bryant RN 11/29/19 08:57:00 [facility] IntraOp Sign Out Audit 11/29/19 09:52:04 Outside Rigger: [id number] Modifier: [id number] <+> 1 RN Sign Out Signature Date/Time [facility] IntraOp Skin Prep Entry 1 Procedure Hip Total Anterior Approach(Right) Prescribed Yes Pre-Surgical Prep Completed Prep Area OPERATIVE HIP TO KNEE Intraop Prep Integumentary WDL with patient Assessment WDL specific variances WDL Patient BRUISING NOTED ON Exceptions PATIENT LEFT FLANK PRIOR TO ENTRY INTO OPERATING ROOM Prep Agents Alcohol, Chloraprep, DuraPrep, Chlorhexadine gluconate Prep by Jacinta Bryant RN Hair Removal Methods No hair removal performed Last Modified By: Jacinta Bryant RN 11/29/19 08:57:27 [facility] IntraOp Surgical Procedures Entry 1 Procedure Hip Total Anterior Approach Modifiers Right Additional RIGHT DIRECT ANTERIOR Procedure TOTAL HIP ARTHROPLASTY Description Primary Procedure Yes Primary Surgeon BRIAN COPE MD-ORT Start 11/29/19 08:49:00 Stop 11/29/19 09:45:00 Anesthesia Type General Specialty SN Orthopedic Wound Class I - Clean Last Modified By: Jacinta Bryant RN 11/29/19 08:57:36 [facility] IntraOp Surgical Procedures Audit 11/29/19 09:51:19 Outside Rigger: [id number] Modifier: [id number] <+> 1 Stop [facility] IntraOp Temp Regulation Devices Entry 1 Temp Regulation Temperature Forced Air Warming Regulation Device device, Warm blankets Temperature 30729 Regulation Device Serial/Unit Number Temperature Upper body Regulation Site Temperature Device 43 DEGREES CELCIUS Setting Temperature Brook Mendoza CRNA Regulation Device Applied by Last Modified By: Jacinta Bryant RN 11/29/19 08:59:06 [facility] IntraOP Time Out Entry 1 Procedure to be Hip Total Anterior Performed Approach(Right) Time Out Time Out Pause Time 11/29/19 08:48:00 All activity Yes suspended (unless life threatening emergency) Team Verbally Correct patient Confirms Information identity, Correct side and site are marked, Consent form is present and accurate, Agreement on the procedure to be done, Correct patient position, Relevant images/results properly labeled/appropriately displayed, Confirm antibiotics have been administered, Confirm the skin prep has dried, Confirm prosthesis/implant/devic e is present, Performed in location of procedure after prepped/draped Antibiotic Yes Prophylaxis Administered Or In Progress Within the Last 60 Minutes Beta Renea Yes Administered Venous Yes Thromboembolism Prophylaxis Required Anticipated Critical Events Surgeon None expected Anesthesia Provider None expected Nursing Assures Sterility of instruments, Implant Availability Essential Imaging Yes Labeled and Displayed Last Modified By: Jacinta Bryant RN 11/29/19 08:59:27 [facility] IntraOp X-Ray and Images Entry 1 X-Ray/Imaging Type Fluoroscopy Fluoroscopy Type C-Arm Site OPERATIVE HIP Assistant Golf Professional Name Luly Cavanaugh, Diagnostic Air Tube Releaser Protective Devices No Used Last Modified By: Jacinta Bryant RN 11/29/19 08:59:35 Case Comments <None> Finalized By: CAROLINA GONZALEZ Document Signatures Signed By: Jacinta Bryant RN 11/29/19 09:52 CAROLINA GONZALEZ 11/30/19 10:44 Unfinalized History Date/Time Username Reason for Unfinalizing Freetext Reason for Unfinalizing 11/30/19 10:41 WATTSDR Correct Billing documented in this encounter Plan of Treatment Not on file documented as of this encounter Visit Diagnoses Not on filedocumented in this encounter
--- OUTSIDE RECORDS SUMMARY | 2025-01-31 14:28 | XMS_ITS | Data Portability ---
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 The patient has failed conservative measures including NSAIDs, activity modification, etc. The patient has pain daily, affecting his/her activities of daily living. They wish to proceed with total hip arthroplasty, which I believe to be reasonable. We reviewed the risks, benefits, and alternatives to hip replacement surgery. We discussed the risk of infection, fracture, neurovascular injury, leg length discrepancy, instability, aseptic loosening, and component wear. We discussed the risk of medical complications, including but not limited to, VTE, pulmonary complications, cardiac complications, and stroke. She does understand that the excellent result she has had on her left hip, is not a guarantee of the same result on the right. All questions were answered to the best of my ability. Surgery date: 11-29-19 Approach: ANTERIOR Special implants: A2 Pre-op clearance: PASS DVT prophylaxis: ASA, PATRICIA Admission status: OUTPATIENT Discharge plan: overnight admission to [facility] PT: home health Allergies: PCN Skin testing: No A total of 25 min of [id number] time was spent with the patient during this encounter, with >50% spent on counseling, review of imaging, review of records, discussion of treatment options and their attendant risks/benefits, and coordination of care. [email or web address] Not available 11/16/2019 18:58:31 01/11/2020 01/11/2020 ASSESSMENT: 6 weeks right anterior JAYNA, mild DJD right knee PLAN: Right JAYNA doing extremely well. Okay to submerge incision. Continue with home exercise program. No restrictions going forward. Routine follow-up in 1 year. I suspect mild arthritis as the cause of her right knee pain. We reviewed conservative treatment options. No indication for advanced imaging at this juncture. I recommend CSI, and NSAIDs as needed. She understands we can repeat the injections as often as every 3 months, and will follow-up as needed for this particular condition. [email or web address] Not available 01/11/2020 14:40:52 Plan of Treatment Reminders Order Date Submit Date Provider Last Modified By Organization Details Last Modified Time Details Appointments None record ed. Lab None record ed. Referral None record ed. Procedures None record ed. Surgeries None record ed. Imaging XR, hip, unilat eral, 2 or 3 view - AP/LAT (affec patricia hip), AP pelvis - bring to room 4 2019 020 [email or web address] Not available 0 16:28:42 Medication Orders None record ed. Patient TargetsNo targets recorded. Patient Instructions Encounter Date Encounter Id Patient Instructions Last Modified By Organization Details Last Modified Time 11/16/2019 [id number] hip arthritis: care instructions [email or web address] Not available 11/16/2019 18:58:42 osteoarthritis: care instructions [email or web address] Not available 11/16/2019 18:58:42 01/11/2020 [id number] knee arthritis: care instructions [email or web address] Not available 01/11/2020 14:41:46 Reason for Referral None Reported. Results Created Date Observation Date Name Description Value Unit Range Abnormal Flag Note LastModifiedBy Organization Detail LastModifiedTime 11/16/19 20 11/16/2019 XR, hip, unila teral , 2 or 3 view [facility] [place] [facility] [address] [place] [address] Josey barron Name: MARY ESPINAL Darbychelly anderson : [phone] Josey barron Orderi ng Provid er: BRIAN GILES EXAM DATE: 2019 EXAM: XR RT HIP UNILAT ERAL, 2 OR 3 VWS COMPAR SHITAL: 2016 HISTOR Y: Right hip pain FINDIN GS: Narrow ing of the weight bearin g surfac e of the right hip with degene rative spurri ng and subcho ndral cyst format ion. These change s are clearl y progre ssed from the prior study. No fractu re or disloc ation. Grossl y uncomp licate d appear ing left total hip arthro plasty . IMPRES MALINDA: Progre ssive modera te to severe DJD of the right hip Interp reted By: Ronit Gamino MD Electr onical ly Signed By: Ronit Gamino MD on 020 1:08 PM [email or web address] [facility] [address] , [place], [address], 11/19/2019 18:43:45 12/01/1911/29/2019 fluor oscop y (PROC ) No observ ation record ed. [facility] [address] [address] , [place], [address], 12/05/2019 12:22:28 12/20/1912/20/2019 XR, hip, unila teral , 2 or [facility] [address] [place] [address] Patichelly t Name: MARY ESPINAL Darbychelly barron : [phone] Patichelly barron Orderi ng Provid er: Kathy RIVERA SON EXAM DATE: 2019 EXAM: XR RT HIP UNILAT ERAL, 2 OR 3 VWS COMPAR SHITAL: 020 HISTOR Y: Follow -up of prior surger jamilah TORO GS: There has been interv al placem ent of a right hip total arthro plasty . There is no eviden ce of loosen ing. No fractu re is identi fied. There is also a total hip arthro plasty in the contra latera l hip. There are mild degene rative change s in the SI joints . IMPRES MALINDA: 1. There is a right hip total arthro plasty in place withou t eviden ce of loosen ing. Interp reted By: Eloisa baez MD Electr onical ly Signed By: Eloisa baez MD on 020 3:19 PM [email or web address] [facility] [address], [place], [address], 12/22/2019 12:03:52 01/11/20 20 01/11/2020 XR, knee, 4 or more view [facility] [address] [place] [address] Josey barron Name: MARY barron : [phone] Josey barron Orderi ng Provid er: BRIAN TEVINIRIS JACQUELINMARCIE EXAM DATE: 2019 EXAM: XR RT KNEE COMPLE TE, 4 OR MORE VWS COMPAR SHITAL: None. HISTOR Y: Right knee pain. FINDIN GS: No fractu re is identi fied. There are mild degene rative change s in the right knee. There is mild medial joint space loss. There is mild margin al spurri ng. There is enthes opathi c spurri ng along the tibial tuberc le. The bones are mildly osteop enic. There is a possib le lucent lesion along the proxim al tibial epiphy sis. Contra latera l knee: There are mild degene rative change s. There is prior ACL repair . IMPRES MALINDA: 1. There are mild degene rative change s in the right knee. 2. There is a possib le lytic lesion along the proxim al tibial epiphy sis, but this may repres ent degene rative change . Interp reted By: Eloisa baez MD Electr onical ly Signed By: Eloisa baez MD on 2019 1:13 PM [email or web address] [facility] [address], [place], [address], 01/14/2020 19:51:03 01/11/2001/11/2020 XR, pelvi s, 1 or 2 view [facility] [address] [place] [address] Josey t Name: MARY barron : [phone] Josey barron Orderi ng Provid er: BRIAN GILES EXAM DATE: 2019 EXAM: XR PELVIS AP ONLY COMPAR SHITAL: 020 HISTOR Y: Follow -up of prior surger y. FINDIN GS: There are bilate ral hip total arthro plasti es. There is no eviden ce of loosen ing. A lucenc y projec ts distal ly from the tip of the femora l stem of the right hip arthro plasty . Threse are mild degene rative change s in the SI joints . IMPRES MALINDA: 1. There are bilate ral hip total arthro plasti es in place withou t eviden ce of loosen ing. 2. There is a lucenc y projec ting distal to the tip of the femora l stem of the right hip arthro plasty . Sangeethae r, this is not specif ic for fractu re. Interp reted By: Eloisa baez MD Electr onical ly Signed By: Eloisa baez MD on 2019 1:17 PM [email or web address] [facility] [address], [place], [address], 01/14/2020 19:50:59 08/07/19 21 08/06/2020 XR, hip, unila teral , 2 or 3 view [facility] [place] [facility] [address] [place] [address] Josey barron Name: MARY barron : [phone] Josey barron Orderi ng Provid er: RONIT DINERO EXAM DATE: 2020 EXAM: XR RT HIP UNILAT ERAL, 2 OR 3 VWS COMPAR SHITAL: 2019 HISTOR Y: Hip pain. Surger y follow -up FINDIN GS: Again noted are bilate ral total hip replac ements . Stable appear ance with no interv al compli cation . There is no hardwa re loosen ing or eviden ce of fractu re IMPRES MALINDA: Stable uncomp licate d appear ing bilate ral total hip arthro plasti es Interp reted By: Ronit Gamino MD Electr onical ly Signed By: Ronit Gamino MD on 021 4:07 PM [email or web address] [facility] [address] , [place], [address], 08/07/2020 08:38:47 Result Notes Documentation Provider Name and Address Organization Details Recorded Time Xr, Hip, Unilateral, 2 Or 3 View : [facility] [address] [place] [address] Patient Name: MARY ESPINAL Patient : 1950 Patient Ordering Provider: BRIAN COPE EXAM DATE: 11/16/2019 EXAM: XR RT HIP UNILATERAL, 2 OR 3 VWS COMPARISON: 01/19/2017 HISTORY: Right hip pain FINDINGS: Narrowing of the weightbearing surface of the right hip with degenerative spurring and subchondral cyst formation. These changes are clearly progressed from the prior study. No fracture or dislocation. Grossly uncomplicated appearing left total hip arthroplasty. IMPRESSION: Progressive moderate to severe DJD of the right hip Interpreted By: Ronit Gamino MD N COPE MD [address] [place] [address], [phone], [facility] 11/19/2019 18:43:45 Xr, Hip, Unilateral, 2 Or 3 View : [facility] [address] [place] [address] Patient Name: MARY ESPINAL Patient : 1950 Patient Ordering Provider: Kathy SHAFER EXAM DATE: 12/20/2019 EXAM: XR RT HIP UNILATERAL, 2 OR 3 VWS COMPARISON: 11/16/2019 HISTORY: Follow-up of prior surgery. FINDINGS: There has been interval placement of a right hip total arthroplasty. There is no evidence of loosening. No fracture is identified. There is also a total hip arthroplasty in the contralateral hip. There are mild degenerative changes in the SI joints. IMPRESSION: 1. There is a right hip total arthroplasty in place without evidence of loosening. Interpreted By: Claudio Harding MD Kathy SHAFER PA-C [address] [place], [address], [facility] 12/22/2019 12:03:52 Xr, Knee, 4 Or More View : [facility] [address] [place] [address] Patient Name: MARY ESPINAL Patient : 1950 Patient Ordering Provider: BRIAN COPE EXAM DATE: 01/11/2020 EXAM: XR RT KNEE COMPLETE, 4 OR MORE VWS COMPARISON: None. HISTORY: Right knee pain. FINDINGS: No fracture is identified. There are mild degenerative changes in the right knee. There is mild medial joint space loss. There is mild marginal spurring. There is enthesopathic spurring along the tibial tubercle. The bones are mildly osteopenic. There is a possible lucent lesion along the proximal tibial epiphysis. Contralateral knee: There are mild degenerative changes. There is prior ACL repair. IMPRESSION: 1. There are mild degenerative changes in the right knee. 2. There is a possible lytic lesion along the proximal tibial epiphysis, but this may represent degenerative change. Interpreted By: Claudio Harding MD N COPE MD [address] [place], [address], [facility] 01/14/2020 19:51:03 Xr, Pelvis, 1 Or 2 View : [facility] [address] [place] [address] Patient Name: MARY ESPINAL Patient : 1950 Patient Ordering Provider: BRIAN COPE EXAM DATE: 01/11/2020 EXAM: XR PELVIS AP ONLY COMPARISON: 12/20/2019 HISTORY: Follow-up of prior surgery. FINDINGS: There are bilateral hip total arthroplasties. There is no evidence of loosening. A lucency projects distally from the tip of the femoral stem of the right hip arthroplasty. Threse are mild degenerative changes in the SI joints. IMPRESSION: 1. There are bilateral hip total arthroplasties in place without evidence of loosening. 2. There is a lucency projecting distal to the tip of the femoral stem of the right hip arthroplasty. However, this is not specific for fracture. Interpreted By: Claudio Harding MD N COPE MD [address] [place] [address], [phone], [facility] 01/14/2020 19:50:59 Xr, Hip, Unilateral, 2 Or 3 View : [facility] [address] [place] [address] Patient Name: MARY ESPINAL Patient : 1950 Patient Ordering Provider: RONIT WHITE EXAM DATE: 08/06/2020 EXAM: XR RT HIP UNILATERAL, 2 OR 3 VWS COMPARISON: 01/11/2020 HISTORY: Hip pain. Surgery follow-up FINDINGS: Again noted are bilateral total hip replacements. Stable appearance with no interval complication. There is no hardware loosening or evidence of fracture IMPRESSION: Stable uncomplicated appearing bilateral total hip arthroplasties Interpreted By: Ronit Gamino MD T WHITE PA-C [address] [place] [address], [phone], [facility] 08/07/2020 08:38:47 Problems Name Problem SNOMED Code Status Onset Date Resolution Date Notes Provider Name and Address Organization Details Recorded Time Idiopathi c osteoarth ritis 535385138 Active 2015 From Automated Load;Provi cristin: Ruthann Shafer;Statu s: Active Not Available [facility] 05:07:34 Problem Notes None recorded. Procedures Surgical History Date Name Laterality Status Provider Name and Address Organization Details Recorded Time 01/11/20 20 Injection - Joint/Bursa, Major completed BRIAN COPE MD [address] [place], [address], [facility] 01/11/2020 14:37:32 11/29/19 20 total replacement of hip completed Jenny Israel [facility] 12/20/2019 14:48:26 01/20/20 17 Injection - Joint/Bursa, Major completed BRIAN COPE MD [address] [place] [address], [phone], [facility] 01/19/2017 13:34:45 11/20/19 16 Total hip arthroplasty completed Jaimee Garduno [facility] 07/20/2016 15:29:56 Imaging Results None recorded. Procedure Notes None recorded. Medical Equipment None Reported. Allergies Allergen ID Allergen Name Allergen Category Reaction Reaction Severity Criticality Documentation Date Start Date Code Code System Note Provider Name and Address Organization Details Recorded Time 928939 Product containin g penicilli n (product) medicatio n Not available Not available Not available 02/21/20162015 89575 8001 SNOMED Comme nt: Creat ed By: Cherry desai; Creat ed Date: 016 11:24 :45 AM; Not Available [facility] 6 10:01:59 Medications Name Sig Start Date Stop Date Status Note LastModified by Organization Details LastModified Time cyclobenz aprine 10 mg tablet active Medicatio n Descripti on: cyclobenz aprine; refills:0 Not Available Not Available Not Available simvastat in 10 mg tablet 11/15 completed Medicatio n Descripti on: simvastat in; refills:0 Not Available Not Available Not Available losartan 100 mg tablet active Medicatio n Descripti on: losartan; refills:0 Not Available Not Available Not Available Fiber-Tab s 625 mg tablet active Medicatio n Descripti on: polycarbo lonny; refills:0 Not Available Not Available Not Available ezetimibe 10 mg tablet Take 1 tablet every day by oral route. active Not Available Not Available No t Available potassium chloride active Medicatio n Descripti on: potassium chloride; refills:0 Not Available Not Available Not Available beta carotene active Medicatio n Descripti on: beta-sellers tene; refills:0 Not Available Not Available Not Available vitamin E active Medicatio n Descripti on: vitamin E; refills:0 Not Available Not Available Not Available bisoprolo l-hydroch lorothiaz nader active Medicatio n Descripti on: bisoprolo l-hydroch lorothiaz nader; refills:0 Not Available Not Available Not Available Calcium Citrate + active Medicatio n Descripti on: calcium citrate; refills:0 Not Available Not Available Not Available Vitamin D3 active Medicatio n Descripti on: cholecalc iferol; refills:0 Not Available Not Available Not Available Mobic active Medicatio n Descripti on: meloxicam ; refills:0 Not Available Not Available Not Available multivita min active Medicatio n Descripti on: multivita min; refills:0 Not Available Not Available Not Available Probiotic Formula 10 billion cell(2 billion ea) capsule active Medicatio n Descripti on: bifidobac terium-la ctobacill us; refills:0 Not Available Not Available Not Available Vitals Date Recorded Body height Body mass index (BMI) Body weight Provider Name and Address Organization Details Last Updated DateTime 08/06/2020 63.5 cm 129.4 kg/m2 08695.12 g Jenny [facility] 08/06/2020 15:36:52 Date Recorded Body height Body mass index (BMI) Body weight Pain severity - 0-10 verbal numeric rating [Score] - Reported Provider Name and Address Organization Details Last Updated DateTime 11/16/2019 63.5 cm 128.2 kg/m2 98694.53 g 7 Joleen Holliday [facility] 11/16/2019 13:04:48 Date Recorded Body height Body mass index (BMI) Body weight Provider Name and Address Organization Details Last Updated DateTime 12/20/2019 63.5 cm 129.4 kg/m2 08406.12 g Jenny Israel [facility] 12/20/2019 14:47:43 Date Recorded Body height Body mass index (BMI) Body weight Pain severity - 0-10 verbal numeric rating [Score] - Reported Provider Name and Address Organization Details Last Updated DateTime 01/11/2020 63.5 cm 129.4 kg/m2 45215.12 g 5 Joleen Holliday [facility] 01/11/2020 14:07:50 Social History Question Answer Notes LastModified by Organizat ion Details LastModified Time Tobacco Smoking Status [facility] 05/19/2016 16:08:37 Accident Related Injury No [email or web address] Information not available 05/19/2016 What Is Your Level Of Caffeine Consumption? Occasional [email or web address] Information not available 05/19/2016 Which Of Your Hands Is Dominant? Right [email or web address] Information not available 05/19/2016 Have You Been Treated For This Problem Before? No [email or web address] Information not available 05/19/2016 Will This Be Filed As Workers' Compensation? No Information not available 05/19/2016 Marital Status Informati on not available 05/19/2016 What Was The Date Of Your Most Recent Tobacco Screening? 01/19/2017 Information not available 05/16/2019 Has Tobacco Cessation Counseling Been Provided? No [email or web address] Information not available 05/19/2016 Work Related Injury? No [email or web address] Information not available 05/19/2016 Sex: Unknown Functional Status Question Answer Note LastModified by Organizat ion Details LastModified Time What is your level of alcohol consumption? Occasional [email or web address] Information not available 05/19/2016 Are you currently employed? No Information not available 05/19/2016 Mental Status None recorded. Family History Nothing Reported. Medical History Condition Response Allergies/Hayfever Y Anxiety/Depression N Other N Gout N Thyroid Disease N Kidney Stones N Heart Conditions N Hernia N Migraines N COPD N Glaucoma N Pneumonia Y Skin Problems N Immune System Disorder N Anesthesia Complications N Heart Attack ([place]) N Mental Illness N Neurological Problems N Diabetes N Rheumatic Fever N Bleeding Disorder N Arthritis Y Seizures/Epilepsy N Blood Clot N Tuberculosis N Genetic Disorder N AIDS/HIV N Cancer N Stroke N Asthma N Blood Thinners N Alcohol Overuse/Alcohol Abuse N Sleep Apnea N High Cholesterol Y Liver Disease N Included as Review of Systems N Hypertension Y Osteoporosis Y Kidney Disease N Gynecological HistoryNo gynecological history recorded. Obstetrics History GPAL:G 0 P 0 0 0 0 Past Encounters Encounter ID Performer Location Encounter Start Date Encounter Closed Date Diagnosis/Indication Diagnosis SNOMED-CT Code Diagnosis ICD10 Code Diagnosis IMO Codes Diagnosis Note [id number] Kathy SHAFER PA-C [facility] [address] [place] , [place] [address] 05/19/2016 15:30:52 05/19/2016 16:58:57 Total replacement of hip 36332885 Z96.649 Greater tr ochanteric pain syndrome 1501151 M70.60 [id number] C FRED SHAFER PA-C [facility] [address] [place] [address] 07/20/2016 15:13:20 07/20/2016 15:53:04 History of total replacement of left hip joint 1968883159 791294 Z96.642 ease up on workout, not try to keep pace w/ who is fitness fanatic [id number] BRIAN Schreiber MD [facility] [address] [address] 08/18/2016 15:16:07 08/18/2016 15:57:10 Total replacement of hip 86760184 Z96.649 Greater tr ochanteric pain syndrome 2803791 M70.60 [id number] BRIAN Schreiber MD [facility] [address] [place] [address] 01/19/2017 11:51:13 01/19/2017 13:31:26 Total replacement of hip 56869198 Z96.642 Greater tr ochanteric pain syndrome 2073280 M70.62 [id number] BRIAN Schreiber MD [facility] [address] [address] 11/16/2019 12:34:27 11/16/2019 15:44:56 Pain of hip region 64536909 M25.551 Osteoarthritis of hip 23 4645241 M16.9 [id number] BRIAN Schreiber MD SURGERY SCHEDULE [address] [place] [address] 11/29/2019 13:20:20 12/01/2019 15:22:42 [id number] Kathy SHAFER PA-C [facility] [address] [address] 12/20/2019 14:39:22 12/20/2019 15:37:49 Postoperative care 578795483 Z48.89 Okay to get incision wet. Do not submerge or mechanical ly wash. Ambulating quite well without cane therefore okay to discontinu e. Continue PATRICIA hose additional 3 weeks. Encouraged outpatient physical therapy. Patient states has multiple comorbidit ies and is not willing to risk bringing some infection into the house with the pandemic. She understand s the ideal scenario would be outpatient PT however being respectful of her concerns okay to continue home health. Follow-up in 3 weeks with Brian schreiber M.D. [id number] BRIAN Schreiber MD [facility] [address] [address] 01/11/2020 12:46:33 01/11/2020 14:33:26 History of total hip arthroplasty 9518279857 06 Z96.649 Osteoarthr itis of knee 289826905 M17.9 [id number] RONIT WHITE PA-C [facility] [address] [address] 08/06/2020 15:14:07 08/06/2020 16:24:13 History of total hip arthroplasty 1022658915 06 Z96.641 1. Patient is experienci ng mild discomfort along the incision but not into the groin or musculatur e . X-rays show well fixated hip arthroplas ties bilateral. I do not believe this is any complicati on following surgery. I would like for patient to continue with Tylenol and ibuprofen as needed. Follow-up in 3 months. Health Concerns Section Related Observation LastModified by Organization Detai ls LastModified Time None Recorded Concern Status LastModified by Organization Details LastModified Time None Recorded Advance Directives Directive None Recorded Payers Insurance Date Sequence Insurance Name Policy Number Policy Yates Covered Member ID Yates Member ID Guarantor Name 02/21/2020 1 [place] Mary Espinal [id number] Mary Espinal 02/21/2020 2 [place] [id number] Mary Espinal [id number] Mary Espinal 02/09/2017 2 [place] Mary Espinal 08/06/2020 1 [facility] (MEDICARE REPLACEMENT/A DVANTAGE - PPO) [id number] Mary Espinal [id number] Mary Espinal Notes Date Note Type Note Provider Name and Address Organization Details Recorded Time 11/16/2019 text/html ROS as noted in the HPI 11-16-19: Ms. Espinal is well known to us from a left anterior JAYNA performed in 2016. Although she has struggled periodically with trochanteric bursitis on that side, she has generally done quite well and is pleased with her result. She presents today with a new issue of right hip pain. 1 year history of RIGHT hip pain. No specific trauma or other inciting event. Complains of primarily groin pain. No thigh pain. Occasional trochanteric pain. Occasional mechanical symptoms. Symptoms exacerbated by ascending/descendi ng stairs, prolonged weight bearing, and arising from a seated position. Overall, symptoms similar to what she experienced on the left side, prior to JAYNA. Pain/difficulty donning socks/shoes: yes Low back pain: occasional Radicular symptoms: none Rates the overall complement of pain at 7/10. Pain daily. Denies night/rest pain. Has been managed with NSAIDs (Mobic), marginal relief. No recent PT. No history of intra-articular or trochanteric injections. No history of surgery on the R hip. PMH otherwise benign. No history of diabetes or CAD. No personal or family history of VTE. Nonsmoker. 01-19-17: Ms. Espinal returns today to discuss her left trochanteric hip pain. She is about a year out from her anterior total hip. At our last visit, we had discussed trochanteric injections. At that point she felt like she was getting better and politely deferred. Today she states that her pain is certainly present. She wishes to revisit the idea of the steroid injection. Otherwise, her left anterior total hip continues to function extremely well. She denies any significant component of groin or thigh pain. BRIAN COPE MD [facility] [place], [address], [facility] 11/16/2019 18:58:45 12/20/2019 text/html Patient is 3 weeks s/p R direct anterior JAYNA. 11/29/2019 Pain is 4/10 more so at night, she has been unable to get comfortable, she has been trying to lay on the right side. Patient is wearing patricia hose, patient removed dressing and states no conerns with incision. She does elevate leg with relief of swelling. The patient does not perceive a variation in leg length. Currently taking 3-4 doses per day of narcotic. Ambulating with cane PT: home health Denies fevers, chills, or wound drainage. They do not request a refill of pain medicine. Operative cultures Not Obtained C FRED SHAFER PA-C [address] [place], [address], [facility] 12/20/2019 15:37:18 01/11/2020 text/html ROS as noted in the HPI 01-11-20 Patient is 6 weeks s/p R direct anterior JAYNA. Pain is improving The patient does not perceive a variation in leg length. Currently taking no doses per day of narcotic. Ambulating with no assistive device PT: HEP Denies fevers, chills, or wound drainage. They do not request a refill of pain medicine. Ms. Espinal is also reporting some right knee pain, which has been going on for the past 6 weeks or so, since surgery. She denies any specific trauma. She reports medial based knee pain, with no mechanical symptoms. She rates her pain at 6/10. In daily, but not quite with every step. No formal treatment on it from us. No history of steroid injections. No physical therapy dedicated to the knee. No braces. BRIAN COPE MD [address] [place], [address], [facility] 01/11/2020 14:41:49 08/06/2020 text/html ROS as noted in the HPI 08-06-20 Patient is 8 months S/P R DaTHA . She has been experiencing random sharp pain and sore to touch to thigh. She averages pain when 6/10 when pain occurs. 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 She denies fall or trauma. She is taking ibuprofen and tylenol at night PRN with marginal benefit. 01-11-20 Patient is 6 weeks s/p R direct anterior JAYNA. Pain is improving The patient does not perceive a variation in leg length. Currently taking no doses per day of narcotic. Ambulating with no assistive device PT: HEP Denies fevers, chills, or wound drainage. They do not request a refill of pain medicine. Ms. Espinal is also reporting some right knee pain, which has been going on for the past 6 weeks or so, since surgery. She denies any specific trauma. She reports medial based knee pain, with no mechanical symptoms. She rates her pain at 6/10. In daily, but not quite with every step. No formal treatment on it from us. No history of steroid injections. No physical therapy dedicated to the knee. No braces. RONIT WHITE PA-C [facility] [place], [address], [facility] 08/06/2020 16:30:26 OBGyn Episode No OBEpisode recorded.
--- OUTSIDE RECORDS SUMMARY | 2025-01-31 14:28 | XMS_ITS | Encounter Summary ---
Author Organization [employer] ([place], [place], [place], [place], [place]) Address [address] [place] [id number] Care Team Providers Care Jewel Bearing Maker Name Role Phone Unavailable Primary Care Provider Unavailabl e Encounter Details Date Type Department Care Team (Late st Contact Info) Description 11/29/2019 Transcribed Document [facility] Radiology 1 [place] [address] Abhijit Serna MD [address] [address] Social History Tobacco Use Types Packs/Day Years Used Date Smoking Tobacco: Never Assessed Comments Unknown Sex and Gender Information Value Date Recorded Sex Assigned at Not on file Legal Sex Female 5:45 PM CDT Gender Identity Not on file Sexual Orientation Not on file documented as of this encounter Miscellaneous Notes * Cerner Conversion Note - Abhijit Serna MD - 11/29/2019 9:06 AM EDT Patient: JAN ESPINAL Age: 69 years Sex: Female : 1950 Associated Diagnoses: None Author: TATI PURCELL PA-JUANITO 11/29/2019 cc: medical management s/p right total hip arthroplasty HPI: Patient is a 69 yo female admitted to [facility] per Dr. Alves for a right total hip arthroplasty. Preoperatively patient was found to have advanced osteoarthritis of the right hip and elected surgical intervention after failing conservative treatment. Patient is followed perioperatively while hospitalized for medical management. Initial visit on floor - Denies prior stroke or seizure. Denies MN, CHF. sometimes heart flutter. Denies DM. Denies COPD, or SUSANNAH. +hx of asthma. Denies DVT or PE. ho skin cancer. +urinary incontinnce. Denies any recent illnesses that required abx. Denies prior skin infections. +nausea after surgery. SBP running in the 90s. +HTN, CAD. S/p 3 cardiac stents. States she has had fluid around her heart before. No current cp, soa. no f/s. Feeling chilled. Past Med Hx: Active Problems (18) Allergic rhinitis Angina Arthritis Asthma At risk for sleep apnea Back pain CHF Chronic constipation Colon polyps (x2) COPD Dizziness Hemorrhoids High blood pressure Hyperlipidemia Incontinence (stress) Restless legs syndrome Skin cancer Stented coronary artery (x3) Active Procedures (4) basal cell carcinoma removed from arm heart cath (xtotal of 3 stents) heart cath LTHR Family Hx: mother - emphysema, esophageal cancer, heart problems, alcoholic father - alcoholic, [place] brother - alcoholic, drugs Social & Psychosocial Habits Alcohol 11/07/2015 Alcohol Use History, Social Habits Yes Alcohol Use Frequency Rarely Alcohol Use Comment a glass of wine once or twice a year Employment/School 11/08/2015 Status: Retired Home/Environment 11/08/2015 Lives with: Spouse Home equipment: Walker/Cane 11/08/2015 Home equipment: Wheelchair Substance Abuse 11/07/2015 Recreational Drug Use History No Recreational Drug Use Last 12 Months No Tobacco 11/07/2015 Smoking Status Never smoker Allergies (6) Active Reaction atorvastatin None Documented isosorbide None Documented penicillin Rash Ranolazine ER None Documented rosuvastatin Muscle weakness Uncoded Allergy (See Comment) None Documented Home Medications (21) Active albuterol 90 mcg/inh inhalation powder 1 Puff, PRN, Inhalation, Q4H amLODIPine 10 mg, Oral, Daily aspirin 81 mg, Oral, Daily bisoprolol 5 mg, Oral, Daily calcium citrate 300mg/150mg, Oral, Daily Cranberry 500 mg, Oral, Daily dandelion root 515 mg, Oral, TuTh ezetimibe 10 mg, Oral, At Bedtime L-Arginine 500 mg oral capsule 500 mg = 1 Cap, Oral, TuTh Lasix 5 mg, Oral, Daily losartan 50 mg, Oral, Daily mangosteen 500 mg, Oral, Daily multivitamin 1 gummy, Chew, Daily nitroglycerin 0.4 mg, PRN, SubLINgual, Q5Min Non Formulary med 750 mg, Oral, Daily Non Formulary med 20/1 mg, Oral, Daily Non Formulary med 500 mg, Oral, Daily Non Formulary med 450 mg, Oral, TuTh Non Formulary med 425 mg, Oral, Daily Plavix 75 mg, Oral, Daily Vitamin D3 10 mcg, Oral, Daily ROS: Constitutional: [No fevers, sweats] +chills HEENT: [No ear pain, nasal congestion, sore throat] Respiratory: [No shortness of breath, cough, sputum production] Cardiovascular: [No Chest pain, palpitations, shortness of breath] Gastrointestinal: [No nausea, vomiting, diarrhea, constipation] Genitourinary: [No hematuria, dysuria, +incontinence Musculoskeletal: [No back pain, neck pain, joint pain, muscle pain, decreased range of motion] Integumentary: [No rash, pruritus, abrasions, lesions] Neurologic: [No seizures or stroke. No dizziness or syncope. Exam: Vitals Signs (last 24 hrs) Last Charted Minimum Maximum Temp 97 (NOV 28 07:00) 97 (NOV 28 07:00) 97 (NOV 28:) Mon HR 61 (NOV 28:00) 61 (NOV 28 07:00) 61 (NOV 28:00) Resp Rate 20 (NOV 28:00) 20 (NOV 28 07:00) 20 (NOV 28:00) SBP 124 (NOV 28 07:00) 124 (NOV 28:00) 124 (NOV 28:00) DBP 61 (NOV 28:00) 61 (NOV 28:00) 61 (NOV 28 07:00) SpO2 100 (NOV 28 07:00) 100 (NOV 28 07:00) 100 (NOV 28:00) GEN: Awake, NAD; Lymph: no cervical or axillary LAD Neck: supple, no thyromegaly HEENT: NCAT, no icterus, no thrush, nares patent, CV: S1S2, no murmur. No LE edema Resp: CTAB, NL Abd: Soft, NT, ND +BS Skin: no rashes on inspection and palpation. Ext: No LE edema. No joint edema, erythema. no calf tenderness Neuro: O x 3, CN grossly intact Data: preop reviewed cbc, bmp Impression: advanced OA right hip -s/p right total hip arthroplasty HTN po nausea -- doing better with meds. po hypotension preop cr 1.2, reduced gfr 44 Plan: hold lasix, losartan and amldopine -- reassess BP and renal fxn in am hold parameters for bisoprolol NS IVF 500 ml bolus Monitor HTN; add PRN's, hold parameters bowel regimen incentive spirometer PT/OT DVT prophylaxis noted Pain management deferred to surgeon will monitor hb/hct daily for signs of ongoing acute blood loss will monitor bun/cr daily for signs of dehydration, prerenal azotemia will monitor for signs/symptoms of post-op wound infection or hospital acquired infectious process resume outpatient medication regimen for comorbidities Assessment and treatment plan made in conjunction with Sunita Serna MD Scribed by Kat Carter documented in this encounter Plan of Treatment Not on file documented as of this encounter Visit Diagnoses Not on filedocumented in this encounter
--- OUTSIDE RECORDS SUMMARY | 2025-01-31 14:28 | XMS_ITS | Encounter Summary ---
Author Organization [employer] ([place], [place], [place], [place], [place]) Address [address] [place] [address] Care Team Providers Care Tooling Manager Name Role Phone Unavailable Primary Care Provider Unavailabl e Encounter Details Date Type Department Care Team (Late st Contact Info) Description 11/29/2019 Transcribed Document [facility] Radiology [address] [place] [address] Provider, Deni Ruiz MD Social [...] Note - Deni Ruiz ProviderMD - 11/29/2019 1:46 PM EDT Evaluation, Physical Therapy Entered On: 11/29/2019 15:19 EDT Performed On: 11/29/2019 14:19 EDT by JAY MATUTE, PT General Information, PT Visit Type, PT : Initial evaluation Patient Orders : Order Date Order Ordering [...] Treatment Instructions Ordered By: BRIAN COPE MD-ORT Active Diagnoses : No Qualifying Diagnoses Admission Date : 11/29/2019 06:27 Co-treated by, PT : Occupational Therapist, Other: OTx student Personal Devices : Personal Devices No Devices Recorded Assistive Devices : Assistive Devices No Devices Recorded JAY MATUTE PT - 11/29/2019 15:03 EDT General Status Patient Received Status : Supine in bed Treatment Start Time : 11/29/2019 13:59 EDT Patient Left Status : Up in chair, RN/PCT informed, Communication board completed, All needs met and within reach RN/PCT Informed Comment : yes per RN Marina Treatment End Time : 11/29/2019 14:19 EDT Treatment Time : 20 Minute(s) Actual Treatment Time : 20 Minute(s) JAY MATUTE, PT - 11/29/2019 15:03 EDT History and Environment Living Situation, Therapy : Home Patient Lives With : Spouse Persons Assisting Patient at Home : Alone Professional Skilled Services : None Persons Providing Information : Patient Home Equipment Therapy, PT : Cane, Shower Equipment, Walker Cane : Cane, single point Shower Equipment : Shower Chair, with back Walker : Walker, front wheel Home Setup : One story Bedroom Location : Main level Bathroom #1 Location : Main level Bathroom #1 Features : Toilet, Tub/Shower Stairs : No Ramp : Yes JAY MATUTE, PT - 11/29/2019 15:03 EDT Prior Level of Function PT GRID Prior LOF Ambulation, Household : Independent Prior LOF Ambulation, Community : Independent Prior LOF Bed Mobility : Independent Prior LOF Toileting : Independent Prior LOF Transfer : Independent JAY MATUTE, PT - 11/29/2019 15:03 EDT Prior LOF Assist with ADL Comment : pt stated my is in worse shape than me, he won't be able to help me JAY MATUTE, PT - 11/29/2019 15:03 EDT Upper Extremity Right UE Active ROM : WFL Right UE Strength : WFL Left UE Active ROM : WFL Left UE Strength : WFL Right UE Strength : WFL Left UE Strength : WFL JAY MATUTE, PT - 11/29/2019 15:03 EDT Lower Extremity RLE Active ROM : Impaired Right LE Strength : Impaired LLE Active ROM : WFL Left LE Strength : WFL Lower Extremity Comment : R LE MMT not done due to just had DA JAYNA JAY MATUTE, PT - 11/29/2019 15:03 EDT Functional Mobility Mobility Grid Bed Roll Right : Rehab Complete independence Bed Scooting : Rehab Complete independence Supine to Sit : Rehab Complete independence Sit to Stand : Supervision/set-up Stand to Sit : Supervision/set-up JAY MATUTE PT - 11/29/2019 15:03 EDT Sit to Stand Device : Belt, gait, Walker, front wheel Stand to Sit Device : Belt, gait, Rails, Walker, front wheel JAY MATUTE PT - 11/29/2019 15:03 EDT Gait Training/Assessment, PT Weight Bearing Order Status : WBAT R LE Weight Bearing Status Maintained : Yes Weight Bearing Status : As tolerated right lower extremity Gait Assistance Level : Supervision Walking Distance : approx 120 ft Ambulatory Devices : Gait belt, Walker, front wheel, Other: IV, 2L O2 Gait Deviations : Yes Left Lower Gait Deviation : Nancy, decreased Right Lower Gait Deviation : Nancy, decreased Gait Training Comment : antalgic gait R LE JAY MATUTE, PT - 11/29/2019 15:03 EDT Cognition Assessment, PT Orientation : Oriented x 4 Safety/Judgment Comment : good Follows Basic Command Assessment : yes Attention Assessment : Present JAY MATUTE PT - 11/29/2019 15:03 EDT Edu Topics Physical Therapy Education Grid Balance Training : Returns demonstration Bed Mobility Training : Returns demonstration, Needs reinforcement Gait Training : Returns demonstration, Needs reinforcement Role of Physical Therapy : Verbalizes understanding Safety : Returns demonstration, Needs reinforcement Therapeutic Exercises : Returns demonstration, Needs further teaching, Needs reinforcement (Comment: AP, QS, GS [JAY MATUTE PT - 11/29/2019 15:03 EDT] ) Transfer Training : Returns demonstration, Needs reinforcement Use of Assistive Device : Returns demonstration JAY MATUTE PT - 11/29/2019 15:03 EDT Indication Assesessment, PT Physical Therapy Indicated : Yes PT Problem List : Impaired, endurance tolerance, Impaired, gait, Impaired, transfers, Pain limiting function Potential Barriers To Therapy : Acuity of Illness, Pain Rehabilitation Potential : Good JAY MATUTE PT - 11/29/2019 15:03 EDT Plan of Care, PT PT Tx Plan/Goals Established w Patient : Yes PT Frequency Rehab : Daily, twice (bid) PT Duration Rehab : Seven Days JAY MATUTE, PT - 11/29/2019 15:03 EDT Tractor Trailer Technician Goals Mobility/Bed Mobility LTG PT Grid Goal #1 Activity : Sit to stand Assist : Independent, modified Equipment : Walker, front wheel Date to Meet : 12/06/2019 EDT Goal Status : Intial Goal JAY MATUTE, PT - 11/29/2019 15:03 EDT Ambulation LTG Grid Goal #1 Device : Walker, front wheel Distance : 150 ft Assist : Independent, modified Date to Meet : 12/06/2019 EDT Goal Status : Intial Goal JAY MATUTE, PT - 11/29/2019 15:03 EDT Treatment Note Additional Objective Information : Independent for supine to sit, Supervision for sit to stand and to amb approx 120 ft RWx, ed in AP, QS,GS JAY MATUTE, PT - 11/29/2019 16:53 EDT Subjective Comment : agreed to PTx/OTx I am cold and sleepy Patient's Response to Treatment : good Assessment : good effort and yves moving well after surgery earlier today needs further PTx rehab to maximize benefit of JAYNA for this active pt Plan for Treatment : Intiate POC for mobility JAY MATUTE, PT - 11/29/2019 15:03 EDT Pain Assessment Pain Scaled Used : 0-10 Pain scale Pain Score Pre-Intervention : 5 Location : Hip, right Onset : Constant Pain Comment : pt reports recent pain meds JAY MATUTE, PT - 11/29/2019 15:03 EDT Image 1 - Images currently included in the form version of this document have not been included in the text rendition version of the form. Anticipated Discharge Needs, OT/PT Anticipated Discharge to : Assisted living JAY MATUTE, PT - 11/29/2019 15:03 EDT [facility] PT Charges PT Therap. Exercise 15 min : 1 PT Eval Low Complexity : 1 JAY MATUTE, PT - 11/29/2019 15:03 EDT documented in this encounter Plan of Treatment Not on file documented as of this encounter Visit Diagnoses Not on filedocumented in this encounter
--- OUTSIDE RECORDS SUMMARY | 2025-01-31 14:28 | XMS_ITS | Encounter Summary ---
Author Organization [employer] ([place], [place], [place], [place], [place]) Address [address] [place] [id number] Care Team Providers Care Gummed Tape Press Operator Name Role Phone Unavailable Primary Care Provider Unavailabl e Encounter Details Date Type Department Care Team (Late st Contact Info) Description 11/29/2019 Transcribed Document [facility] Radiology 1 [place] [address] ProviderDeni MD Social History Tobacco Use Types Packs/Day Years Used Date Smoking Tobacco: Never Assessed Comments Unknown Sex and Gender Information Value Date Recorded Sex Assigned at Not on file Legal Sex Female 5:45 PM CDT Gender Identity Not on file Sexual Orientation Not on file documented as of this encounter Miscellaneous Notes * Cerner Conversion Note - [facility] Joseph Richardson MD - 11/29/2019 1:46 PM EDT Education-(VTE) / (DVT) Entered On: 11/29/2019 14:01 EDT Performed On: 11/29/2019 12:46 EDT by Marina Salazar, RN Teaching/Learning Assessment Barriers To Learning : None evident Learning Style Preferences Patient : Verbal explanation Learning Style Preferences Family : Verbal explanation Marina Salazar, RN - 11/29/2019 14:00 EDT documented in this encounter Plan of Treatment Not on file documented as of this encounter Visit Diagnoses Not on filedocumented in this encounter
--- OUTSIDE RECORDS SUMMARY | 2025-01-31 14:28 | XMS_ITS | Encounter Summary ---
Author Organization [employer] ([place], [place], [place], [place], [place]) Address [address] [place] [address] Care Team Providers Care Move Coordinator Name Role Phone Unavailable Primary Care Provider Unavailabl e Encounter Details Date Type Department Care Team (Late st Contact Info) Description 11/29/2019 Transcribed Document [facility] Radiology [address] [place] [address] ProviderDeni MD Social History Tobacco Use Types Packs/Day Years Used Date Smoking Tobacco: Never Assessed Comments Unknown Sex and Gender Information Value Date Recorded Sex Assigned at Not on file Legal Sex Female 5:45 PM CDT Gender Identity Not on file Sexual Orientation Not on file documented as of this encounter Miscellaneous Notes * Cerner Conversion Note - [facility] Joseph ProviderMD - 11/29/2019 3:00 AM EDT Spiritual Care Assessment Entered On: 11/29/2019 8:10 EDT Performed On: 11/29/2019 7:32 EDT by MAURICIO MERAZ General Information Initial Visit : Yes Referred by : Patient Referral Reason Comment : Pre-surgery visit Ministry Provided to : Patient MAURICIO MERAZ P - 11/29/2019 8:09 EDT Spiritual Assessment Spiritual Assessment Comment/Summary Points : Pre-surgery visit and prayer. Patient expresses concern for her at home. Spirital Assessment Comment/Summary Report : SPIRITUAL ASSESSMENT COMMENT/SUMMARY No qualifying data available. MAURICIO MERAZ - 11/29/2019 8:09 EDT Interventions Emotional Support : Empathic/Engaged listening, Feelings expressed Spiritual and Rastafari : Prayer shared, Spiritual/Rastafari support provided MAURICIO MERAZ - 11/29/2019 8:09 EDT Electronically signed by Deni Candelaria [employer] Sales Representative Cerner at 09/18/2022 5:16 PM CDT documented in this encounter Plan of Treatment Not on file documented as of this encounter Visit Diagnoses Not on filedocumented in this encounter
--- OUTSIDE RECORDS SUMMARY | 2025-01-31 14:28 | XMS_ITS | Encounter Summary ---
Author Organization [employer] ([place], [place], [place], [place], [place]) Address [address] [place] [address] Care Team Providers Care Mental Health Clinician Name Role Phone Unavailable Primary Care Provider Unavailabl e Encounter Details Date Type Department Care Team (Late st Contact Info) Description 11/29/2019 Transcribed Document [facility] Radiology [address] [place] [address] Provider, Deni Ruiz MD Social History Tobacco Use Types Packs/Day Years Used Date Smoking Tobacco: Never Assessed Comments Unknown Sex and Gender Information Value Date Recorded Sex Assigned at Not on file Legal Sex Female 5:45 PM CDT Gender Identity Not on file Sexual Orientation Not on file documented as of this encounter Miscellaneous Notes * Cerner Conversion Note - [facility] Joseph ProviderMD - 11/29/2019 9:49 AM EDT [facility] Main OR PACU Summary Primary Physician: BRIAN COPE MD-ORT Finalized Date/Time: 11/29/19 11:37:16 Pt. Name: JAN ESPINAL D.O.B./Sex: 1950 Female Med Rec #: [id number] Physician: BRIAN COPE MD-ORT Financial #: [id number] Pt. Type: O Room/Bed: [facility]/ Admit/Disch: 11/29/19 06:27:00 - Institution: [facility] Main OR PACU I Case Times Entry 1 In PACU I 11/29/19 09:55:00 Ready for PACU 11/29/19 10:46:00 Discharge Discharge from PACU 11/29/19 11:15:00 I Last Modified By: CEDRIC CALVO 11/29/19 11:36:40 Finalized By: CEDRIC CALVO Document Signatures Signed By: CEDRIC CALVO 11/29/19 11:37 documented in this encounter Plan of Treatment Not on file documented as of this encounter Visit Diagnoses Not on filedocumented in this encounter
--- OUTSIDE RECORDS SUMMARY | 2025-01-31 14:28 | XMS_ITS | Encounter Summary ---
Author Organization [employer] ([place], [place], [place], [place], [place]) Address [address] [place] [address] Care Team Providers Care Camera Engineer Name Role Phone Unavailable Primary Care Provider Unavailabl e Encounter Details Date Type Department Care Team (Late st Contact Info) Description 11/29/2019 Transcribed Document [facility] Radiology 1 [place] [address] ProviderDeni MD Social History Tobacco [...] Conversion Note - [facility] Joseph ProviderMD - 11/29/2019 11:00 PM EDT Pain Assessment Entered On: 11/30/2019 0:04 EDT Performed On: 11/29/2019 22:22 EDT by Wanda Kuo RN Intervention Information: ketorolac Performed by Wanda Kuo RN on 11/29/2019 21:52:00 EDT ketorolac,15mg IV Push,Left Hand Pain Assessment Pain Assessment : Follow-up assessment Pain Scale Goal : 3 Pain Scale Used : 0-10 Scale Wanda Kuo RN - 11/30/2019 0:03 EDT Pain Scale Intensity : 1 Wanda Kuo RN - 11/30/2019 0:03 EDT Image 4 - Images currently included in the form version of this document have not been included in the text rendition version of the form. documented in this encounter Plan of Treatment Not on file documented as of this encounter Visit Diagnoses Not on filedocumented in this encounter
--- OUTSIDE RECORDS SUMMARY | 2025-01-31 14:28 | XMS_ITS | Encounter Summary ---
Author Organization [employer] ([place], [place], [place], [place], [place]) Address [address] [address] Care Team Providers Care Adzing And Boring Machine Feeder Name Role Phone Unavailable Primary Care Provider Unavailabl e Encounter Details Date Type Department Care Team (Late st Contact Info) Description 11/29/2019 Transcribed Document [facility] Radiology [address] [place] [address] Blanca Alves MD [address] [place] [address] Social History Tobacco Use Types Packs/Day Years Used Date Smoking Tobacco: Never Assessed Comments Unknown Sex and Gender Information Value Date Recorded Sex Assigned at Not on file Legal Sex Female 5:45 PM CDT Gender Identity Not on file Sexual Orientation Not on file documented as of this encounter Miscellaneous Notes * Cerner Conversion Note - Blanca Alves MD - 11/29/2019 10:48 AM EDT Patient: JAN WILBURN Age: 69 Years Sex: Female : 1950 *Operation Right total hip arthroplasty, direct anterior approach Indication for Surgery Pleasant 69-year-old female known to me from a previous left JAYNA.The patient has end-stage osteoarthritis of the above-mentioned hip. They have otherwise failed conservative measures and now present for total hip arthroplasty. The risks benefits and alternatives have been explained to the patient in detail and they have voiced their agreement. *Preoperative Diagnosis Osteoarthritis right hip *Postoperative Diagnosis Osteoarthritis right hip *Surgeon(s) Surgeon: Long Wood Getter: Alli *Procedure Narrative Patient was identified in the preoperative holding and the appropriate lower extremity was marked. They were transferred to operating theater, general anesthesia induced by the attending Anesthesia staff. The patient was given appropriate preop antibiotic prophylaxis as well as 1 g of intravenous tranexamic acid. Feet wrapped in Coban, placed in traction boots. The patient was then carefully positioned on the [place] table. The hip was then prepped and draped in the usual sterile fashion. Time-out was performed. Appropriate patient and operative extremity were confirmed. A standard 14 cm skin incision was made, 2 cm distal and lateral to the ASIS. Subcutaneous dissection carried down to the level of the TFL fascia. Fascia incised in line with the skin, reflected anteriorly off the TFL muscle belly. The interval between superior neck and the abductors were identified and reflected. Lateral femoral circumflex vessels were identified and cauterized. Rectus gently elevated off the anterior aspect of the femur and the inferior neck was exposed. Pericapsular fat was removed. Next, a standard L-shaped capsulotomy performed in line with the femoral neck. Anterior and posterior limbs were tagged and reflected. Capsule released medially off the calcar down to the level of the lesser trochanter. Next, with the hip in a slight amount of external rotation and gentle traction applied, the neck osteotomy was marked using preoperative templating and local landmarks. Osteotomy carried out in a napkin ring fashion. Residual femoral neck and head were then removed. Next, the acetabulum was exposed. Capsule was reflected. Labrum, pulvinar and other soft tissues were resected. Next, under fluoroscopic guidance, a series of hemispherical acetabular reamers were passed. Juzg-hd-wgnh ream, with an excellent bleeding cancellous bony bed. Good maintenance of anterior and posterior apodaca. We then impacted the appropriately sized cup under fluoroscopic guidance in approximately 40 degrees of abduction, 20 degrees of anteversion. We had an appropriate initial press-fit. We placed two bone screws both with excellent purchase. Acetabular osteophytes removed, if present. Cup was irrigated. Final liner impacted in place. We turned our attention to femoral exposure. A femoral hook placed proximal to gluteal sling. Leg was externally rotated, extended and adducted. Posterosuperior capsule reflected medially off the greater trochanter. Piriformis and capsule were released and the femoral hook was elevated. Next, a box osteotome used to remove lateral bone followed by canal finder. A chili pepper broach was used to set version parallel to the posterior cortex of the femur. Series of Accolade broaches were then passed. We passed sequentially larger broaches until we obtained good axial and rotational stability. Calcar planer passed over final broach. We trialed necks and heads. Stability, leg length and offset all tested at this point, found to be appropriate. Next, the proximal femur was again exposed and trials were removed. Final Accolade stem impacted into place. Position relative to final broach was assessed. We re-trialed heads and selected the above-mentioned ceramic head, which was impacted onto a clean and dry trunnion. Next, hip was reduced. Final fluoroscopic images were taken and saved. The wound was thoroughly irrigated with dilute Betadine lavage and normal saline. Pericapsular tissues infiltrated with a pain cocktail. 1 g vancomycin powder and 2 g topical tranexamic acid applied to the joint. The fascia was closed with #1 Stratafix. Skin closed in layers with Vicryl, Stratafix, and Dermabond. Wound was covered with an Aquacel dressing. Next, drapes were removed. Patient carefully transferred to a stretcher. Traction boots and Coban were removed. He was then extubated without incident, and taken to PACU in stable condition. All instruments, sponge and needle counts were correct at the end of the case. Drains/Packs Used None Anesthesia General *Estimated Blood Loss 300 mL *Findings Abx: 2g Ancef Implants: Stollings Trident 2 acetabular component: 50 mm 6.5 mm Acetabular screws: 2 Shay Accolade 2 femoral component: Size 4 132 neck angle Trident X3 acetabular liner: 36 mm neutral Biolox Delta ceramic femoral head: 36 mm -2.5 Reaming technique: [id number]-[id number] Initial press-fit assessment: excellent Acetabular screws: 2 Acetabular osteophytes: none Femoral osteotomy level: 10 mm above lesser trochanter Releases: piriformis, capsule Broach position relative to neck cut: flush Final implant position relative to final broach: same Stability: ER- 120 deg max IR- 70 Other: none *Specimen(s) Femoral head to pathology Complications None Technique Press-fit JAYNA, direct anterior approach Date of Service Date/Time of Service - Proc - Start Time: 11/29/19 08:49:00 (11/29/19 08:57:36) documented in this encounter Plan of Treatment Not on file documented as of this encounter Visit Diagnoses Not on filedocumented in this encounter
--- OUTSIDE RECORDS SUMMARY | 2025-01-31 14:28 | XMS_ITS | Encounter Summary ---
Author Organization [employer] ([place], [place], [place], [place], [place]) Address [address] [place] [address] Care Team Providers Care Professional Skateboarder Name Role Phone Unavailable Primary Care Provider Unavailabl e Encounter Details Date Type Department Care Team (Late st Contact Info) Description 11/30/2019 Transcribed Document [facility] Radiology [address] [place] [address] ProviderDeni MD Social History Tobacco Use Types Packs/Day Years Used Date Smoking Tobacco: Never Assessed Comments Unknown Sex and Gender Information Value Date Recorded Sex Assigned at Not on file Legal Sex Female 5:45 PM CDT Gender Identity Not on file Sexual Orientation Not on file documented as of this encounter Miscellaneous Notes * Cerner Conversion Note - [facility] Joseph Richardson MD - 11/30/2019 11:00 AM EDT UM Authorization Entered On: 11/30/2019 10:01 EDT Performed On: 11/30/2019 10:00 EDT by Zehra Baeza Rn-Utilization Review Primary Insurance Authorization Authorization and Policy Numbers : Insurance 1 Health Plan: [facility] MEDICARE ADVANTAGE Policy Number: [id number] Authorization Number: Insurance Primary Name : [facility] Medicare [id number] Authorized Service Begin Date-Primary : 11/29/2019 EDT Historical Authorization Comments-Primary : Comment 1: Patient is scheduled for OUT PT total hip replacement on 11-29-2019 [facility] MCR: NPR for OP (FRANCES RIOJAS, Lead Instructor/Flight Attendant 11/28/2019 13:26) Zehra Baeza Rn-Utilization Review - 11/30/2019 10:00 EDT documented in this encounter Plan of Treatment Not on file documented as of this encounter Visit Diagnoses Not on filedocumented in this encounter
--- OUTSIDE RECORDS SUMMARY | 2025-01-31 14:28 | XMS_ITS | Encounter Summary ---
Author Organization [employer] ([place], [place], [place], [place], [place]) Address [address] [place] [id number] Care Team Providers Care Emergency Vehicle Driver Name Role Phone Unavailable Primary Care Provider Unavailabl e Encounter Details Date Type Department Care Team (Late st Contact Info) Description 11/30/2019 Transcribed Document [facility] [address] [place] [address] Deni Richardson MD Social History Tobacco Use Types Packs/Day Years Used Date Smoking Tobacco: Never Assessed Comments Unknown Sex and Gender Information Value Date Recorded Sex Assigned at Not on file Legal Sex Female 5:45 PM CDT Gender Identity Not on file Sexual Orientation Not on file documented as of this encounter Miscellaneous Notes * Cerner Conversion Note - [facility] Joseph ProviderMD - 11/30/2019 1:45 PM EDT Stroke/Warfarin Instructions Entered On: 11/30/2019 12:45 EDT Performed On: 11/30/2019 12:45 EDT by Marina Slaazar RN Stroke/Warfarin Instructions Stroke/TIA Discharge Ins : N/A Warfarin Discharge Ins : N/A Marina Salazar RN - 11/30/2019 12:45 EDT documented in this encounter Plan of Treatment Not on file documented as of this encounter Visit Diagnoses Not on filedocumented in this encounter
--- OUTSIDE RECORDS SUMMARY | 2025-01-31 14:28 | XMS_ITS | Clinical Summary ---
Author Organization [employer] ([place], [place], [place], [place], [place]) Address [address] [place] [address] Care Team Providers Care Screen Room Operator Name Role Phone Unavailable Primary Care Provider Unavailabl e Social History Tobacco Use Types Packs/Day Years Used Date Smoking Tobacco: Never Assessed Comments Unknown Sex and Gender Information Value Date Recorded Sex Assigned at Not on file Legal Sex Female 5:45 PM CDT Gender Identity Not on file Sexual Orientation Not on file Plan of Treatment Not on file
--- OUTSIDE RECORDS SUMMARY | 2025-01-31 14:28 | XMS_ITS | Encounter Summary ---
Author Organization [employer] ([place], [place], [place], [place], [place]) Address [address] [place] [address] Care Team Providers Care Steam Bone Press Tender Name Role Phone Unavailable Primary Care Provider Unavailabl e Encounter Details Date Type Department Care Team (Late st Contact Info) Description 11/29/2019 Transcribed Document [facility] Radiology [address] [place] [address] Blanca Alves MD [address] [place] [address] Social History Tobacco Use Types Packs/Day Years Used Date Smoking Tobacco: Never Assessed Comments Unknown Sex and Gender Information Value Date Recorded Sex Assigned at Not on file Legal Sex Female 5:45 PM CDT Gender Identity Not on file Sexual Orientation Not on file documented as of this encounter Miscellaneous Notes * Cerner Conversion Note - Blanca Alves MD - 11/29/2019 7:45 AM EDT Patient: JAN ESPINAL Age: 69 years Sex: Female : 1950 Associated Diagnoses: None Author: DELIO ANDERSEN, FLORAL DESIGN TEACHER Chief Complaint R hip pain Review of Systems ROS reviewed as documented in chart no change since last seen by surgeon Health Status Allergies: Allergic Reactions (Selected) Severity Not Documented Atorvastatin- No reactions were documented. Isosorbide- No reactions were documented. Penicillin- Rash. Ranolazine ER- No reactions were documented. Uncoded Allergy (See Comment)- No reactions were documented. Nonallergic Reactions (Selected) Severity Not Documented Rosuvastatin- Muscle weakness. , Allergies (6) Active Reaction atorvastatin None Documented isosorbide None Documented penicillin Rash Ranolazine ER None Documented rosuvastatin Muscle weakness Uncoded Allergy (See Comment) None Documented Current medications: (Selected) Inpatient Medications Ordered Ancef: 2 Gram, 50 mL, 100 mL/Hr, IV Piggyback, PREOP Lactated Ringers Injection intravenous solution 1,000 mL: 20 mL/Hr, IntraVENous Lyrica: 75 mg, Oral, 1-Time Toradol: 30 mg, IV Push, 1-Time Tylenol: 1,000 mg, Oral, On-Arrival Zofran: 4 mg, IV Push, 1-Time dexamethasone: 10 mg, IV Push, 1-Time lidocaine 1% preservative-free injectable solution: 0.5 mL, IntraDermal, 1-Time ropivacaine 0.5% injectable solution 24.6 mL + EPINEPHrine 0.25 mg + cloNIDine 40 mcg + Sodium Chlo...: 24.6 mL, 50 mL/Hr, Miscellaneous, 1-Time tranexamic acid 1,000 mg + syringe 1 Each + Sodium Chloride 0.9% intravenous solution 15 mL: 1,000 mg, 10 mL, 150 mL/Hr, IV Push, 1-Time tranexamic acid 2,000 mg + sodium chloride 0.9% injectable solution 5 mL + syringe 1 Each: 2,000 mg, 20 mL, 75 mL/Hr, IV Push, 1-Time Documented Medications Documented Cranberry: 500 mg, Oral, Daily, 0 Refill(s) L-Arginine 500 mg oral capsule: 1 Cap, Oral, TuTh, 0 Refill(s) Lasix: 5 mg, Oral, Daily, 0 Refill(s) Non Formulary med: 20/1 mg, Oral, Daily, 0 Refill(s) Non Formulary med: 425 mg, Oral, Daily, 0 Refill(s) Non Formulary med: 450 mg, Oral, TuTh, 0 Refill(s) Non Formulary med: 500 mg, Oral, Daily, 0 Refill(s) Non Formulary med: 750 mg, Oral, Daily, 0 Refill(s) Plavix: 75 mg, Oral, Daily, 0 Refill(s) Vitamin D3: 10 mcg, Oral, Daily, 0 Refill(s) albuterol 90 mcg/inh inhalation powder: 1 Puff, Inhalation, Q4H, PRN: as needed for shortness of breath or wheezing, 1 Each, 0 Refill(s) amLODIPine: 10 mg, Oral, Daily, 0 Refill(s) aspirin: 81 mg, Oral, Daily, 0 Refill(s) bisoprolol: 5 mg, Oral, Daily, 0 Refill(s) calcium citrate: 300mg/150mg, Oral, Daily, 0 Refill(s) dandelion root: 515 mg, Oral, TuTh, 0 Refill(s) ezetimibe: 10 mg, Oral, At Bedtime, 0 Refill(s) losartan: 50 mg, Oral, Daily, 0 Refill(s) mangosteen: 500 mg, Oral, Daily, 0 Refill(s) multivitamin: 1 gummy, Chew, Daily, 0 Refill(s) nitroglycerin: 0.4 mg, SubLINgual, Q5Min, PRN: as needed for chest pain, 0 Refill(s) , Home Medications (21) Active albuterol 90 mcg/inh [...] Daily Vitamin D3 10 mcg, Oral, Daily , Medications (11) Active Scheduled: (10) acetaminophen 500 mg tab 1,000 mg 2 Tab, Oral, On-Arrival ceFAZolin/D5w 2 Gram 50 mL, IV Piggyback, PREOP dexamethasone 10 mg/1 mL inj 10 mg 1 mL, IV Push, 1-Time ketorolac 30 mg/1 mL inj 30 mg 1 mL, IV Push, 1-Time lidocaine 1% *PF* inj 30 mL 0.5 mL, IntraDermal, 1-Time ondansetron 4 mg/2 mL inj 4 mg 2 mL, IV Push, 1-Time pregabalin 75 mg cap 75 mg 1 Cap, Oral, 1-Time ropivacaine 0.5% 24.6 mL + EPINEPHrine 0.25 mg + cloNIDine 40 mcg + NaCl 0.9% 24.75 mL 24.6 mL, Miscellaneous, 1-Time tranexamic acid 1,000 mg + syringe 1 Each + NaCl 0.9% 15 mL 1,000 mg 10 mL, IV Push, 1-Time tranexamic acid 2,000 mg + NaCl 0.9% *PF* 5 mL + syringe 1 Each 2,000 mg 20 mL, IV Push, 1-Time Continuous: (1) lactated ringers 1,000 mL 1,000 mL, IntraVENous, 20 mL/Hr PRN: (0) Problem list: All Problems Stented coronary artery (x3) / SNOMED CT 1107711084 / Confirmed Skin cancer / SNOMED CT 8256563860 / Confirmed Restless legs syndrome / SNOMED CT 78354924 / Confirmed undiagnosed Colon polyps (x2) / SNOMED CT 666497390 / Confirmed Incontinence (stress) / SNOMED CT 76026750 / Confirmed states doesn't have much control of bowels Hyperlipidemia / SNOMED CT 16813489 / Confirmed COPD / SNOMED CT 8086268643 / Confirmed High blood pressure / SNOMED CT 32997137 / Confirmed Hemorrhoids / SNOMED CT 133094667 / Confirmed CHF / SNOMED CT 603702024 / Confirmed Dizziness / SNOMED CT 2590017632 / Confirmed Chronic constipation / SNOMED CT 135699218 / Confirmed Back pain / SNOMED CT 436961871 / Confirmed At risk for sleep apnea / IMO 99516192 / Confirmed Asthma / SNOMED CT 500298680 / Confirmed Arthritis / SNOMED CT 2763987 / Confirmed Angina / SNOMED CT 821178020 / Confirmed Allergic rhinitis / SNOMED CT 547830456 / Confirmed , Active Problems (18) Allergic rhinitis Angina Arthritis Asthma At risk for sleep apnea Back pain CHF Chronic constipation Colon polyps (x2) COPD Dizziness Hemorrhoids High blood pressure Hyperlipidemia Incontinence (stress) Restless legs syndrome Skin cancer Stented coronary artery (x3) Histories Past Medical History: No active or resolved past medical history items have been selected or recorded. Family History: No family history items have been selected or recorded. Procedure history: heart cath on 05/23/2019 at 68 Years. basal cell carcinoma removed from arm in the month of 03/2016 at 65 Years. LTHR on 11/20/2015 at 65 Years. left cataract in the week of 08/23/2002 at 51 Years. right cataract in the week of 08/08/2002 at 51 Years. ACL Replacement Left Knee in the month of 11/2000 at 50 Years. left ankle fracture repair in the month of 04/1998 at 47 Years. deviated septum in 1984 at 34 Years. fractured left wrist in 1979 at 29 Years. tubal ligation in 1978 at 28 Years. hardware removed from left ankle. Skin Cancers Removed - Multiple Basal Cell CA. Comments: 11/07/2015 10:03 EDT - CHERI KRISHNAN RN 2009, 2011, 2015 heart cath (xtotal of 3 stents). Comments: 11/23/2019 9:50 EDT - GAMA VASQUEZ RN stent 04/20/2017, stent 12/24/2017, stent 10/06/2018 Social History Social & Psychosocial Habits Alcohol 11/07/2015 Alcohol [...] No Tobacco 11/07/2015 Smoking Status Never smoker . Physical Examination VS/Measurements Vital Signs/Vital Measures 11/29/2019 7:00 EDT Blood Pressure Location Arm, left upper Blood Pressure Source Non-Invasive BP Device Blood Pressure Position Supine Systolic Blood Pressure 124 mmHg Diastolic Blood Pressure 61 mmHg Temperature Source Temporal artery scanning Temperature Mode Fahrenheit Temperature, Fahrenheit 97 Deg F Clinical Temperature, C 36.1 Deg C Heart Rate Monitored 61 bpm Respiratory Rate 20 Breaths/Min Oxygen Saturation 100 % Oxygen Therapy Mode Room air , Vitals Signs (last 24 hrs) Last Charted Minimum Maximum Temp 97 (SEP 02 07:00) 97 (NOV 28 07:00) 97 (NOV 28 07:00) Mon HR 61 (NOV 28 07:00) 61 (NOV 28 07:00) 61 (NOV 28 07:00) Resp Rate 20 (NOV 28 07:00) 20 (NOV 28 07:00) 20 (NOV 28 07:00) SBP 124 (NOV 28 07:00) 124 (NOV 28 07:00) 124 (NOV 28 07:00) DBP 61 (NOV 28 07:00) 61 (NOV 28 07:00) 61 (NOV 28 07:00) SpO2 100 (NOV 28 07:00) 100 (NOV 28 07:00) 100 (NOV 28 07:00) General: Alert and oriented, No acute distress. Eye: Pupils are equal, round and reactive to light, Extraocular movements are intact. HENT: Normocephalic, Normal hearing. Neck: Supple, Non-tender. Respiratory: Lungs are clear to auscultation, Respirations are non-labored. Cardiovascular: Normal rate, Regular rhythm, No murmur, No gallop, No edema. Gastrointestinal: Soft, Non-tender. Genitourinary: No costovertebral angle tenderness. Lymphatics: No lymphadenopathy neck, axilla, groin. Musculoskeletal: painful ROM R hip, RLE weakness, see comprehensive ortho exam in office notes. Integumentary: Warm, Dry, bruise L neck and flank areas. Neurologic: Alert, Oriented. Psychiatric: Cooperative, Appropriate mood & affect. Review / Management Results review: Labs (Last four charted values) WBC 8.3 (NOV 22) HB 13.4 (NOV 22) HCT 39.4 (NOV 22) Plt 228 (NOV 22) Na 139 (NOV 22) K 4.0 (NOV 22) Cl 103 (NOV 22) CO2 30 (NOV 22) BUN H 31 (NOV 22) Cr H 1.20 (NOV 22) Glu R 102 (NOV 22) Ca 9.5 (NOV 22) PT 9.8 (NOV 22) INR 0.9 (NOV 22) PTT 27.1 (NOV 22) . Impression and Plan Condition: Stable. documented in this encounter Plan of Treatment Not on file documented as of this encounter Visit Diagnoses Not on filedocumented in this encounter
--- OUTSIDE RECORDS SUMMARY | 2025-01-31 14:28 | XMS_ITS | Encounter Summary ---
Author Organization [employer] ([place], [place], [place], [place], [place]) Address [address] [place] [address] Care Team Providers Care Attorney Recruiter Name Role Phone Unavailable Primary Care Provider Unavailzach e Encounter Details Date Type Department Care Team (Late st Contact Info) Description 11/29/2019 Transcribed Document [facility] Radiology [address] [place] [address] Provider, Deni Ruiz MD Social [...] ProviderMD - 11/29/2019 1:46 PM EDT Evaluation, Occupational Therapy Entered On: 11/29/2019 15:03 EDT Performed On: 11/29/2019 14:17 EDT by VIC WATTS, OTR/L General Information, OT Visit Type, OT : Initial evaluation Patient Orders : Order Date Order Ordering 11/29/2019 12:46 OT Evaluation and Treatment Ordered By: BRIAN COPE MD-ORT 11/29/2019 12:46 OT Treatment Instructions Ordered By: BRIAN COPE MD-ORT Active Diagnoses : No Qualifying Diagnoses Therapy Diagnosis, OT : Decreased I with ADLs and fxnl mobility secondary to osteoarthritis of right hip, resulting in fxnl decline. Onset of Problem, OT : 11/29/2019 EDT Admission Date : 11/29/2019 06:27 Co-treated by, OT : Physical Therapist Personal Devices : Personal Devices No Devices Recorded Assistive Devices : Assistive Devices No Devices Recorded General Information Comment, OT : 76 yo female who was admitted to [facility] 11/28 for osteoarthritis of right hip, s/p R JAYNA, DAA. VIC WATTS OTR/Grey 11/29/2019 14:56 EDT General Status Patient Received Status : Supine in bed Treatment Start Time : 11/29/2019 13:59 EDT Patient Left Status : Up in chair, RN/PCT informed, Communication board completed, All needs met and within reach RN/PCT Informed Comment : DONELL Gray Treatment End Time : 11/29/2019 14:17 EDT Treatment Time : 18 Minute(s) VIC WATTS OTR/Grey - 11/29/2019 14:56 EDT History and Environment, OT Living Situation, Therapy : Home Patient Lives With : Spouse Persons Assisting Patient at Home : Alone Professional Skilled Services : None Persons Providing Information : Patient Home Equipment, Therapy : Shower Equipment, Walker Shower Equipment : Shower Chair, with back Walker : Walker, front wheel Home Setup : One story Ramp : Yes VIC WATTS OTR/Grey 11/29/2019 14:56 EDT Prior LOF Bathing, OT : Independent Prior LOF Bed Mobility : Independent Prior LOF Upper Body Dressing, OT : Independent Prior LOF Lower Body Dressing, OT : Independent Prior LOF Toileting : Independent Prior LOF Transfer : Independent Prior LOF Grooming, OT : Independent Prior LOF for IADLs, OT : Independent VIC WATTS OTR/Grey 11/29/2019 14:56 EDT Upper Extremity Right UE Active ROM : WFL Right UE Strength : WFL Left UE Active ROM : WFL Left UE Strength : WFL Upper Extremity Strength Impaired : No Right UE Strength : WFL Left UE Strength : WFL Upper Extremity Comment : BUE ROM and MMT WFL VIC WATTS OTR/Grey 11/29/2019 14:56 EDT Self Care/Home Management, OT Self Feeding Assist Level, OT : Independent, complete Grooming Assist Level, OT : Independent, complete Bathing Assist Level, OT : Assist, minimal Upper Body Dressing Assist Level, OT : Independent, complete Lower Body Dressing Assist Level, OT : Assist, minimal Toileting Assist Level : Independent, complete Toilet Transfer Assist Level : Supervision or set-up VIC WATTS, OTR/L 11/29/2019 14:56 EDT Mobility Device/Prosthesis/Wt Bearing Weight Bearing Order Status : WBAT Weight Bearing Status Maintained : Yes Weight Bearing Status : As tolerated VIC WATTS, OTR/L 11/29/2019 14:56 EDT Functional Mobility Mobility Grid Supine to Sit : Supervision/set-up Sit to Stand : Supervision/set-up Stand to Sit : Supervision/set-up VIC WATTS OTR/L 11/29/2019 14:56 EDT Sit to Stand Device : Belt, gait, Walker, front wheel Stand to Sit Device : Belt, gait, Walker, front wheel VIC WATTS OTR/L 11/29/2019 14:56 EDT Cognition Assessment, OT Orientation : Oriented x 4 Cognition Assessment, OT : Intact Comprehension Assessment, OT : Intact VIC WATTS OTR11/29/2019 14:56 EDT Education OT Occupational Therapy Education Grid Activity of Daily Living Training : Needs further teaching Functional Mobility Training : Needs further teaching Role of Occupational Therapy : Verbalizes understanding VIC WATTS OTR/11/29/2019 14:56 EDT Teaching/Learning Assessment Barriers To Learning : None evident Individuals Taught : Patient Readiness to Learn : Cooperative Readiness to Learn : Explanation Learning Style Preferences Patient : Verbal explanation Learning Style Preferences Family : Verbal explanation VIC WATTS OTR11/29/2019 14:56 EDT Indication Assessment, OT Occupational Therapy Indicated : Yes Problem List, OT : Impaired, bed mobility, Impaired, activities daily living, Impaired, endurance tolerance, Impaired functional mobility, Impaired, standing balance, Impaired, strength, Impaired, transfers Potential Barriers, OT : None evident Rehabilitation Potential, OT : Good DERREKHERNANVIC ATKINS OTR/L 11/29/2019 14:56 EDT Plan of Care, OT OT Tx Plan/Goals Established w Patient : Yes OT Frequency Rehab : Five days per week OT Duration Rehab : Fourteen days OT Treatments Planned : Activities of daily living, Balance training, Functional mobility training, Safety education, Therapeutic activities, Therapeutic exercises VIC WATTS OTR/L 11/29/2019 14:56 EDT Food Counselor Goals, OT Dressing, Lower Body LTG Grid Goal #1 Activity : Dressing, Lower Body Cues : No cues Assist : Independent, modified Equipment : Long Handled Industrial Maintenance Tech, Sock aid, Long handled shoehorn Date to Meet : 12/13/2019 EDT Goal Status : Initial goal VIC WATTS OTR/L - 11/29/2019 14:56 EDT Toilet Transfer LTG Grid Goal #1 Activity : Toilet Transfer, Ambulatory Cues : No cues Assist : Independent, modified Equipment : Rolling walker Date to Meet : 12/13/2019 EDT Goal Status : Initial goal VIC WATTS OTR/L - 11/29/2019 14:56 EDT Bed Mobility/ Bed Transfer LTG Grid Goal #1 Activity : Bed Mobility/Bed Transfer Cues : No cues Assist : Independent, complete Date to Meet : 12/13/2019 EDT Goal Status : Initial goal VIC WATTS OTR/L - 11/29/2019 14:56 EDT Treatment Note Subjective Comment : Pt and RN okay'd OT eval at this time Patient's Response to Treatment : Pt tolerated OT eval well Additional Objective Information : Pt supine in bed upon OT arrival. Pt to EOB with supervision. Pt tolerated BUE ROM and MMT. Pt stood with RWx and supervision. Pt walked 120ft with RWx and supervision, no LOB. Pt returned to room and sat in chair with supervision and verbal cues to reach back. Pt left sitting up in chair with call light/phone within reach and RN aware. Assessment : Pt would benefit from skilled OT services to improve fxnl status. Plan for Treatment : See POC VIC WATTS OTR/L - 11/29/2019 14:56 EDT Pain Assessment Pain Scaled Used : 0-10 Pain scale Pain Score Pre-Intervention : 5 Location : Hip, right VIC WATTS OTR/L - 11/29/2019 14:56 EDT Image 1 - Images currently included in the form version of this document have not been included in the text rendition version of the form. Anticipated Discharge Needs, OT/PT Anticipated Discharge to : Home, with home health, Other: Level 1 Recommend Continued Therapy at Discharge : Yes VIC WATTS, OTR/L - 11/29/2019 14:[address] [facility] OT Charges OT Eval Moderate Complexity : 1 VIC WATTS OTR/L - 11/29/2019 14:56 EDT Electronically signed by Teagan [facility] Conversion Research Manager Cerner at 09/18/2022 5:00 PM CDT documented in this encounter Plan of Treatment Not on file documented as of this encounter Visit Diagnoses Not on filedocumented in this encounter
--- OUTSIDE RECORDS SUMMARY | 2025-01-31 14:28 | XMS_ITS | Encounter Summary ---
Author Organization [employer] ([place], [place], [place], [place], [place]) Address [address] [place] [address] Care Team Providers Care Silk Top Hat Body Maker Name Role Phone Unavailable Primary Care Provider Unavailabl e Encounter Details Date Type Department Care Team (Late st Contact Info) Description 11/29/2019 Transcribed Document [facility] Radiology [address] [place] [address] Provider, Deni Ruiz MD Social [...] Note - Deni Ruiz ProviderMD - 11/29/2019 4:55 PM EDT Orthopedic Nurse Navigator Entered On: 11/29/2019 16:04 EDT Performed On: 11/29/2019 15:55 EDT by JOHN GREWAL RN-Ortho Nurse Navigator Orthopedic Nurse Navigator Assessment Attended Joint Academy : Yes Joint AcademyType : Online Joint Estimator And Drafter Name : , Luis Daniel Type of Surgery : Anterior Hip Replacement, Right Anticipated Discharge Plan : Home Health PT Anticipated Discharge Plan Comment : Pt plans to d/c home with the help of her and requests [facility] for home PT, which they have used in the past. JOHN GREWAL RN-Ortho Nurse Navigator - 11/29/2019 15:55 EDT Teaching/Learning Assessment Barriers To Learning : None evident Individuals Taught : Patient Readiness to Learn : Cooperative Readiness to Learn : Demonstration, Explanation, Printed materials, Video/Educational TV Learning Style Preferences Patient : Verbal explanation Learning Style Preferences Family : Verbal explanation Education Comment : Pt verbalized understanding of incentive spirometry. Had difficulty initially with getting class online on her ipad. Her stepson helped her access it via phone. JOHN GREWAL RN-Ortho Nurse Navigator - 11/29/2019 15:55 EDT Education Topics, Orthopedic Pre-Op Ortho Pre-Op Education Grid Ed-Assistive Devices : Verbalizes understanding DVT Prophylaxis : Verbalizes understanding Family Instructions : Verbalizes understanding Herbs/Supplement Instructions : Verbalizes understanding Laboratory Studies : Verbalizes understanding Medication Instructions : Verbalizes understanding NPO : Verbalizes understanding Ed-Occupational Therapy : Verbalizes understanding Pain Management : Verbalizes understanding Physical Prep : Verbalizes understanding Physical Therapy : Verbalizes understanding Plan of Care : Verbalizes understanding Positioning : Verbalizes understanding Post-op Activity/Exercise Regimen : Verbalizes understanding Postoperative Home Needs : Verbalizes understanding Post-operative Monitoring : Verbalizes understanding Post-Op Orthopedic Equipment : Verbalizes understanding Procedure Information : Verbalizes understanding Respiratory Care : Verbalizes understanding Surgical Site : Verbalizes understanding Tubes/Drains/IV's : Verbalizes understanding Turn/Cough/Deep Breathe : Verbalizes understanding Weight Bearing : Verbalizes understanding Ed-Orthopedic Pre-Op, Other : Verbalizes understanding JOHN GREWAL RN-Ortho Nurse Navigator - 11/29/2019 15:55 EDT documented in this encounter Plan of Treatment Not on file documented as of this encounter Visit Diagnoses Not on filedocumented in this encounter
--- OUTSIDE RECORDS SUMMARY | 2025-01-31 14:28 | XMS_ITS | Encounter Summary ---
Author Organization [employer] ([place], [place], [place], [place], [place]) Address [address] [place] [address] Care Team Providers Care Strap Folding Machine Operator Name Role Phone Unavailable Primary Care Provider Unavailabl e Encounter Details Date Type Department Care Team (Late st Contact Info) Description 11/29/2019 Transcribed Document [facility] Radiology [address] [place] [address] ProviderDeni MD Social History Tobacco Use Types Packs/Day Years Used Date Smoking Tobacco: Never Assessed Comments Unknown Sex and Gender Information Value Date Recorded Sex Assigned at Not on file Legal Sex Female 5:45 PM CDT Gender Identity Not on file Sexual Orientation Not on file documented as of this encounter Miscellaneous Notes * Cerner Conversion Note - [facility] Joseph Richardson MD - 11/29/2019 1:46 PM [...]
--- OUTSIDE RECORDS SUMMARY | 2025-01-31 14:28 | XMS_ITS | Encounter Summary ---
Author Organization [employer] ([place], [place], [place], [place], [place]) Address [address] [place] [address] Care Team Providers Care Casting Wheel Operator Helper Name Role Phone Unavailable Primary Care Provider Unavailabl e Encounter Details Date Type Department Care Team (Late st Contact Info) Description 11/29/2019 Transcribed Document [facility] Radiology [address] [place] [address] ProviderDeni MD Social History Tobacco Use Types Packs/Day Years Used Date Smoking Tobacco: Never Assessed Comments Unknown Sex and Gender Information Value Date Recorded Sex Assigned at Not on file Legal Sex Female 5:45 PM CDT Gender Identity Not on file Sexual Orientation Not on file documented as of this encounter Miscellaneous Notes * Cerner Conversion Note - [facility] Joseph Richardson MD - 11/29/2019 7:00 PM EDT Pain Assessment Entered On: 11/30/2019 3:22 EDT Performed On: 11/29/2019 19:09 EDT by Wanda Kuo RN Intervention Information: acetaminophen Performed by Marina Salazar RN on 11/29/2019 18:09:00 EDT acetaminophen,1000mg Oral Pain Assessment Pain Assessment : Follow-up assessment Pain Scale Goal : 3 Pain Scale Used : 0-10 Scale Wanda Kuo RN - 11/30/2019 3:22 EDT Pain Scale Intensity : 0 Wanda Kuo RN - 11/30/2019 3:22 EDT Image 4 - Images currently included in the form version of this document have not been included in the text rendition version of the form. documented in this encounter Plan of Treatment Not on file documented as of this encounter Visit Diagnoses Not on filedocumented in this encounter
--- OUTSIDE RECORDS SUMMARY | 2025-01-31 14:29 | XMS_ITS | Encounter Summary ---
Author Organization [employer] ([place], [place], [place], [place], [place]) Address [address] [place] [id number] Care Team Providers Care Customer Service Representative Name Role Phone Unavailable Primary Care Provider Unavailabl e Encounter Details Date Type Department Care Team (Late st Contact Info) Description 11/30/2019 Transcribed Document [facility] Radiology [address] [place] [address] Provider, Deni Ruiz MD Social [...] Note - Deni Ruiz ProviderMD - 11/30/2019 12:59 PM EDT On Going Discharge Planning Entered On: 11/30/2019 12:00 EDT Performed On: 11/30/2019 11:59 EDT by KATY SOLOMON RN-Rn StaffFitness And Wellness Instructor Progress Note Discharge Arrangements : Patient Post-Acute Information Patient Name: JAN ESPINAL Gender: Female : [birth year] Age: 69 Years No Post-Acute Placement(s) Listed No Post-Acute Service(s) Listed No [place] Referral(s) Listed Discharge Options Discussed with Patient : Home Health Barriers to Discharge Unresolved : All resolved Designation of Choice Signed : Yes Patient Offered Choice/Affiliations Explained : Yes List/Info Provided Pt/Fam/Support Person : Home health Were Referrals Sent to Post Acute Providers : Yes Physician Agreeable to Move Forward with D/C Plan? : Yes Did you Attend Multidisciplinary Rounds? : Yes KATY SOLOMON, RN-Rn Staff - 11/30/2019 11:59 EDT documented in this encounter Plan of Treatment Not on file documented as of this encounter Visit Diagnoses Not on filedocumented in this encounter
--- OUTSIDE RECORDS SUMMARY | 2025-01-31 14:29 | XMS_ITS | Encounter Summary ---
Author Organization [employer] ([place], [place], [place], [place], [place]) Address [address] [place] [address] Care Team Providers Care Android Ui Developer Name Role Phone Unavailable Primary Care Provider Unavailabl e Encounter Details Date Type Department Care Team (Late st Contact Info) Description 11/30/2019 Transcribed Document [facility] Radiology [address] [place] [address] Provider, Deni Ruiz MD Social [...] Note - Deni Richardson MD - 11/30/2019 6:14 AM EDT Patient: JAN ESPINAL Age: 69 Years Sex: Female : 1950 Admit Date 11/29/2019 06:27 Discharge Date 11/30/2019 Primary Care Provider ESME LANDIS LISTED Discharge Diagnosis History of hip replacement, total 11/30/2019 Z96.649 ICD-10-CM Procedures SN - Proc - Procedure: Hip Total Anterior Approach (11/29/19 08:57:36) Reason for Hospitalization Patient suffered from endstage arthritis of the right hip. Patient had failed all conservative measures. Patient was ultimately offered total hip arthroplasty. Risks, benefits, and alternatives to care were explained to the patient and written consent was obtained. Hospital Course Patient was taken to the operating room on date of admission where they underwent the aforementioned procedure without complication. They were then transferred to the floor for postoperative care including PT & OT, consultation of hospitalist for medical care, and discharge planning by nurse navigator/case management. Vital Signs T: 36.4 ??C TMIN: 36.1 ??C TMAX: 36.4 ??C HR: 65(Monitored) RR: 16 BP: 107/60 SpO2: 99% HT: 153.67 cm WT: 50 kg BMI: 21.2 Oxygen Settings (Last) Oxygen Therapy Mode: Nasal cannula (11/29/19 21:56:00) Oxygen Flow Rate: 2 Liter/Min (11/29/19 21:56:00) Physical Exam Dressing is clean dry and secure. Leg lengths are grossly equal. Operative extremity is neurovascularly intact. Discharge Disposition Home with home health Discharge Follow Up ROBBIN CORRALES PA-ORT - 03:15 PM Discharge Medications (25) Active albuterol 90 mcg/inh inhalation powder 1 Puff, PRN, Inhalation, Q4H amLODIPine 10 mg, Oral, Daily aspirin 81 mg, Oral, Daily bisoprolol 5 mg, Oral, Daily calcium citrate 300mg/150mg, Oral, Daily Colace 100 mg oral capsule 100 mg = 1 Cap, PRN, Oral, BID Cranberry 500 mg, Oral, Daily dandelion root 515 mg, Oral, TuTh ezetimibe 10 mg, Oral, At Bedtime ferrous gluconate 324 mg (37.5 mg elemental iron) oral tablet 324 mg = 1 Tab, Oral, Daily L-Arginine 500 mg oral capsule 500 mg = 1 Cap, Oral, TuTh Lasix 5 mg, Oral, Daily losartan 50 mg, Oral, Daily mangosteen 500 mg, Oral, Daily meloxicam 15 mg oral tablet 15 mg = 1 Tab, Oral, Daily multivitamin 1 gummy, Chew, Daily nitroglycerin 0.4 mg, PRN, SubLINgual, Q5Min Non Formulary med 750 mg, Oral, Daily Non Formulary med 20/1 mg, Oral, Daily Non Formulary med 500 mg, Oral, Daily Non Formulary med 450 mg, Oral, TuTh Non Formulary med 425 mg, Oral, Daily Percocet 5/325 oral tablet 1 Tab, PRN, Oral, Q4H Plavix 75 mg, Oral, Daily Vitamin D3 10 mcg, Oral, Daily Code Status Start: 11/29/19 12:46:00 EDT, Full Code, Continuous Order Condition on Discharge Stable Consulting Physicians DAVI TROTTER MD-ANS DOODNAUTH, DAVANAND C, MD-INT Current Diet Order Diet, Adult - Ordered -- Start: 11/29/19 12:46:00 EDT, Regular Diet, Isolation: Standard Precautions Patient Discharge Summary Orders Patient is to be weightbearing as tolerated. Patient should use a walker at all times until index follow-up in order to moderate level of activity. Patient may then transition from a walker to a cane at the discretion of physical therapy. Bilateral thigh-high PATRICIA hose should be worn 21+ hours per day for 6 weeks for DVT prophylaxis. Chemoprophylaxis for DVT (see medlist)times 4 weeks. Dressing should remain in place for 7-12 days during which time the patient may shower provided the margins of the dressing are intact. Dressing should be removed and incision left open to air. Any wound drainage should be reported orthopedic office.Continuous use of cold compression wrap as needed for pain and swelling Pending Labs In Process SENDOUT REPORT [id number], [id number], RT - Routine, 11/29/19 9:01:00 EDT Pathology Tissue Request [id number], [id number], 11/29/19 9:01:00 EDT, Collected, RT - Routine, 11/29/19 10:46:09 EDT, IVY KRISHNAN, [employer], Specimen Type: AP Specimen, Specimen Desc: A. RIGHT FEMORAL HEAD In Transit Path Tissue Request, Sendout Specimen Type: AP Specimen, Routine collect, 11/29/19 9:01:00 EDT, 1-Time, Collected, Stop: 11/29/19 9:01:00 EDT, Nurse Collect, Specimen Desc: A. RIGHT FEMORAL HEAD, Print Label By Order Location Ordered CBC w/ Auto Diff Specimen Type: Blood, AM Draw collect, 11/30/19 4:00:00 EDT, Daily, For: 3 Day(s), Stop: 12/02/19 4:00:00 EDT, Lab Collect BMP Basic Metabolic Panel Specimen Type: Blood, AM Draw collect, 11/30/19 4:00:00 EDT, Daily, For: 2 Day(s), Stop: 12/01/19 4:00:00 EDT, Lab Collect Time Spent on Discharge 20 minutes documented in this encounter Plan of Treatment Not on file documented as of this encounter Visit Diagnoses Not on filedocumented in this encounter
--- OUTSIDE RECORDS SUMMARY | 2025-01-31 14:29 | XMS_ITS | Encounter Summary ---
Author Organization [employer] ([place], [place], [place], [place], [place]) Address [address] [place] [address] Care Team Providers Care Panel Cutter Name Role Phone Unavailable Primary Care Provider Unavailabl e Encounter Details Date Type Department Care Team (Late st Contact Info) Description 11/30/2019 Transcribed Document [facility] Radiology 1 [place] [address] Abhijit Serna MD [address] [address] Social History Tobacco Use Types Packs/Day Years Used Date Smoking Tobacco: Never Assessed Comments Unknown Sex and Gender Information Value Date Recorded Sex Assigned at Not on file Legal Sex Female 5:45 PM CDT Gender Identity Not on file Sexual Orientation Not on file documented as of this encounter Miscellaneous Notes * Cerner Conversion Note - Abhijit Serna MD - 11/30/2019 10:23 AM EDT Patient: JAN ESPINAL Age: 69 years Sex: Female : 1950 Associated Diagnoses: None Author: TATI PURCELL PA-JUANITO 11/30/2019 cc: medical management s/p right total hip arthroplasty S: Pt is doing ok. No f'/c/s. No n/v/d. (-) gas, (-) BM. No CP, SOA, palpitations. No cough or sputum. Urinating well. +post op pain. Using incentive spirometer. doing uh better today. HPI: Patient is a 69 yo female admitted to [facility] per Dr. Alves for a right total hip arthroplasty. Preoperatively patient was found to have advanced osteoarthritis of the right hip and elected surgical intervention after failing conservative treatment. Patient is followed perioperatively while hospitalized for medical management. Initial visit on floor - Denies prior stroke or seizure. Denies MS, CHF. sometimes heart flutter. Denies DM. Denies [...] cancer, heart problems, alcoholic father - alcoholic, MS brother - alcoholic, drugs Social & Psychosocial [...] Daily Vitamin D3 10 mcg, Oral, Daily Exam: Vitals Signs (last 24 hrs) Last Charted Minimum Maximum Temp 97 (NOV 28 07:00) 97 (NOV 28 07:00) 97 (NOV 28:) Mon HR 61 (NOV 28:00) 61 (NOV 28:00) 61 (NOV 28:) Resp Rate 20 (NOV 28:) 20 (NOV 28:00) 20 (NOV 28:) SBP 124 (NOV 28 07:00) 124 (NOV 28 07:00) 124 (NOV 28:00) DBP 61 (NOV 28 07:00) 61 (NOV 28 07:00) 61 (NOV 28 07:00) SpO2 100 (NOV 28 07:00) 100 (NOV 28 07:00) 100 (NOV 28:) GEN: Alert, awake, NAD; sitting in chair, eating lunch CV: S1S2, no murmur. No LE edema Resp: CTAB, NL Abd: Soft, NT, ND +BS Skin: no rashes on inspection and palpation. Ext: No LE edema. No joint edema, erythema. no calf tenderness Neuro: A&O x 3 Data: CBC Results (Current Encounter/Past 24 Hours) WBC 14.7 K/uL HI 11/30/2019 04:23 Hct 28.5 % LOW 11/30/2019 04:23 Hgb 9.3 g/dL LOW 11/30/2019 04:23 Platelet Count 172 K/uL 11/30/2019 04:23 CMP Results (Current Encounter/Past 24 Hours) eGFR NonAfrican 55 mL/min/1.73m2 LOW 11/30/2019 04:39 Creatinine Level 1.00 mg/dL 11/30/2019 04:39 Bun/Creatinine 18.0 11/30/2019 04:39 eGFR >60 mL/min/1.73m2 11/30/2019 04:39 Sodium Level 133 mmol/L LOW 11/30/2019 04:39 Potassium Level 4.4 mmol/L 11/30/2019 04:39 Chloride Level 105 mmol/L 11/30/2019 04:39 Carbon Dioxide Level 22 mmol/L 11/30/2019 04:39 Anion Gap 10 11/30/2019 04:39 Blood Urea Nitrogen 18 mg/dL 11/30/2019 04:39 Glucose Level 129 mg/dL HI 11/30/2019 04:39 Calcium Level 7.6 mg/dL LOW 11/30/2019 04:39 preop reviewed cbc, bmp Impression: advanced OA right hip -s/p right total hip arthroplasty HTN postop leukocytosis --no s/sx of infxn po nausea -- doing better with meds. po hypotension preop cr 1.2, reduced gfr 44 Plan: Pending DC home later today per ortho with home health hold amlodipine and losartan at home if SBP is <130. pt needs to f/u with PCP or arc cutter plasma arc if needs to remain on current doses of BP meds or needs reduction; pt apparently has been losing weight. OK to discharge from IM standpoint pain meds per surgery DVT prophylaxis per surgery bowel regimen at home IS at home Assessment and treatment plan made in conjunction with Sunita Serna MD Scribed by Kat Carter documented in this encounter Plan of Treatment Not on file documented as of this encounter Visit Diagnoses Not on filedocumented in this encounter
--- OUTSIDE RECORDS SUMMARY | 2025-01-31 14:29 | XMS_ITS | Referral Summary ---
Author Organization [employer] ([place], [place], [place], [place], [place]) Address [address] [place] [address] Care Team Providers Care Weed Science Research Technician Name Role Phone Unavailable Primary Care [...]
--- OUTSIDE RECORDS SUMMARY | 2025-01-31 14:29 | XMS_ITS | Encounter Summary ---
Author Organization [employer] ([place], [place], [place], [place], [place]) Address [address] [place] [address] Care Team Providers Care Associate Professor Of Automation Name Role Phone Unavailable Primary Care Provider Unavailabl e Encounter Details Date Type Department Care Team (Late st Contact Info) Description 11/30/2019 Transcribed Document [facility] Radiology 1 [place] [address] Provider, [facility] MD Joseph Social History Tobacco Use Types Packs/Day Years Used Date Smoking Tobacco: Never Assessed Comments Unknown Sex and Gender Information Value Date Recorded Sex Assigned at Not on file Legal Sex Female 5:45 PM CDT Gender Identity Not on file Sexual Orientation Not on file documented as of this encounter Miscellaneous Notes * Cerner Conversion Note - [facility] Joseph Richardson MD - 11/30/2019 2:53 PM EDT [facility] [place] [address] JAN ESPINAL :1950 Visit Time:11/29/2019 [...] do next Instructions From Your Care Team Please HOLD Amlodipine and Losartan for Systolic Blood Pressure less than 130 Diet after Discharge: Resume usual diet as tolerated Activity after Discharge: No strenuous activity Lifting Restrictions: No heavy lifting over 10 pounds Weight Bearing: Full weight bearing Driving after Discharge: Do not drive Showering/Bathing: May shower, No tub bathing, soaking or swimming, Cover site with GLAD [id number] while showering Notify Provider of: Foul smelling [...] min off) Community Services: [facility] Services: [phone] Medical Equipment for Home Use: Discharge Follow Up Instructions: Follow-up Dr. Alves 3 wks ([phone]) Follow Up Instructions: Continue PATRICIA hose for 6 weeks Follow Up Instructions: Leave Aquacel dressing in place x 7-10d, then open to air. Follow-Up Appointments Follow Up with ROBBIN CORRALES PA-ORKareem When 12/20/2019 03:15 PM EDT Where: [address] [place] [address]- Medications What How Much When Instructions Next [...] concern regarding your total joint replacement Call 269 if: E You have sudden chest pain or shortness of breath E You fall and cannot get up E Life-threatening signs or symptoms E Stroke signs and symptoms: Facial droop, uneven smile, arm numbness, arm weakness, slurred speech, difficulty speaking or understanding If you are a patient of Dr. Alves or Dr. Ortega, call [phone] If you are a patient of Dr. Nolasco, call [phone] Nurse Navigator: Tamera Pereyra Office: [phone]; ; available during regular business hours Discharge [...] Assistance with quitting is available by contacting 8-993-AWQHNOW. This is a free resource providing counseling, support, and referral. Or you may contact your personal physician. [place] Suicide Prevention Lifeline: The National Suicide Prevention [...] CPR? There are two easy steps: Call 9-1-1 if you see a teen or adult [...] range between ( 0.0 and 7.0 ) Menard #: 1.30 K/uL -- Normal range between ( 0.16 and 1.00 ) Eos #: 0.00 x10(3)/uL -- Normal range between ( 0.00 and 0.80 ) Menard %: 8.8 % -- Normal range between [...] 9.6 and 12.0 ) Patient Name:JAN ESPINAL I have received and understand this information and was given the opportunity to ask questions. Patient/Director Of Retail Name: Patient/Director Of Retail Signature: Relationship to Patient: Clinician/Hospital Director Of Retail Signature: Date: Electronically signed by Corona Candelaria Conversion Station Installation Supervisor Scott at 09/18/2022 5:04 PM CDT documented in this encounter Plan of Treatment Not on file documented as of this encounter Visit Diagnoses Not on filedocumented in this encounter
--- OUTSIDE RECORDS SUMMARY | 2025-01-31 14:29 | XMS_ITS | Encounter Summary ---
Author Organization [employer] ([place], [place], [place], [place], [place]) Address [address] [place] [address] Care Team Providers Care Roustabout Crew Name Role Phone Unavailable Primary Care Provider Unavailabl e Encounter Details Date Type Department Care Team (Late st Contact Info) Description 11/29/2019 Transcribed Document [facility] 1 [place] [address] Deni Richardson MD Social History [...] Cerner Conversion Note - [facility] Joseph ProviderMD - 11/29/2019 12:15 PM EDT Meds to Bed Enrollment Entered On: 11/30/2019 7:45 EDT Performed On: 11/29/2019 11:15 EDT by William Henley WOOD MACHINIST APPRENTICE LEAD Meds to Bed Enrollment Patient Enrollment Decision: : Yes/enroll in meds to bed program William Henley WOOD MACHINIST APPRENTICE LEAD - 11/30/2019 7:45 EDT documented in this encounter Plan of Treatment Not on file documented as of this encounter Visit Diagnoses Not on filedocumented in this encounter
--- OUTSIDE RECORDS SUMMARY | 2025-01-31 14:29 | XMS_ITS | Encounter Summary ---
Author Organization [employer] ([place], [place], [place], [place], [place]) Address [address] [place] [address] Care Team Providers Care Machine Set Up Operator Name Role Phone Unavailable Primary Care Provider Unavailabl e Encounter Details Date Type Department Care Team (Late st Contact Info) Description 11/29/2019 Transcribed Document [facility] Radiology 1 [place] [address] ProviderDeni MD Social History Tobacco [...] Note - Deni Ruiz ProviderMD - 11/29/2019 3:00 PM EDT Pain Assessment Entered On: 11/29/2019 14:01 EDT Performed On: 11/29/2019 13:52 EDT by Marina Salazar RN Intervention Information: ketorolac Performed by Marina Salazar RN on 11/29/2019 13:22:00 EDT ketorolac,15mg IV Push,Left Hand Pain Assessment [...]
[2025-02-03 02:15] LABS: Pancreatic Elastase, Fecal 510 (>200)
== END 2025-01-31 23:59 | disposition home or self-care (01) ==
LOC: LAB 14:24
PROVIDERS: PCP Family Medicine; Visit Provider Internal Medicine Gastroenterology
DX: R19.7 Diarrhea, unspecified (principal); R14.0 Abdominal distension (gaseous)
CPT/HCPCS: 82653